=== PATIENT | female | born 1945 | race Caucasian/White ===

== ENCOUNTER → 2016-07-11 | Outpatient (CLI) | payer MEDICARE ==
[~2016-07-11] MED LIST: ACIDOPHILUS1 CAP PO; ALBUTEROL-200 PUFFS/ IH; ALBUTEROL2.5 MG/NEB IN; ALPRAZOLAM0.25 MG PO; ARAVA20 MG PO; ATORVASTATIN CA40 MG PO; BACLOFEN 10MG T10 MG PO; BENICAR HCT 12.1 TA1 PO; BENICAR HCT 12.1 TAB PO; BENICAR40 MG PO; BISOPROLOL 5MG T5 MG PO; BISOPROLOL FUMA10 MG PO; BISOPROLOL5 MG PO; CAPSAICIN; CARDIZEM GENERI30 MG PO; CELLCEPT500 M1 IV; CIPRO 500MG TA500 MG PO; COUMADIN 2.5MG2.5 MG PO; CYCLOBENZ5 MG PO; CYCLOBENZAPRINE10 MG PO; DIOVAN HCT 25 M1 TA1 PO; DIPHENHYDRAMINE25 M1 PO; DIPHENHYDRAMINE25 M3 PO; DOCUSATE SODIU100 MG PO; EXFORGE 5 MG-161 TAB PO; FENTANYL 225 MCG/EAC TD; FISH OIL1000 MG PO; FLOVENT 11110 MCG/PU IH; FOLIC ACID 1MG T1 MG PO; FOLIC ACID1 MG PO; GLIMEPIRIDE 2MG2 MG PO; HUMALOG100 U/ML SC; HYDROCHLOROTHIA1 TA2 PO; HYDROCODONE 7.51 TAB PO; HYDROCODONE BIT1 T39 PO; IBUPROFEN400 MG PO; JANUVIA50 MG PO; K-DUR 20MEQ TA20 MEQ PO; KEFLEX 500MG.500 MG PO; LEFLUNOMIDE20 MG PO; LEVAQUIN500 MG PO; LIPITOR40 MG PO; LYRICA 100 MG100 MG PO; MACROBID 100MG100 MG PO; METFORMIN500 MG PO; METHOTREXATE 22.5 MG PO; MIRALAX17 GM/PACK PO; MULTAQ400 M1 PO; MULTAQ400 MG PO; NEURONTIN 100100 MG PO; NEURONTIN800 MG PO; NITRO BID PO; NITROFURANTOIN100 M4 PO; NOVOLIN 70/30 710 ML SC; NOVOLOG100 U/ML SC; NYSTATIN 1100000 UNI PO; NYSTATIN TO30 GM/BOT TP; Novolog100 U/ML SC; ONDANSETRON HYDR4 MG PO; PANTOPRAZOLE SO40 M1 PO; PERCOCET 10 MG1 EACH PO; PHENERGAN 25MG.25 M1 PO; PLAQUENIL200 MG PO; POTASSIUM CHLO20 ME2 PO; PRAVACHOL40 MG PO; PRAVASTATIN 40M40 MG PO; PREDNISONE 20MG20 MG PO; PROMETHAZINE HC25 M1 PO; PROVENTIL0.09 MG/A1 IH; PROVENTIL0.09 MG/Ac IH; RANEXA500 M1 PO; ROXICODONE5 MG PO; SOMA 350MG TAB350 MG PO; SYMBICORT1 AE1 IH; TREXALL10 MG PO; TRIBENZOR 10 MG1 TAB; TRIBENZOR1 TA1 PO; VICODIN 5/500 T1 TAB PO; WARFARIN 3MG TAB3 MG PO; WARFARIN SOD5 M1 PO; WARFARIN SODIU2.5 MG PO; WARFARIN SODIUM1 MG PO; ZOLPIDEM 10MG T10 MG PO
== END ==
LOC: LAB 10:34
DX: I48.0 Paroxysmal atrial fibrillation (principal); Z79.01 Long term (current) use of anticoagulants

== ENCOUNTER 2016-10-29 14:15 | Emergency (ER) | payer MEDICARE ==
[~2016-10-29] VITALS: Ht 165.1 cm; Wt 73.0 kg
[~2016-10-29 14:15] MED LIST changes: +OMNICEF250 MG/5 M GT
--- OUTSIDE RECORDS SUMMARY | 2016-10-29 14:26 | External Medical Summary Rpt ---
Author Author [facility] Organization [facility] Address Unknown Phone Unavailable Care Team Providers Care Transformer Maker Name Role Phone DEANDRA, (REF) PCP [phone] Encounter [facility] [id number] Date(s): 10/21/16 - 10/25/16 [facility] [address] [place] [id number]- Discharge Diagnosis: Ileus Discharge Disposition: IP Self Care / Home Attending Physician: CHRISTIAN ELENA MD-INT Admitting Physician: CHRISTIAN ELENA MD-INT Referring Physician: CHRISTIAN ELENA MD-INT Reason for Visit UNSPECIFIED INTESTINAL OBSTRUCTION Vital Signs Most recent 1 2 3 to oldest [Reference Range]: Temperature Oral Oral Oral Source (10/25/16 3:10 PM) (10/25/16 10:57 AM) (10/25/16 6:35 AM) Temperature Fahrenheit Fahrenheit Fahrenheit Mode (10/25/16 3:10 PM) (10/25/16 10:57 AM) (10/25/16 6:35 AM) Temperature, 99 Deg F 98.2 Deg F 98.7 Deg F Fahrenheit (10/25/16 3:10 PM) (10/25/16 10:57 AM) (10/25/16 6:35 AM) [96.8-99.7 Deg F] Clinical 37.2 Deg C 36.8 Deg C 37.1 Deg C Temperature, (10/25/16 3:10 PM) (10/25/16 10:57 AM) (10/25/16 6:35 AM) C Heart Rate, 75 bpm Apical (10/21/16 5:18 PM) [60-100 bpm] Heart Rate 75 bpm 75 bpm 75 bpm Monitored (10/25/16 3:10 PM) (10/25/16 10:57 AM) (10/25/16 6:35 AM) [60-100 bpm] Respiratory 14 Breaths/Min 14 Breaths/Min 18 Breaths/Min Rate [14-20 (10/25/16 6:35 AM) (10/25/16 3:00 AM) (10/24/16 11:00 PM) Breaths/Min] Blood 124/73 mmHg 119/69 mmHg 116/70 mmHg Pressure (10/25/16 3:10 PM) (10/25/16 10:57 AM) (10/25/16 6:35 AM) [90-140/60-9 0 mmHg] Mean 86 89 95 Arterial (10/25/16 3:10 PM) (10/25/16 10:57 AM) (10/25/16 3:00 AM) Pressure (MAP)-BMDI Blood 145/72 mmHg Pressure *HI* Invasive (10/21/16 5:18 PM) [90-140/60-9 0 mmHg] Mean 100 mmHg Arterial (10/21/16 5:18 PM) Pressure, Line 1 Oxygen 96 % 98 % 96 % Saturation (10/23/16 9:00 AM) (10/22/16 8:57 PM) (10/22/16 8:00 AM) [94-100 %] Oxygen Room air Room air Room air Therapy Mode (10/25/16 8:00 AM) (10/25/16 6:35 AM) (10/24/16 6:08 PM) FiO2 Nursing 96 % 97 % 96 % (10/25/16 8:00 AM) (10/25/16 6:35 AM) (10/24/16 6:08 PM) Height Entry [place] Format (10/24/16 5:29 AM) (10/23/16 5:15 AM) (10/22/16 5:56 AM) Height/Lengt 5 ft 5 ft 5 ft h, ETHIOPIAN (10/24/16 5:29 AM) (10/23/16 5:15 AM) (10/22/16 5:56 AM) (ft) Height/Lengt 0.05 Inch 0.05 Inch 0.05 Inch h ETHIOPIAN (10/24/16 5:29 AM) (10/23/16 5:15 AM) (10/22/16 5:56 AM) CLINICALHEIG 152.53 cm 152.53 cm 152.53 cm HT (10/24/16 5:29 AM) (10/23/16 5:15 AM) (10/22/16 5:56 AM) Weight Bed scale Source (10/21/16 4:39 PM) Weight Entry [place] Format (10/21/16 4:39 PM) Weight 162 lb Citizen Of [place] lb (10/21/16 4:39 PM) CLINICALWEIG 73.64 kg HT (10/21/16 4:39 PM) Body Surface 1.71 m2 Area (BSA) (10/21/16 4:39 PM) Body Mass 31.7 kg/m2 Index *HI* [19.0-24.0 (10/21/16 4:39 PM) kg/m2] Routine Bed scale Bed scale Bed scale Weight (10/25/16 5:47 AM) (10/24/16 5:29 AM) (10/23/16 5:15 AM) Source Routine [place] Weight Entry (10/25/16 5:47 AM) (10/24/16 5:29 AM) (10/23/16 5:15 AM) Format Routine 158 lb 162 lb 170 lb Weight, (10/25/16 5:47 AM) (10/24/16 5:29 AM) (10/23/16 5:15 AM) Pounds Routine 6 oz Weight, (10/25/16 5:47 AM) Ounces Routine 73.64 kg 77.27 kg 80.45 kg Weight (10/24/16 5:29 AM) (10/23/16 5:15 AM) (10/22/16 5:56 AM) Calculation Body Surface 1.71 m2 1.74 m2 1.77 m2 Area (BSA), (10/24/16 5:29 AM) (10/23/16 5:15 AM) (10/22/16 5:56 AM) Routine [place] Body 45 kg Weight (10/21/16 4:39 PM) Problem List Condition Effective Status Health Informant Dates Status Anxiety(Conf Active irmed) Asthma(Confi Active rmed) Atrial Active fibrillation (Confirmed) Back Active pain(Confirm ed) 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), right sided weakness(Con firmed) Diabetes(Con Active firmed) Dizziness(Co Active patient nfirmed) Fatigue(Conf Active patient irmed) GERD Active (gastroesoph ageal reflux disease)(Con firmed) Status post 07/20/16 Active patient insertion of percutaneous endoscopic gastrostomy (PEG) tube(Confirm ed) Migraine-clu Active patient ster headache syndrome(Con firmed) HTN Active (hypertensio n)(Confirmed ) hx Active MRSA(Confirm ed) hx Active PPM(Confirme d) Hyperlipidem Active ia(Confirmed ) Hyperlipidem Active patient ia(Confirmed ) Hypertension Active patient (Confirmed) Ileus(Confir Active med) Migraines(Co Active nfirmed) Migraines(Co Active patient nfirmed) Osteoarthrit Active is(Confirmed ) Palpitations Active patient (Confirmed) Paroxysmal Active a-fib(Confir med) PUD (peptic Active ulcer disease)(Con firmed) CARSON (renal Resolved artery stenosis)(Co nfirmed) SSS (sick Active sinus syndrome)(Co nfirmed) Syncope(Conf Active irmed) Allergies, Adverse Reactions, Alerts Substance Reaction Severity Status amitriptyline Active aspirin Active beta blockers Active Cafergot Active caffeine Active chlorproMAZINE Active dichloralphenazo Active ne DULoxetine Active ergotamine Active Flexeril Active iodinated Active radiocontrast dyes isometheptene Active mucate Lyrica Active prochlorperazine Active sulfa drugs Active Tape Active trimethoprim Active Medications acetaminophen (Tylenol 325 mg oral tablet)2 Tab, Oral, Every 4 Hours, As Needed, as needed for fever, Refills: 0 ALPRAZolam0.5 mg, Oral, Four Times A Day, As Needed, as needed for anxiety, Refills: 0 apixaban (Eliquis 5 mg oral tablet) 1 Tab, Oral, Two Times A Day, Refills: 0 atorvastatin 80 mg, Oral, At Bedtime, Refills: 0 bisoprolol (bisoprolol 10 mg oral tablet) 1 Tab, Oral, Every Day, Refills: 0 fentaNYL (fentaNYL 50 mcg/hr transdermal film, extended release)1 Patch, TransDermal , Interval Every 72 Hours, Refills: 0 gabapentin (Neurontin) 800 mg, Oral, Four Times A Day, Refills: 0 insulin aspart (NovoLOG) , See Instructions, Before Meals, Sliding Scale SubCutaneous, Refills: 0 lisinopril (lisinopril 10 mg oral tablet) 1 Tab, Oral, Every Day, Refills: 0 melatonin (Melatonin 3 mg oral tablet) 2 Tab, Oral, At Bedtime, Refills: 0 miconazole topical (miconazole 2% topical powder)1 Application, Topical, Two Times A Day, As Needed, Rash, Refills: 0 nystatin Topical, Every Day, Under breasts, As Needed, Rash, Refills: 0 oxyCODONE (oxyCODONE 10 mg oral tablet)1 Tab, Oral, Every 4 Hours, As Needed, as needed for pain, Refills: 0 pantoprazole (Protonix 40 mg oral delayed release tablet)1 Tab, Oral, Every Day, Refills: 0Ordering provider: SILAS DOMINGUEZ polyethylene glycol 3350 (MiraLax) 17 Gram, Oral, Every Day, Refills: 0 rbuvzscvnqpc03 mg, Oral, Four Times A Day, As Needed, as needed for nausea/vomiting, Refills: 0 scopolamine (scopolamine 1.5 mg transdermal film, extended release)1 Patch, TransDermal , Every 3 Days, 10 Day(s), Refills: 0Ordering provider: SILAS DOMINGUEZ Results GENERAL CHEMISTRY Most recent 1 2 3 to oldest [Reference Range]: Sodium Level 145 mmol/L 144 mmol/L 149 mmol/L [136-146 (10/25/16 5:10 AM) (10/24/16 6:00 AM) *HI* mmol/L] (10/23/16 3:52 AM) Potassium 3.3 mmol/L 3.2 mmol/L 3.5 mmol/L Level *LOW* *LOW* (10/23/16 3:52 AM) [3.5-5.1 (10/25/16 5:10 AM) (10/24/16 6:00 AM) mmol/L] Chloride 110 mmol/L 110 mmol/L 112 mmol/L Level (10/25/16 5:10 AM) (10/24/16 6:00 AM) (10/23/16 3:52 AM) [102-112 mmol/L] Carbon 22 mmol/L 25 mmol/L 23 mmol/L Dioxide (10/25/16 5:10 AM) (10/24/16 6:00 AM) (10/23/16 3:52 AM) Level [21-32 mmol/L] Anion Gap 16 12 18 [9-20] (10/25/16 5:10 AM) (10/24/16 6:00 AM) (10/23/16 3:52 AM) Glucose 146 mg/dL 109 mg/dL 104 mg/dL Level *HI* *HI* (10/23/16 3:52 AM) [74-106 (10/25/16 5:10 AM) (10/24/16 6:00 AM) mg/dL] Blood Urea 18 mg/dL 20 mg/dL 23 mg/dL Nitrogen (10/25/16 5:10 AM) (10/24/16 6:00 AM) *HI* [7-22 mg/dL] (10/23/16 3:52 AM) Creatinine 1.00 mg/dL 0.80 mg/dL 0.80 mg/dL Level (10/25/16 5:10 AM) (10/24/16 6:00 AM) (10/23/16 3:52 AM) [0.55-1.02 mg/dL] eGFR 66 mL/min/1.73m2 86 mL/min/1.73m2 86 mL/min/1.73m2 [>=60 (10/25/16 5:10 AM) (10/24/16 6:00 AM) (10/23/16 3:52 AM) mL/min/1.73m 2] eGFR 55 mL/min/1.73m2 71 mL/min/1.73m2 71 mL/min/1.73m2 NonAfrican *LOW* (10/24/16 6:00 AM) (10/23/16 3:52 AM) [>=60 (10/25/16 5:10 AM) mL/min/1.73m 2] Bun/Creatini 18.0 25.0 28.8 ne (10/25/16 5:10 AM) *HI* *HI* [8.0-20.0] (10/24/16 6:00 AM) (10/23/16 3:52 AM) Calcium 8.6 mg/dL 8.8 mg/dL 8.7 mg/dL Level (10/25/16 5:10 AM) (10/24/16 6:00 AM) (10/23/16 3:52 AM) [8.5-10.1 mg/dL] Protein 6.4 Gram/dL 6.4 Gram/dL Total (10/22/16 6:34 AM) (10/21/16 5:37 PM) [6.4-8.2 Gram/dL] Albumin 3.1 Gram/dL 3.5 Gram/dL Level *LOW* (10/21/16 5:37 PM) [3.4-5.0 (10/22/16 6:34 AM) Gram/dL] Globulin 3.3 Gram/dL 2.9 Gram/dL [1.5-4.5 (10/22/16 6:34 AM) (10/21/16 5:37 PM) Gram/dL] A/G Ratio 0.9 1.2 [1.1-2.5] *LOW* (10/21/16 5:37 PM) (10/22/16 6:34 AM) Bilirubin 0.8 mg/dL 0.5 mg/dL Total (10/22/16 6:34 AM) (10/21/16 5:37 PM) [0.2-1.3 mg/dL] Alk Phos 124 Units/Liter 118 Units/Liter [27-136 (10/22/16 6:34 AM) (10/21/16 5:37 PM) Units/Liter] AST [5-37 14 Units/Liter 23 Units/Liter Units/Liter] (10/22/16 6:34 AM) (10/21/16 5:37 PM) ALT [12-78 18 Units/Liter 30 Units/Liter Units/Liter] (10/22/16 6:34 AM) (10/21/16 5:37 PM) Magnesium 1.9 mg/dL 2.4 mg/dL 2.4 mg/dL Level (10/25/16 5:10 AM) (10/22/16 6:34 AM) (10/21/16 5:36 PM) [1.5-2.4 mg/dL] Phosphorus 3.8 mg/dL [2.3-4.9 (10/22/16 6:34 AM) mg/dL] Device Notified Nurse Notified Nurse No action Require Comment 1 RBV *NA*(10/25/16 RBV *NA*(10/24/16 *NA*(10/24/16 5:51 AM) 9:34 PM) 5:49 PM) Device Notified MD RBV Comment 2 *NA* (10/22/16 4:00 PM) Glucose POC2 175 mg/dL 151 mg/dL 135 mg/dL [70-110 *HI* *HI*(10/25/16 10:48 *HI* mg/dL] (10/25/16 3:47 PM) AM) (10/25/16 5:51 AM) Hgb A1C 6.60 % [4.20-6.30 *HI* %] (10/22/16 6:34 AM) Lactate 239 Units/Liter 274 Units/Liter Dehydrogenas (10/22/16 6:34 AM) *HI* e [84-246 (10/21/16 5:37 PM) Units/Liter] eAVG Glucose 143 mg/dL *NA* (10/22/16 6:34 AM) CARDIAC SPECIFIC MARKERS Most recent 1 2 3 to oldest [Reference Range]: ProBNP 2094 pg/mL [0-125 *HI* pg/mL] (10/23/16 3:52 AM) HEMATOLOGY Most recent 1 2 3 to oldest [Reference Range]: WBC 9.3 K/uL 7.3 K/uL 8.6 K/uL [4.0-10.0 (10/23/16 3:52 AM) (10/22/16 6:34 AM) (10/21/16 5:37 PM) K/uL] RBC 3.23 Million/uL 3.26 Million/uL 3.57 Million/uL [3.93-5.22 *LOW* *LOW* *LOW* Million/uL] (10/23/16 3:52 AM) (10/22/16 6:34 AM) (10/21/16 5:37 PM) Hgb 10.5 g/dL 10.5 g/dL 11.8 g/dL [11.2-15.7 *LOW* *LOW* (10/21/16 5:37 PM) g/dL] (10/23/16 3:52 AM) (10/22/16 6:34 AM) Hct 32.3 % 31.9 % 35.7 % [34.1-44.9 *LOW* *LOW* (10/21/16 5:37 PM) %] (10/23/16 3:52 AM) (10/22/16 6:34 AM) MCV 100.0 fL 97.9 fL 100.0 fL [79.0-94.8 *HI* *HI* *HI* fL] (10/23/16 3:52 AM) (10/22/16 6:34 AM) (10/21/16 5:37 PM) MCH 32.5 pg 32.2 pg 33.1 pg [25.6-32.2 *HI* (10/22/16 6:34 AM) *HI* pg] (10/23/16 3:52 AM) (10/21/16 5:37 PM) MCHC 32.5 Gram/dL 32.9 Gram/dL 33.1 Gram/dL [32.2-36.5 (10/23/16 3:52 AM) (10/22/16 6:34 AM) (10/21/16 5:37 PM) Gram/dL] Platelet 168 K/uL 144 K/uL 196 K/uL Count (10/23/16 3:52 AM) *LOW* (10/21/16 5:37 PM) [163-369 (10/22/16 6:34 AM) K/uL] MPV 11.2 fL 11.6 fL 12.3 fL [9.4-12.4 (10/23/16 3:52 AM) (10/22/16 6:34 AM) (10/21/16 5:37 PM) fL] RDW 13.8 % 13.5 % 13.8 % [11.6-14.4 (10/23/16 3:52 AM) (10/22/16 6:34 AM) (10/21/16 5:37 PM) %] Neut % 68.4 % 65.6 % 61.8 % [34.0-71.0 (10/23/16 3:52 AM) (10/22/16 6:34 AM) (10/21/16 5:37 PM) %] Neut # 6.35 K/uL 4.80 K/uL 5.29 K/uL [1.56-6.13 *HI* (10/22/16 6:34 AM) (10/21/16 5:37 PM) K/uL] (10/23/16 3:52 AM) Lymph % 23.3 % 26.4 % 29.8 % [19.3-53.1 (10/23/16 3:52 AM) (10/22/16 6:34 AM) (10/21/16 5:37 PM) %] Lymph # 2.17 x10(3)/uL 1.93 x10(3)/uL 2.56 x10(3)/uL [1.00-3.90 (10/23/16 3:52 AM) (10/22/16 6:34 AM) (10/21/16 5:37 PM) x10(3)/uL] [place] % 7.7 % 6.4 % 5.7 % [3.0-9.0 %] (10/23/16 3:52 AM) (10/22/16 6:34 AM) (10/21/16 5:37 PM) [place] # 0.72 K/uL 0.47 K/uL 0.49 K/uL [0.16-1.00 (10/23/16 3:52 AM) (10/22/16 6:34 AM) (10/21/16 5:37 PM) K/uL] Eos % 0.1 % 1.0 % 2.3 % [0.0-7.0 %] (10/23/16 3:52 AM) (10/22/16 6:34 AM) (10/21/16 5:37 PM) Eos # 0.01 x10(3)/uL 0.07 x10(3)/uL 0.20 x10(3)/uL [0.00-0.80 (10/23/16 3:52 AM) (10/22/16 6:34 AM) (10/21/16 5:37 PM) x10(3)/uL] Baso % 0.2 % 0.3 % 0.2 % [0.0-1.5 %] (10/23/16 3:52 AM) (10/22/16 6:34 AM) (10/21/16 5:37 PM) Baso # 0.02 x10(3)/uL 0.02 x10(3)/uL 0.02 x10(3)/uL [0.00-0.20 (10/23/16 3:52 AM) (10/22/16 6:34 AM) (10/21/16 5:37 PM) x10(3)/uL] Slide Review No No No (10/23/16 3:52 AM) (10/22/16 6:34 AM) (10/21/16 5:37 PM) IG# 0.03 x10(3)/uL 0.02 x10(3)/uL 0.02 x10(3)/uL [0.00-0.05 (10/23/16 3:52 AM) (10/22/16 6:34 AM) (10/21/16 5:37 PM) x10(3)/uL] IG% 0.30 % 0.30 % 0.20 % [0.00-0.60 (10/23/16 3:52 AM) (10/22/16 6:34 AM) (10/21/16 5:37 PM) %] COAGULATION Most recent 1 2 3 to oldest [Reference Range]: PT [9.5-11.3 11.4 Second(s) Second(s)] *HI* (10/22/16 6:34 AM) INR 1.1 [0.0-1.1] (10/22/16 6:34 AM) ENDOCRINOLOGY Most recent 1 2 3 to oldest [Reference Range]: TSH 1.950 mcInt [0.358-3.740 Units/mL (10/21/16 mcInt 5:36 PM) Units/mL] Immunizations No data available for this section Procedures Procedure Date Related Body Site Diagnosis colon resection peg tube insertion Social History Social History Response Type Smoking Status Never smoker Assessment and Plan Extracted from: Title: SOAP Note Author: SILAS DOMINGUEZ Date: 10/24/16 Subjective Nauseated again Abdominal pain no passage of gas or stool active bowel sounds Review of Systems Constitutional: No fever, No chills. Eye: Negative. Ear/Nose/Mouth/Throat: Negative. Respiratory: Negative. Cardiovascular: No chest pain. Gastrointestinal: No nausea, No vomiting, No diarrhea. Genitourinary: No dysuria. Hematology/Lymphatics: Negative. Endocrine: Negative. Immunologic: No recurrent fevers. Musculoskeletal: No back pain. Integumentary: No rash. Neurologic: Negative. Psychiatric: Negative. Health StatusAllergies:Allergic Reactions (Selected)Severity Not DocumentedAmitriptyline- No reactions were documented.Aspirin- No reactions were documented.Beta blockers- No reactions were documented.ChlorproMAZINE- No reactions were documented.DULoxetine- No reactions were documented.Ergotamine- No reactions were documented.Prochlorperazine- No reactions were documented.Sulfa drugs- No reactions were documented.Trimethoprim- No reactions were documented.Nonallergic Reactions (Selected)Severity Not DocumentedIodinated radiocontrast dyes- No reactions were documented.,Allergies (1) ActiveReactioniodinated radiocontrast dyesNone DocumentedCurrent medications: (Selected)Inpatient MedicationsOrderedAtivan: 0.5 mg, Oral, Q4H, PRN: AnxietyDuoNeb 0.5 mg-2.5 mg/3 mL inhalation solution: 3 mL, Nebulized Inhalation, Q6H, PRN: Shortness of BreathDuragesic-50: 1 Patch, TransDermal, [id number]: 5 mg, Oral, BIDMelatonin: 3 mg, Oral, At Bedtime, PRN: SleepNeurontin: 800 mg, Oral, QID, PRN: PainPhenergan: 12.5 mg, IV Push, Q6H, PRN: Nausea/VomitingPhenergan: 12.5 mg, Oral, Q6H, PRN: NauseaProtonix: 40 mg, Oral, DailyTylenol: 650 mg, Oral, Q4H, PRN: Pain (Mild 1-3)Zofran: 4 mg, IV Push, Q4H, PRN: Nauseabaclofen: 10 mg, Oral, TID, PRN: Spasmsbisoprolol: 10 mg, Oral, Dailycalcium gluconate: 1 Gram, 10 mL, 60 mL/Hr, IV Piggyback, Daily, PRN: Other (See Comment)calcium gluconate: 2 Gram, 20 mL, 120 mL/Hr, IV Piggyback, Daily, PRN: Other (See Comment)calcium gluconate: 2 Gram, 20 mL, 120 mL/Hr, IV Piggyback, Q12H, PRN: Other (See Comment)hydrALAZINE: 10 mg, IV Push, Q6H, PRN: Hypertensioninsulin regular sliding scale: Scale B, SubCutaneous, G4Xxmbquteyxb: 10 mg, Oral, Dailymagnesium sulfate: 2 Gram, 50 mL, 25 mL/Hr, IV Piggyback, Daily, PRN: Other (See Comment)magnesium sulfate: 2 Gram, 50 mL, 25 mL/Hr, IV Piggyback, Q2H, PRN: Other (See Comment)morphine: 2 mg, IV Push, Q4H, PRN: Pain (Severe 7-10)oxyCODONE: 5 mg, Oral, Q4H, PRN: Pain (Moderate 4-6)potassium chloride 10 mEq/50 mL intravenous solution: 10 mEq, 50 mL, 50 mL/Hr, IV Piggyback, Q1H, PRN: Other (See Comment)potassium chloride 20 mEq oral tablet, extended release: 20 mEq, 1 Tab, Oral, Q2H, PRN: Other (See Comment)potassium chloride 20 mEq oral tablet, extended release: 60 mEq, 3 Tab, Oral, Q2H, PRN: Other (See Comment)scopolamine 1.5 mg transdermal film, extended release: 1 Patch, TransDermal, W2Bmdfccasgm phosphate: 15 mMole, 5 mL, 50 mL/Hr, IV Piggyback, Daily, PRN: Other (See Comment)sodium phosphate: 15 mMole, 5 mL, 50 mL/Hr, IV Piggyback, Q6H, PRN: Other (See Comment)Documented MedicationsDocumentedALPRAZolam: 0.5 mg, Oral, QID, PRN: as needed for anxiety, 0 Refill(s)Eliquis 5 mg oral tablet: 1 Tab, Oral, BID, 60 Tab, 0 Refill(s)Melatonin 3 mg oral tablet: Tab, Oral, At Bedtime, 0 Refill(s)MiraLax: Gram, Oral, Daily, 0 Refill(s)Neurontin: 800 mg, Oral, QID, 0 Refill(s)NovoLO Units, SubCutaneous, TIDAC, 0 Refill(s)Tylenol 325 mg oral tablet: 2 Tab, Oral, Q4H, PRN: as needed for fever, 0 Refill(s)atorvastatin: 80 mg, Oral, At Bedtime, 0 Refill(s)baclofen 10 mg oral tablet: 1 Tab, Oral, TID, 270 Tab, 0 Refill(s)bisoprolol 10 mg oral tablet: Tab, Oral, Daily, 0 Refill(s)docusate-senna 50 mg-8.6 mg oral tablet: 2 Tab, Oral, Once a day (at bedtime), 30 Tab, 0 Refill(s)famotidine 20 mg oral tablet: 1 Tab, Oral, BID, 180 Tab, 0 Refill(s)fentaNYL 50 mcg/hr transdermal film, extended release: 1 Patch, TransDermal, U66LJqv, 0 Refill(s)folic acid: 1 mg, Oral, Daily, 0 Refill(s)hydrOXYzine hydrochloride 10 mg oral tablet: Tab, Oral, QID, PRN: as needed for anxiety, 0 Refill(s)hydroxychloroquine 200 mg oral tablet: Tab, Oral, BID, 0 Refill(s)lisinopril 10 mg oral tablet: Tab, Oral, Daily, 0 Refill(s)oxyCODONE 5 mg oral tablet: Tab, Oral, Q4H, PRN: Pain (Severe 7-10), 0 Refill(s)promethazine: 25 mg, Oral, QID, PRN: as needed for nausea/vomiting, 0 Refill(s),Medications (29) ActiveScheduled: (7)apixaban 5 mg tab 5 mg 1 Tab, Oral, BIDbisoprolol 5 mg tab 10 mg 2 Tab, Oral, DailyfentaNYL 50 mcg/hr 72 hr patch 1 Patch, TransDermal, W12RCwuhuevmkx regular 1 unit/0.01 mL inj 3mL Scale B, SubCutaneous, O2Omcpxmnldua 10 mg tab 10 mg 1 Tab, Oral, Dailypantoprazole EC 40 mg tab 40 mg 1 Tab, Oral, Dailyscopolamine 1.5 mg/72 hr patch 1 Patch, TransDermal, I6DwvvNppdkqapak: (0)PRN: (22)acetaminophen 325 mg tab 650 mg 2 Tab, Oral, S4Ceuyqmeymg-ywvqrktypbj inh 3 mL 3 mL, Nebulized Inhalation, A9Noscjgcsx 10 mg tab 10 mg 1 Tab, Oral, TIDcalcium gluconate 1 Gram 10 mL, IV Piggyback, Dailycalcium gluconate 2 Gram 20 mL, IV Piggyback, Dailycalcium gluconate 2 Gram 20 mL, IV Piggyback, J99Lycepalvruq 250 mg/5 mL liq 60 mL 800 mg 16 mL, Oral, QIDhydrALAZINE 20 mg/1 mL inj 10 mg 0.5 mL, IV Push, K7FUIVlktueq 0.5 mg tab 0.5 mg 1 Tab, Oral, J5Hfjnchenjh sulfate 2 Gram 50 mL, IV Piggyback, Dailymagnesium sulfate 2 Gram 50 mL, IV Piggyback, Z2Uxndalepqn 1 mg tab 3 mg 3 Tab, Oral, At Bedtimemorphine 2 mg/1 ml cpjt inj 2 mg 1 mL, IV Push, X5Adxtkhlmthuw 4 mg/2 mL inj 4 mg 2 mL, IV Push, I1LpxpHIQCZR 5 mg tab 5 mg 1 Tab, Oral, P9Zqgztlcvuq chloride 10 mEq 50 mL, IV Piggyback, P5Pxemeflexe chloride CR 20 mEq tab 20 mEq 1 Tab, Oral, Q2Gcdbehafsh chloride CR 20 mEq tab 60 mEq 3 Tab, Oral, O5Gfbjcrrmkiioo 25 mg tab 12.5 mg 0.5 Tab, Oral, F3Qiitlinwcjewq 25 mg/1 mL inj 12.5 mg 0.5 mL, IV Push, I1Anwxwjy phosphate 15 mMole 5 mL, IV Piggyback, Dailysodium phosphate 15 mMole 5 mL, IV Piggyback, V7GQtkooad list:MedicalAnxiety / SNOMED CT [id number] / ConfirmedAsthma / SNOMED CT [id number] / ConfirmedAtrial fibrillation / SNOMED CT [id number] / ConfirmedBack pain / SNOMED CT [id number] / ConfirmedDiabetes / SNOMED CT [id number] / ConfirmedGERD (gastroesophageal reflux disease) / SNOMED CT [id number] / ConfirmedHTN (hypertension) / SNOMED CT [id number] / Confirmedhx MRSA / Confirmedhx PPM / ConfirmedHyperlipidemia / SNOMED CT [id number] / ConfirmedMigraines / SNOMED CT [id number] / ConfirmedOsteoarthritis / SNOMED CT [id number] / ConfirmedParoxysmal a-fib / SNOMED CT [id number] / ConfirmedPUD (peptic ulcer disease) / SNOMED CT [id number] / ConfirmedSSS (sick sinus syndrome) / SNOMED CT [id number]-[id number] / ConfirmedSyncope / SNOMED CT [id number] / ConfirmedResolved: CARSON (renal artery stenosis) / SNOMED CT [id number],Active Problems (22)Anxiety Asthma Atrial fibrillation Back pain Diabetes Dizziness Fatigue GERD (gastroesophageal reflux disease) HTN (hypertension) hx MRSA hx PPM Hyperlipidemia Hyperlipidemia Hypertension Migraines Migraines Osteoarthritis Palpitations Paroxysmal a-fib PUD (peptic ulcer disease) SSS (sick sinus syndrome) Syncope Problem list: Medical Anxiety / SNOMED CT [id number] / Confirmed Asthma / SNOMED CT [id number]-[id number] / Confirmed Atrial fibrillation / SNOMED CT [id number] / Confirmed Back pain / SNOMED CT [id number] / Confirmed Diabetes / SNOMED CT [id number] / Confirmed GERD (gastroesophageal reflux disease) / SNOMED CT [id number]-AV5P- [id number] / Confirmed HTN (hypertension) / SNOMED CT [id number] / Confirmed hx MRSA / Confirmed hx PPM / Confirmed Hyperlipidemia / SNOMED CT [id number] / Confirmed Migraines / SNOMED CT [id number] / Confirmed Osteoarthritis / SNOMED CT [id number] / Confirmed Paroxysmal a-fib / SNOMED CT [id number] / Confirmed PUD (peptic ulcer disease) / SNOMED CT [id number] / Confirmed SSS (sick sinus syndrome) / SNOMED CT [id number]-[id number] / Confirmed Syncope / SNOMED CT [id number] / Confirmed Resolved: CARSON (renal artery stenosis) / SNOMED CT [id number]- [id number], Active Problems (22) Anxiety Asthma Atrial fibrillation Back pain Diabetes Dizziness Fatigue GERD (gastroesophageal reflux disease) HTN (hypertension) hx MRSA hx PPM Hyperlipidemia Hyperlipidemia Hypertension Migraines Migraines Osteoarthritis Palpitations Paroxysmal a-fib PUD (peptic ulcer disease) SSS (sick sinus syndrome) Syncope ObjectiveVS/MeasurementsVital Signs/Vital Measures10/24/2016 11:09 EDT Temperature Source Oral Temperature Mode Fahrenheit Temperature, Fahrenheit 98.7 Deg F Clinical Temperature, C 37.1 Deg C Heart Rate Monitored 75 bpm Systolic Blood Pressure 142 mmHg HI Diastolic Blood Pressure 72 mmHg Mean Arterial Pressure (MAP)-[facility] 9210/24/2016 6:30 EDT Temperature Source Oral Temperature Mode Fahrenheit Temperature, Fahrenheit 98.3 Deg F Clinical Temperature, C 36.8 Deg C Heart Rate Monitored 74 bpm Respiratory Rate 16 Breaths/Min Systolic Blood Pressure 137 mmHg Diastolic Blood Pressure 79 mmHg Oxygen Therapy Mode Room air10/24/2016 2:59 EDT Temperature Source Oral Temperature Mode Fahrenheit Temperature, Fahrenheit 98.1 Deg F Clinical Temperature, C 36.7 Deg C Heart Rate Monitored 74 bpm Respiratory Rate 18 Breaths/Min Systolic Blood Pressure 125 mmHg Diastolic Blood Pressure 68 mmHg Mean Arterial Pressure (MAP)-[facility] 8110/24/2016 0:12 EDT Temperature Source Oral Temperature Mode Fahrenheit Temperature, Fahrenheit 99.7 Deg F Clinical Temperature, C 37.6 Deg C Heart Rate Monitored 76 bpm Respiratory Rate 18 Breaths/Min Systolic Blood Pressure 146 mmHg HI Diastolic Blood Pressure 84 mmHg10/24/2016 0:00 EDT Oxygen Therapy Mode Room air10/23/2016 19:43 EDT Temperature Source Oral Temperature Mode Fahrenheit Temperature, Fahrenheit 97.9 Deg F Clinical Temperature, C 36.6 Deg C Heart Rate Monitored 75 bpm Respiratory Rate 16 Breaths/Min Systolic Blood Pressure 145 mmHg HI Diastolic Blood Pressure 87 mmHg Mean Arterial Pressure (MAP)-[facility] 115 Oxygen Therapy Mode Room air10/23/2016 16:03 EDT Temperature Source Oral Temperature Mode Fahrenheit Temperature, Fahrenheit 98.6 Deg F Clinical Temperature, C 37 Deg C Heart Rate Monitored 76 bpm Respiratory Rate 18 Breaths/Min Systolic Blood Pressure 158 mmHg HI Diastolic Blood Pressure 87 mmHg Mean Arterial Pressure (MAP)-[facility] 12110/23/2016 11:37 EDT Temperature Source Oral Temperature Mode Fahrenheit Temperature, Fahrenheit 99.1 Deg F Clinical Temperature, C 37.3 Deg C Heart Rate Monitored 75 bpm Respiratory Rate 18 Breaths/Min Systolic Blood Pressure 158 mmHg HI Diastolic Blood Pressure 81 mmHg Mean Arterial Pressure (MAP)-[facility] 13010/23/2016 11:20 EDT Oxygen Therapy Mode Room air10/23/2016 9:00 EDT Respiratory Rate 18 Breaths/Min Oxygen Saturation 96 % Oxygen Therapy Mode Room air10/23/2016 5:49 EDT Temperature, Fahrenheit 98.4 Deg F Heart Rate Monitored 76 bpm Respiratory Rate 20 Breaths/Min Systolic Blood Pressure 148 mmHg HI Diastolic Blood Pressure 77 mmHg10/23/2016 3:02 EDT Temperature Source Oral Temperature Mode Fahrenheit Temperature, Fahrenheit 98.8 Deg F Temperature, Fahrenheit 98.8 Deg F Clinical Temperature, C 37.1 Deg C Heart Rate Monitored 75 bpm Respiratory Rate 16 Breaths/Min Respiratory Rate 18 Breaths/Min Systolic Blood Pressure 146 mmHg HI Systolic Blood Pressure 146 mmHg HI Diastolic Blood Pressure 74 mmHg Diastolic Blood Pressure 74 mmHg,Vitals Signs (last 24 hrs) Last Charted Minimum MaximumTemp 98.7 (OCTOBER 24 11:09)97.9 (OCTOBER 23 19:43)99.7 (OCTOBER 24 00:12)Mon HR 75 (OCTOBER 24 11:09)74 (OCTOBER 24 02:59)76 (OCTOBER 23 16:03)Resp Rate 16 (OCTOBER 24 06:30)16 (OCTOBER 23 19:43)18 (OCTOBER 23 16:03)SBP H 142 (OCTOBER 24 11:09)125 (OCTOBER 24 02:59)H 158 (OCTOBER 23 16:03)DBP 72 (OCTOBER 24 11:09)68 (OCTOBER 24 02:59)87 (OCTOBER 23 16:03)MAP 92 (OCTOBER 24 11:09)81 (OCTOBER 24 02:59)121 (OCTOBER 23 16:03), Measurements from flowsheet : Measurements10/24/2016 5:29 EDT Height Entry Format [place] Height/Length, ETHIOPIAN (ft) 5 ft Height/Length ETHIOPIAN 0.05 Inch CLINICALHEIGHT 152.53 cm Routine Weight Source Bed scale Routine Weight Entry Format [place] Routine Weight, Pounds 162 lb Routine Weight Calculation 73.64 kg Body Mass Index (BMI), Routine 31.65 kg/m2 Body Surface Area (BSA), Routine 1.71 m210/23/2016 5:15 EDT Height Entry Format [place] Height/Length, ETHIOPIAN (ft) 5 ft Height/Length ETHIOPIAN 0.05 Inch CLINICALHEIGHT 152.53 cm Routine Weight Source Bed scale Routine Weight Entry Format [place] Routine Weight, Pounds 170 lb Routine Weight Calculation 77.27 kg Body Mass Index (BMI), Routine 33.21 kg/m2 Body Surface Area (BSA), Routine 1.74 s2Kllxahj: Alert and oriented, No acute distress.Eye: Pupils are equal, round and reactive to light, Extraocular movements are intact, Normal conjunctiva.HENT: Normocephalic, No pharyngeal erythema.Neck: Supple, Non-tender, No lymphadenopathy.Respiratory: Lungs are clear to auscultation, Breath sounds are equal, No chest wall tenderness.Cardiovascular: Normal rate, Regular rhythm, No murmur, Good pulses equal in all extremities.Gastrointestinal: Soft, Non-tender, Non-distended, Normal bowel sounds.Genitourinary: No costovertebral angle tenderness.Musculoskeletal: Normal range of motion, No tenderness.Integumentary: Warm, No rash.Neurologic: Alert, Oriented, No focal deficits.Psychiatric: Cooperative, Appropriate mood & affect. Body Surface Area (BSA), Routine 1.74 m2 General: Alert and oriented, No acute distress. Eye: Pupils are equal, round and reactive to light, Extraocular movements are intact, Normal conjunctiva. HENT: Normocephalic, No pharyngeal erythema. Neck: Supple, Non-tender, No lymphadenopathy. Respiratory: Lungs are clear to auscultation, Breath sounds are equal, No chest wall tenderness. Cardiovascular: Normal rate, Regular rhythm, No murmur, Good pulses equal in all extremities. Gastrointestinal: Soft, Non-tender, Non-distended, Normal bowel sounds. Genitourinary: No costovertebral angle tenderness. Musculoskeletal: Normal range of motion, No tenderness. Integumentary: Warm, No rash. Neurologic: Alert, Oriented, No focal deficits. Psychiatric: Cooperative, Appropriate mood & affect. Review / Management OCTOBER 24 06:00 144 | 110 | 20 / H 109 L 3.2 | 25 | 0.80 \\ No Radiology Results Found Results review: Labs (Last four charted values) WBC 9.3(OCTOBER 23)7.3(OCTOBER 22)8.6(OCTOBER 21) HB L 10.5(OCTOBER 23)L 10.5(OCTOBER 22)11.8(OCTOBER 21) HCT L 32.3(OCTOBER 23)L 31.9(OCTOBER 22)35.7(OCTOBER 21) Plt 168(OCTOBER 23)L 144(OCTOBER 22)196(OCTOBER 21) Na 144(OCTOBER 24)H 149(OCTOBER 23)146(OCTOBER 22)H 147(OCTOBER 21) K L 3.2(OCTOBER 24)3.5(OCTOBER 23)4.0(OCTOBER 22)4.3(OCTOBER 21) Cl 110(OCTOBER 24)112(OCTOBER 23)112(OCTOBER 22)107(OCTOBER 21) CO2 25(OCTOBER 24)23(OCTOBER 23)25(OCTOBER 22)26(OCTOBER 21) BUN 20(OCTOBER 24)H 23(OCTOBER 23)H 29(OCTOBER 22)H 36(OCTOBER 21) Cr 0.80(OCTOBER 24)0.80(OCTOBER 23)0.90(OCTOBER 22)H 1.20(OCTOBER 21) Glu R H 109(OCTOBER 24)104(OCTOBER 23)H 114(OCTOBER 22)103(OCTOBER 21) Ca 8.8(OCTOBER 24)8.7(OCTOBER 23)L 8.4(OCTOBER 22)8.8(OCTOBER 21) PT H 11.4(OCTOBER 22) INR 1.1(OCTOBER 22) AST 14(OCTOBER 22)23(OCTOBER 21) ALT 18(OCTOBER 22)30(OCTOBER 21) ALK P 124(OCTOBER 22)118(OCTOBER 21) T Bili 0.8(OCTOBER 22)0.5(OCTOBER 21) PTN 6.4(OCTOBER 22)6.4(OCTOBER 21) ALB L 3.1(OCTOBER 22)3.5(OCTOBER 21) . Impression: Normal sized left ventricle. Mild, concentric, left ventricular hypertrophy. Normal left ventricular systolic function with normal systolic strain pattern. Measured ejection fraction 54%. Abnormal diastolic function. No significant valvular heart disease. Impression and PlanSmall bowel obstructionHistory of CHurg Austyn with h/o Colon eqjtvtmsd-B-ojht, opiates, diabetes-General surgery Dr. Nolen following-clear liquid, G-tube to suction, IV fluidsmonitor electrolytesscopolamine patchenema until clear. will advance diet eventually and hoping to send herHypernatremiaDiscontinue d5 0.45 NS at 100 cc hrmonitorHypokalemiaReplacement protocolmonitorAtrial fibrillation-Continue eliquis- cardiology signed offEcho reviewed. 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 Fentanyl patch 50 g every 3 days-Diabetic neuropathy Neurontin 800 mg 4 times a day when necessary, baclofen 5 mg 3 times a day when necessaryBenign essential Hypertension. Hold lisinopril HCTZ olmesartan for small bowel obstruction. hydralazine prnChronic kidney disease diabetic nephropathyTIme spent30 min monitor Hypokalemia Replacement protocol monitor Atrial fibrillation -Continue eliquis - cardiology signed off Echo reviewed. 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 Fentanyl patch 50 g every 3 days -Diabetic neuropathy Neurontin 800 mg 4 times a day when necessary, baclofen 5 mg 3 times a day when necessary Benign essential Hypertension. Hold lisinopril HCTZ olmesartan for small bowel obstruction. hydralazine prn Chronic kidney disease diabetic nephropathy TIme spent30 min Extracted from: Title: SOAP Note Author: SILAS DOMINGUEZ Date: 10/23/16 Subjective nausea better refuses to have IV line Review of Systems Constitutional: No fever, No chills. Eye: Negative. Ear/Nose/Mouth/Throat: Negative. Respiratory: Negative. Cardiovascular: No chest pain. Gastrointestinal: No nausea, No vomiting, No diarrhea. Genitourinary: No dysuria. Hematology/Lymphatics: Negative. Endocrine: Negative. Immunologic: No recurrent fevers. Musculoskeletal: No back pain. Integumentary: No rash. Neurologic: Negative. Psychiatric: Negative. Health StatusAllergies:Allergic Reactions (Selected)Severity Not DocumentedAmitriptyline- No reactions were documented.Aspirin- No reactions were documented.Beta blockers- No reactions were documented.ChlorproMAZINE- No reactions were documented.DULoxetine- No reactions were documented.Ergotamine- No reactions were documented.Prochlorperazine- No reactions were documented.Sulfa drugs- No reactions were documented.Trimethoprim- No reactions were documented.Nonallergic Reactions (Selected)Severity Not DocumentedIodinated radiocontrast dyes- No reactions were documented.,Allergies (1) ActiveReactioniodinated radiocontrast dyesNone DocumentedCurrent medications: (Selected)Inpatient MedicationsOrderedAtivan: 0.5 mg, IV Push, Q4H, PRN: AgitationDuoNeb 0.5 mg-2.5 mg/3 mL inhalation solution: 3 mL, Nebulized Inhalation, Q6H, PRN: Shortness of BreathDuragesic-50: 1 Patch, TransDermal, P32PJjwTzpcsoa: 5 mg, Oral, BIDNeurontin: 800 mg, Oral, QID, PRN: PainPhenergan: 12.5 mg, IV Push, Q6H, PRN: Nausea/VomitingPhenergan: 12.5 mg, Oral, Q6H, PRN: NauseaProtonix: 40 mg, IV Push, DailySodium Chloride 0.9% 1,000 mL: 125 mL/Hr, IntraVENousTylenol: 650 mg, Oral, Q4H, PRN: Pain (Mild 1-3)Zofran: 4 mg, IV Push, Q4H, PRN: Nauseabaclofen: 10 mg, Oral, TID, PRN: Spasmsbisoprolol: 10 mg, Oral, Dailyinsulin regular sliding scale: Scale B, SubCutaneous, H5Ijkhzfbjyck: 10 mg, Oral, Dailymorphine: 2 mg, IV Push, Q4H, PRN: Pain (Severe 7-10)oxyCODONE: 5 mg, Oral, Q4H, PRN: Pain (Moderate 4-6)scopolamine 1.5 mg transdermal film, extended release: 1 Patch, TransDermal, P3ReruPfhkzydxyz MedicationsDocumentedALPRAZolam: 0.5 mg, Oral, QID, PRN: as needed for anxiety, 0 Refill(s)Eliquis 5 mg oral tablet: 1 Tab, Oral, BID, 60 Tab, 0 Refill(s)Melatonin 3 mg oral tablet: Tab, Oral, At Bedtime, 0 Refill(s)MiraLax: Gram, Oral, Daily, 0 Refill(s)Neurontin: 800 mg, Oral, QID, 0 Refill(s)NovoLO Units, SubCutaneous, TIDAC, 0 Refill(s)Tylenol 325 mg oral tablet: 2 Tab, Oral, Q4H, PRN: as needed for fever, 0 Refill(s)atorvastatin: 80 mg, Oral, At Bedtime, 0 Refill(s)baclofen 10 mg oral tablet: 1 Tab, Oral, TID, 270 Tab, 0 Refill(s)bisoprolol 10 mg oral tablet: Tab, Oral, Daily, 0 Refill(s)docusate-senna 50 mg-8.6 mg oral tablet: 2 Tab, Oral, Once a day (at bedtime), 30 Tab, 0 Refill(s)famotidine 20 mg oral tablet: 1 Tab, Oral, BID, 180 Tab, 0 Refill(s)fentaNYL 50 mcg/hr transdermal film, extended release: 1 Patch, TransDermal, Q86LBwe, 0 Refill(s)folic acid: 1 mg, Oral, Daily, 0 Refill(s)hydrOXYzine hydrochloride 10 mg oral tablet: Tab, Oral, QID, PRN: as needed for anxiety, 0 Refill(s)hydroxychloroquine 200 mg oral tablet: Tab, Oral, BID, 0 Refill(s)lisinopril 10 mg oral tablet: Tab, Oral, Daily, 0 Refill(s)oxyCODONE 5 mg oral tablet: Tab, Oral, Q4H, PRN: Pain (Severe 7-10), 0 Refill(s)promethazine: 25 mg, Oral, QID, PRN: as needed for nausea/vomiting, 0 Refill(s),Medications (18) ActiveScheduled: (7)apixaban 5 mg tab 5 mg 1 Tab, Oral, BIDbisoprolol 5 mg tab 10 mg 2 Tab, Oral, DailyfentaNYL 50 mcg/hr 72 hr patch 1 Patch, TransDermal, X48FVvxrszivhy regular 1 unit/0.01 mL inj 3mL Scale B, SubCutaneous, H7Phmfoaprxjf 10 mg tab 10 mg 1 Tab, Oral, Dailypantoprazole 40 mg inj 40 mg, IV Push, Dailyscopolamine 1.5 mg/72 hr patch 1 Patch, TransDermal, A7BxqsTwrnfxabhn: (1)NaCl 0.9% 1,000 mL 1,000 mL, IntraVENous, 125 mL/HrPRN: (10)acetaminophen 325 mg tab 650 mg 2 Tab, Oral, W8Adkxcmgnqv-lbapajewmov inh 3 mL 3 mL, Nebulized Inhalation, P0Girggnwve 10 mg tab 10 mg 1 Tab, Oral, TIDgabapentin 250 mg/5 mL liq 60 mL 800 mg 16 mL, Oral, QIDLORazepam 2 mg/mL inj 0.5 mg 0.25 mL, IV Push, R4Azphehwme 2 mg/1 ml cpjt inj 2 mg 1 mL, IV Push, A3Vfmtlynzgafx 4 mg/2 mL inj 4 mg 2 mL, IV Push, I5PlltBJQBDV 5 mg tab 5 mg 1 Tab, Oral, B1Zgkcvrmggveye 25 mg tab 12.5 mg 0.5 Tab, Oral, I7Jzqolewukzorx 25 mg/1 mL inj 12.5 mg 0.5 mL, IV Push, X1ZLtlogiv list:MedicalAnxiety / SNOMED CT [id number] / ConfirmedAsthma / SNOMED CT [id number] / ConfirmedAtrial fibrillation / SNOMED CT [id number] / ConfirmedBack pain / SNOMED CT [id number] / ConfirmedDiabetes / SNOMED CT [id number] / ConfirmedGERD (gastroesophageal reflux disease) / SNOMED CT [id number] / ConfirmedHTN (hypertension) / SNOMED CT [id number] / Confirmedhx MRSA / Confirmedhx PPM / ConfirmedHyperlipidemia / SNOMED CT [id number] / ConfirmedMigraines / SNOMED CT [id number] / ConfirmedOsteoarthritis / SNOMED CT [id number] / ConfirmedParoxysmal a-fib / SNOMED CT [id number] / ConfirmedPUD (peptic ulcer disease) / SNOMED CT [id number] / ConfirmedSSS (sick sinus syndrome) / SNOMED CT [id number] / ConfirmedSyncope / SNOMED CT [id number] / ConfirmedResolved: CARSON (renal artery stenosis) / SNOMED CT [id number],Active Problems (22)Anxiety Asthma Atrial fibrillation Back pain Diabetes Dizziness Fatigue GERD (gastroesophageal reflux disease) HTN (hypertension) hx MRSA hx PPM Hyperlipidemia Hyperlipidemia Hypertension Migraines Migraines Osteoarthritis Palpitations Paroxysmal a-fib PUD (peptic ulcer disease) SSS (sick sinus syndrome) Syncope Problem list: Medical Anxiety / SNOMED CT [id number] / Confirmed Asthma / SNOMED CT [id number] / Confirmed Atrial fibrillation / SNOMED CT [id number] / Confirmed Back pain / SNOMED CT [id number] / Confirmed Diabetes / SNOMED CT [id number] / Confirmed GERD (gastroesophageal reflux disease) / SNOMED CT [id number] / Confirmed HTN (hypertension) / SNOMED CT [id number] / Confirmed hx MRSA / Confirmed hx PPM / Confirmed Hyperlipidemia / SNOMED CT [id number] / Confirmed Migraines / SNOMED CT [id number] / Confirmed Osteoarthritis / SNOMED CT [id number] / Confirmed Paroxysmal a-fib / SNOMED CT [id number] / Confirmed PUD (peptic ulcer disease) / SNOMED CT [id number] / Confirmed SSS (sick sinus syndrome) / SNOMED CT [id number] / Confirmed Syncope / SNOMED CT [id number] / Confirmed Resolved: CARSON (renal artery stenosis) / SNOMED CT [id number], Active Problems (22) Anxiety Asthma Atrial fibrillation Back pain Diabetes Dizziness Fatigue GERD (gastroesophageal reflux disease) HTN (hypertension) hx MRSA hx PPM Hyperlipidemia Hyperlipidemia Hypertension Migraines Migraines Osteoarthritis Palpitations Paroxysmal a-fib PUD (peptic ulcer disease) SSS (sick sinus syndrome) Syncope ObjectiveVS/MeasurementsVital Signs/Vital Measures10/23/2016 11:37 EDT Temperature Source Oral Temperature Mode Fahrenheit Temperature, Fahrenheit 99.1 Deg F Clinical Temperature, C 37.3 Deg C Heart Rate Monitored 75 bpm Respiratory Rate 18 Breaths/Min Systolic Blood Pressure 158 mmHg HI Diastolic Blood Pressure 81 mmHg Mean Arterial Pressure (MAP)-[facility] 13010/23/2016 11:20 EDT Oxygen Therapy Mode Room air10/23/2016 9:00 EDT Respiratory Rate 18 Breaths/Min Oxygen Saturation 96 % Oxygen Therapy Mode Room air10/23/2016 5:49 EDT Temperature, Fahrenheit 98.4 Deg F Heart Rate Monitored 76 bpm Respiratory Rate 20 Breaths/Min Systolic Blood Pressure 148 mmHg HI Diastolic Blood Pressure 77 mmHg10/23/2016 3:02 EDT Temperature Source Oral Temperature Mode Fahrenheit Temperature, Fahrenheit 98.8 Deg F Temperature, Fahrenheit 98.8 Deg F Clinical Temperature, C 37.1 Deg C Heart Rate Monitored 75 bpm Respiratory Rate 16 Breaths/Min Respiratory Rate 18 Breaths/Min Systolic Blood Pressure 146 mmHg HI Systolic Blood Pressure 146 mmHg HI Diastolic Blood Pressure 74 mmHg Diastolic Blood Pressure 74 mmHg10/22/2016 22:48 EDT Temperature Source Oral Temperature Mode Fahrenheit Temperature, Fahrenheit 99.5 Deg F Clinical Temperature, C 37.5 Deg C Systolic Blood Pressure 147 mmHg HI Diastolic Blood Pressure 89 mmHg10/22/2016 22:00 EDT Heart Rate Monitored 75 bpm Respiratory Rate 18 Breaths/Min10/22/2016 21:32 EDT Oxygen Therapy Mode Room air10/22/2016 20:57 EDT Temperature, Fahrenheit 98.1 Deg F Heart Rate Monitored 74 bpm Respiratory Rate 20 Breaths/Min Systolic Blood Pressure 141 mmHg HI Diastolic Blood Pressure 69 mmHg Oxygen Saturation 98 % Oxygen Therapy Mode Room air10/22/2016 15:00 EDT Temperature Source Oral Temperature Mode Fahrenheit Temperature, Fahrenheit 99 Deg F Clinical Temperature, C 37.2 Deg C Heart Rate Monitored 75 bpm Respiratory Rate 22 Breaths/Min HI Systolic Blood Pressure 147 mmHg HI Diastolic Blood Pressure 80 mmHg Mean Arterial Pressure (MAP)-[facility] 9910/22/2016 8:54 EDT Oxygen Therapy Mode Room air10/22/2016 8:00 EDT Respiratory Rate 20 Breaths/Min Oxygen Saturation 96 %10/22/2016 4:14 EDT Temperature Source Oral Temperature Mode Fahrenheit Temperature, Fahrenheit 98.9 Deg F Clinical Temperature, C 37.2 Deg C Heart Rate Monitored 83 bpm Systolic Blood Pressure 147 mmHg HI Diastolic Blood Pressure 97 mmHg HI Mean Arterial Pressure (MAP)-[facility] 11210/22/2016 0:40 EDT Temperature Source Oral Temperature Mode Fahrenheit Temperature, Fahrenheit 99.1 Deg F Clinical Temperature, C 37.3 Deg C Heart Rate Monitored 73 bpm Systolic Blood Pressure 139 mmHg Diastolic Blood Pressure 51 mmHg LOW [facility],Vitals Signs (last 24 hrs) Last Charted Minimum MaximumTemp 99.1 (OCTOBER 23 11:37)98.4 (OCTOBER 23 05:49)99 (OCTOBER 22 15:00)Mon HR 75 (OCTOBER 23 11:37)74 (OCTOBER 22 20:57)76 (OCTOBER 23 05:49)Resp Rate 18 (OCTOBER 23 11:37)16 (OCTOBER 23 03:02)H 22 (OCTOBER 22 15:00)SBP H 158 (OCTOBER 23 11:37)H 141 (OCTOBER 22 20:57)H 158 (OCTOBER 23 11:37)DBP 81 (OCTOBER 23 11:37)69 (OCTOBER 22 20:57)89 (OCTOBER 22 22:48)MAP 130 (OCTOBER 23 11:37)99 (OCTOBER 22 15:00)130 (OCTOBER 23 11:37)SpO2 96 (OCTOBER 23 09:00)96 (OCTOBER 23 09:00)98 (OCTOBER 22 20:57), Measurements from flowsheet : Measurements10/23/2016 5:15 EDT Height Entry Format [place] Height/Length, ETHIOPIAN (ft) 5 ft Height/Length ETHIOPIAN 0.05 Inch CLINICALHEIGHT 152.53 cm Routine Weight Source Bed scale Routine Weight Entry Format [place] Routine Weight, Pounds 170 lb Routine Weight Calculation 77.27 kg Body Mass Index (BMI), Routine 33.21 kg/m2 Body Surface Area (BSA), Routine 1.74 m210/22/2016 5:56 EDT Height Entry Format [place] Height/Length, ETHIOPIAN (ft) 5 ft Height/Length ETHIOPIAN 0.05 Inch CLINICALHEIGHT 152.53 cm Routine Weight Source Bed scale Routine Weight Entry Format [place] Routine Weight, Pounds 177 lb Routine Weight Calculation 80.45 kg Body Mass Index (BMI), Routine 34.58 kg/m2 Body Surface Area (BSA), Routine 1.77 q0Qbjpfqs: Alert and oriented, No acute distress.Eye: Pupils are equal, round and reactive to light, Extraocular movements are intact, Normal conjunctiva.HENT: Normocephalic, No pharyngeal erythema.Neck: Supple, Non-tender, No lymphadenopathy.Respiratory: Lungs are clear to auscultation, Breath sounds are equal, No chest wall tenderness.Cardiovascular: Normal rate, Regular rhythm, No murmur, Good pulses equal in all extremities.Gastrointestinal: Soft, Non-tender, Non-distended, Normal bowel sounds.Genitourinary: No costovertebral angle tenderness.Musculoskeletal: Normal range of motion, No tenderness.Integumentary: Warm, No rash.Neurologic: Alert, Oriented, No focal deficits.Psychiatric: Cooperative, Appropriate mood & affect. General: Alert and oriented, No acute distress. Eye: Pupils are equal, round and reactive to light, Extraocular movements are intact, Normal conjunctiva. HENT: Normocephalic, No pharyngeal erythema. Neck: Supple, Non-tender, No lymphadenopathy. Respiratory: Lungs are clear to auscultation, Breath sounds are equal, No chest wall tenderness. Cardiovascular: Normal rate, Regular rhythm, No murmur, Good pulses equal in all extremities. Gastrointestinal: Soft, Non-tender, Non-distended, Normal bowel sounds. Genitourinary: No costovertebral angle tenderness. Musculoskeletal: Normal range of motion, No tenderness. Integumentary: Warm, No rash. Neurologic: Alert, Oriented, No focal deficits. Psychiatric: Cooperative, Appropriate mood & affect. Review / Management OCTOBER 23 03:52 H 149 | 112 | H 23 / 104 3.5 | 23 | 0.80 \\ OCTOBER 23 03:52 \\ L 10.5 / 9.3 168 / L 32.3 \\ Radiology Results (Last 48 hours)[id number] -- 10/21/2016 16:44CR Small Bowel Series (10/22/2016 13:10) Result: SMALL BOWEL FOLLOW-THROUGHHISTORY: Obstruction.PROCEDURE: The patient ingested Gastrografin. Spot and overhead filmswere obtained.FINDINGS: The personal lines insurance advisor film shows borderline dilated loops of bowel. Thetransit time to the colon is normal. There is no mechanical obstruction.Contrast is diluted in the distal small bowel limiting assessment offold pattern.Fluoroscopy exposure time: 1.2 minutes.IMPRESSION: Borderline dilated loops of small bowel without completeobstruction.Images reviewed, interpreted, and dictated by Dr. Denise Wu MD.Transcribed by Dionne Potts PA-C.I have personally viewed, interpreted and dictated the examination. Ihave read and agree with the above final transcribed report.Results review:Labs (Last four charted values)WBC 9.3(OCTOBER 23)7.3(OCTOBER 22)8.6(OCTOBER 21)HB L 10.5(OCTOBER 23)L 10.5(OCTOBER 22)11.8(OCTOBER 21)HCT L 32.3(OCTOBER 23)L 31.9(OCTOBER 22)35.7(OCTOBER 21)Plt 168(OCTOBER 23)L 144(OCTOBER 22)196(OCTOBER 21)Na H 149(OCTOBER 23)146(OCTOBER 22)H 147(OCTOBER 21)K 3.5(OCTOBER 23)4.0(OCTOBER 22)4.3(OCTOBER 21)Cl 112(OCTOBER 23)112(OCTOBER 22)107(OCTOBER 21)CO2 23(OCTOBER 23)25(OCTOBER 22)26(OCTOBER 21)BUN H 23(OCTOBER 23)H 29(OCTOBER 22)H 36(OCTOBER 21)Cr 0.80(OCTOBER 23)0.90(OCTOBER 22)H 1.20(OCTOBER 21)Glu R 104(OCTOBER 23)H 114(OCTOBER 22)103(OCTOBER 21)Ca 8.7(OCTOBER 23)L 8.4(OCTOBER 22)8.8(OCTOBER 21)PT H 11.4(OCTOBER 22)INR 1.1(OCTOBER 22)AST 14(OCTOBER 22)23(OCTOBER 21)ALT 18(OCTOBER 22)30(OCTOBER 21)ALK P 124(OCTOBER 22)118(OCTOBER 21)T Bili 0.8(OCTOBER 22)0.5(OCTOBER 21)PTN 6.4(OCTOBER 22)6.4(OCTOBER 21)ALB L 3.1(OCTOBER 22)3.5(OCTOBER 21). HB L 10.5(OCTOBER 23)L 10.5(OCTOBER 22)11.8(OCTOBER 21) HCT L 32.3(OCTOBER 23)L 31.9(OCTOBER 22)35.7(OCTOBER 21) Plt 168(OCTOBER 23)L 144(OCTOBER 22)196(OCTOBER 21) Na H 149(OCTOBER 23)146(OCTOBER 22)H 147(OCTOBER 21) K 3.5(OCTOBER 23)4.0(OCTOBER 22)4.3(OCTOBER 21) Cl 112(OCTOBER 23)112(OCTOBER 22)107(OCTOBER 21) CO2 23(OCTOBER 23)25(OCTOBER 22)26(OCTOBER 21) BUN H 23(OCTOBER 23)H 29(OCTOBER 22)H 36(OCTOBER 21) Cr 0.80(OCTOBER 23)0.90(OCTOBER 22)H 1.20(OCTOBER 21) Glu R 104(OCTOBER 23)H 114(OCTOBER 22)103(OCTOBER 21) Ca 8.7(OCTOBER 23)L 8.4(OCTOBER 22)8.8(OCTOBER 21) PT H 11.4(OCTOBER 22) INR 1.1(OCTOBER 22) AST 14(OCTOBER 22)23(OCTOBER 21) ALT 18(OCTOBER 22)30(OCTOBER 21) ALK P 124(OCTOBER 22)118(OCTOBER 21) T Bili 0.8(OCTOBER 22)0.5(OCTOBER 21) PTN 6.4(OCTOBER 22)6.4(OCTOBER 21) ALB L 3.1(OCTOBER 22)3.5(OCTOBER 21) . Impression and PlanSmall bowel obstructionHistory of CHurg Austyn with h/o Colon dfxedtbad-R-hsap, opiates, diabetes-General surgery Dr. Nolen following-clear liquid, G-tube to suction, IV fluidsmonitor electrolytesscopolamine patchHypernatremiadiscontinue 0.9 normal salineStart on d5 0.45 NS at 100 cc hr and adjust rate as diet is toleratedmonitorAtrial fibrillation-resumed eliquis- cardiology followingEcho to assess cardiac status pendingDiabetes mellitus type 2 with neuropathy on long-term insulin 6.6 o9o-Nlkdk scale insulin every 6 hours-monitor as e keep her on R6Ipsemu dependency. Fentanyl patch 50 g every 3 days-Diabetic neuropathy Neurontin 800 mg 4 times a day when necessary, baclofen 5 mg 3 times a day when necessaryBenign essential Hypertension. Hold lisinopril HCTZ olmesartan for small bowel obstruction. 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 Fentanyl patch 50 g every 3 days -Diabetic neuropathy Neurontin 800 mg 4 times a day when necessary, baclofen 5 mg 3 times a day when necessary Benign essential Hypertension. Hold lisinopril HCTZ olmesartan for small bowel obstruction. hydralazine prn Chronic kidney disease diabetic nephropathy TIme spent31 min Extracted from: Title: [place] Author: BLANKA, Date: 10/23/16 [facility] APRN daily progress note Subjective NAD Health Status Problem list: Active Problems (22) Anxiety Asthma Atrial fibrillation Back pain Diabetes Dizziness Fatigue GERD (gastroesophageal reflux disease) HTN (hypertension) hx MRSA hx PPM Hyperlipidemia Hyperlipidemia Hypertension Migraines Migraines Osteoarthritis Palpitations Paroxysmal a-fib PUD (peptic ulcer disease) SSS (sick sinus syndrome) Syncope ObjectiveIntake and Output 24 hour intake: Total 100 ml 24 hour output: Total 250 mlVS/MeasurementsVitals Signs (last 24 hrs) Last Charted Minimum MaximumTemp 98.4 (OCTOBER 23 05:49)98.4 (OCTOBER 23 05:49)99 (OCTOBER 22 15:00)Mon HR 76 (OCTOBER 23 05:49)74 (OCTOBER 22 20:57)76 (OCTOBER 23 05:49)Resp Rate 20 (OCTOBER 23 05:49)16 (OCTOBER 23 03:02)H 22 (OCTOBER 22 15:00)SBP H 148 (OCTOBER 23 05:49)H 141 (OCTOBER 22 20:57)H 148 (OCTOBER 23:49)DBP 77 (OCTOBER 23 05:49)69 (OCTOBER 22 20:57)89 (OCTOBER 22 22:48)MAP 99 (OCTOBER 22 15:00)99 (OCTOBER 22 15:00)99 (OCTOBER 22 15:00)SpO2 98 (OCTOBER 22 20:57)98 (OCTOBER 22 20:57)98 (OCTOBER 22 20:57)General: Alert and oriented, No acute distress.Eye: Pupils are equal, round and reactive to light.HENT: Normocephalic.Neck: Supple, Non-tender.Respiratory: Respirations are non-labored, Breath sounds are equal, Symmetrical chest wall expansion.Cardiovascular: Normal rate, Regular rhythm, No edema.Gastrointestinal: Soft.Genitourinary: No costovertebral angle tenderness.Musculoskeletal: Normal range of motion.Integumentary: Warm, Dry, Intact.Neurologic: Alert, Oriented, No focal deficits.Psychiatric: Cooperative, Appropriate mood & affect. Cardiovascular: Normal rate, Regular rhythm, No edema. Gastrointestinal: Soft. Genitourinary: No costovertebral angle tenderness. Musculoskeletal: Normal range of motion. Integumentary: Warm, Dry, Intact. Neurologic: Alert, Oriented, No focal deficits. Psychiatric: Cooperative, Appropriate mood & affect. Results ReviewTelemetryAfib OCTOBER 23 03:52 H 149 | 112 | H 23 / 104 3.5 | 23 | 0.80 \\ OCTOBER 23 03:52 \\ L 10.5 / 9.3 168 / L 32.3 \\Cardiac Markers (Current Encounter/Past 24 Hours)ProBNP 2094 pg/mL IN 10/23/2016 06:30 Radiology Results (Last 48 hours)[id number] -- 10/21/2016 16:44CR Small Bowel Series (10/22/2016 13:10) Result: SMALL BOWEL FOLLOW-THROUGHHISTORY: Obstruction.PROCEDURE: The patient ingested Gastrografin. Spot and overhead filmswere obtained.FINDINGS: The personal lines insurance advisor film shows borderline dilated loops of bowel. Thetransit time to the colon is normal. There is no mechanical obstruction.Contrast is diluted in the distal small bowel limiting assessment offold pattern.Fluoroscopy exposure time: 1.2 minutes.IMPRESSION: Borderline dilated loops of small bowel without completeobstruction.Images reviewed, interpreted, and dictated by Dr. Denise Wu MD.Transcribed by Dionne Potts PA-C.Tripp have personally viewed, interpreted and dictated the examination. Ihave read and agree with the above final transcribed report. Impression: Normal sized left ventricle. Mild, concentric, left ventricular hypertrophy. Normal left ventricular systolic function with normal systolic strain pattern. Measured ejection fraction 54%. Abnormal diastolic function. No significant valvular heart disease.Measurements Summary: LVEDd: 5.19 cm LVESd: 3.72 cm IVSEd: 1.19 cm AO Root:3.49 cm LVPWd: 1.21 cm [id number] -- 10/21/2016 16:44 CR Small Bowel Series (10/22/2016 13:10) Result: SMALL BOWEL FOLLOW-THROUGHHISTORY: Obstruction.PROCEDURE: The patient ingested Gastrografin. Spot and overhead filmswere obtained.FINDINGS: The personal lines insurance advisor film shows borderline dilated loops of bowel. Thetransit time to the colon is normal. There is no mechanical obstruction.Contrast is diluted in the distal small bowel limiting assessment offold pattern.Fluoroscopy exposure time: 1.2 mi nutes.IMPRESSION: Borderline dilated loops of small bowel without completeobstruction.Images reviewed, interpreted, and dictated by Dr. Denise Wu MD.Transcribed by Dionne Potts PA-C.I have p ersonally viewed, interpreted and dictated the examination. Ihave read and agree with the above final transcribed report. Impression: Normal sized left ventricle. Mild, concentric, left ventricular hypertrophy. Normal left ventricular systolic function with normal systolic strain pattern. Measured ejection fraction 54%. Abnormal diastolic function. No significant valvular heart disease. Measurements Summary: LVEDd: 5.19 cm LVESd: 3.72 cm IVSEd: 1.19 cm AO Root:3.49 cm LVPWd: 1.21 cm Impression and PlanIMPRESSION:Paroxysmal AFib w/ hx of AV node ablation - now PPM dependent. On EliquisSmall bowel obstruction; surgical intervention pendingChurg-Noemi Syndrome w/ hx of colon resectionProbable Colleen Gehrig's DiseaseHx of cerebral aneurysm; location unknown. Followed by NeurologyPLAN:10/23/16Continue CV POC as currently formulatedRestart eliquis when ok with surgeryNo indication for further cardiac workup at this time.Follow up with primary public speaking instructor in 4 weeksWill sign off10/22/16Moderate cardiac risk for bowel surgery. ECHO ordered to assess EF as pre-op evaluation. Plan to restart Eliquis once cleared by GI/surgery.10/21/16OK to hold Eliquis due to possible laparotomy. Resume when appropriate and cleared by GI/surgery. 10/23/16 Continue CV POC as currently formulated Restart eliquis when ok with surgery No indication for further cardiac workup at this time. Follow up with primary public speaking instructor in 4 weeks Will sign off 10/22/16 Moderate cardiac risk for bowel surgery. ECHO ordered to assess EF as pre-op evaluation. Plan to restart Eliquis once cleared by GI/surgery. 10/21/16 OK to hold Eliquis due to possible laparotomy. Resume when appropriate and cleared by GI/surgery. Extracted from: Title: SOAP Note Author: SILAS DOMINGUEZ Date: 10/22/16 Subjective nauseated abd pain no passage of gas Review of Systems Constitutional: No fever, No chills. Eye: Negative. Ear/Nose/Mouth/Throat: Negative. Respiratory: Negative. Cardiovascular: No chest pain. Gastrointestinal: No nausea, No vomiting, No diarrhea. Genitourinary: No dysuria. Hematology/Lymphatics: Negative. Endocrine: Negative. Immunologic: No recurrent fevers. Musculoskeletal: No back pain. Integumentary: No rash. Neurologic: Negative. Psychiatric: Negative. Health StatusAllergies:Allergic Reactions (Selected)Severity Not DocumentedAmitriptyline- No reactions were documented.Aspirin- No reactions were documented.Beta blockers- No reactions were documented.ChlorproMAZINE- No reactions were documented.DULoxetine- No reactions were documented.Ergotamine- No reactions were documented.Prochlorperazine- No reactions were documented.Sulfa drugs- No reactions were documented.Trimethoprim- No reactions were documented.Nonallergic Reactions (Selected)Severity Not DocumentedIodinated radiocontrast dyes- No reactions were documented.,Allergies (1) ActiveReactioniodinated radiocontrast dyesNone DocumentedCurrent medications: (Selected)Inpatient MedicationsOrderedAtivan: 0.5 mg, IV Push, Q4H, PRN: AgitationDuoNeb 0.5 mg-2.5 mg/3 mL inhalation solution: 3 mL, Nebulized Inhalation, Q6H, PRN: Shortness of BreathDuragesic-50: 1 Patch, TransDermal, [id number]: 800 mg, Oral, QID, PRN: PainPhenergan: 12.5 mg, IV Push, Q6H, PRN: Nausea/VomitingProtonix: 40 mg, IV Push, DailySodium Chloride 0.9% 1,000 mL: 125 mL/Hr, IntraVENousTylenol: 650 mg, Oral, Q4H, PRN: Pain (Mild 1-3)Zofran: 4 mg, IV Push, Q4H, PRN: Nauseabaclofen: 10 mg, Oral, TID, PRN: Spasmsbisoprolol: 10 mg, Oral, Dailyinsulin regular sliding scale: Scale B, SubCutaneous, M6Nruabzjchgt: 10 mg, Oral, Dailymorphine: 2 mg, IV Push, Q4H, PRN: Pain (Severe 7-10)scopolamine 1.5 mg transdermal film, extended release: 1 Patch, TransDermal, V7OgoqPhprhqkfcz MedicationsDocumentedALPRAZolam: 0.5 mg, Oral, QID, PRN: as needed for anxiety, 0 Refill(s)Eliquis 5 mg oral tablet: 1 Tab, Oral, BID, 60 Tab, 0 Refill(s)Melatonin 3 mg oral tablet: Tab, Oral, At Bedtime, 0 Refill(s)MiraLax: Gram, Oral, Daily, 0 Refill(s)Neurontin: 800 mg, Oral, QID, 0 Refill(s)NovoLO Units, SubCutaneous, TIDAC, 0 Refill(s)Tylenol 325 mg oral tablet: 2 Tab, Oral, Q4H, PRN: as needed for fever, 0 Refill(s)atorvastatin: 80 mg, Oral, At Bedtime, 0 Refill(s)baclofen 10 mg oral tablet: 1 Tab, Oral, TID, 270 Tab, 0 Refill(s)bisoprolol 10 mg oral tablet: Tab, Oral, Daily, 0 Refill(s)docusate-senna 50 mg-8.6 mg oral tablet: 2 Tab, Oral, Once a day (at bedtime), 30 Tab, 0 Refill(s)famotidine 20 mg oral tablet: 1 Tab, Oral, BID, 180 Tab, 0 Refill(s)fentaNYL 50 mcg/hr transdermal film, extended release: 1 Patch, TransDermal, W61SAca, 0 Refill(s)folic acid: 1 mg, Oral, Daily, 0 Refill(s)hydrOXYzine hydrochloride 10 mg oral tablet: Tab, Oral, QID, PRN: as needed for anxiety, 0 Refill(s)hydroxychloroquine 200 mg oral tablet: Tab, Oral, BID, 0 Refill(s)lisinopril 10 mg oral tablet: Tab, Oral, Daily, 0 Refill(s)oxyCODONE 5 mg oral tablet: Tab, Oral, Q4H, PRN: Pain (Severe 7-10), 0 Refill(s)promethazine: 25 mg, Oral, QID, PRN: as needed for nausea/vomiting, 0 Refill(s),Medications (15) ActiveScheduled: (6)bisoprolol 5 mg tab 10 mg 2 Tab, Oral, DailyfentaNYL 50 mcg/hr 72 hr patch 1 Patch, TransDermal, X71DJijhcufsnw regular 1 unit/0.01 mL inj 3mL Scale B, SubCutaneous, O1Lnrcbomtemz 10 mg tab 10 mg 1 Tab, Oral, Dailypantoprazole 40 mg inj 40 mg, IV Push, Dailyscopolamine 1.5 mg/72 hr patch 1 Patch, TransDermal, P8BbhgJwoslnzypz: (1)NaCl 0.9% 1,000 mL 1,000 mL, IntraVENous, 125 mL/HrPRN: (8)acetaminophen 325 mg tab 650 mg 2 Tab, Oral, J0Gykzrnccfk-eflbrwjacyi inh 3 mL 3 mL, Nebulized Inhalation, M0Luolzdgzy 10 mg tab 10 mg 1 Tab, Oral, TIDgabapentin 400 mg cap 800 mg 2 Cap, Oral, QIDLORazepam 2 mg/mL inj 0.5 mg 0.25 mL, IV Push, G6Vwuexirqn 2 mg/1 ml cpjt inj 2 mg 1 mL, IV Push, W8Pebhdhkkhqxg 4 mg/2 mL inj 4 mg 2 mL, IV Push, J1Cukwnnkqruhji 25 mg/1 mL inj 12.5 mg 0.5 mL, IV Push, U0XPoyugne list:MedicalAnxiety / SNOMED CT [id number] / ConfirmedAsthma / SNOMED CT [id number] / ConfirmedAtrial fibrillation / SNOMED CT [id number] / ConfirmedBack pain / SNOMED CT [id number] / ConfirmedDiabetes / SNOMED CT [id number] / ConfirmedGERD (gastroesophageal reflux disease) / SNOMED CT [id number] / ConfirmedHTN (hypertension) / SNOMED CT [id number] / Confirmedhx MRSA / Confirmedhx PPM / ConfirmedHyperlipidemia / SNOMED CT [id number] / ConfirmedMigraines / SNOMED CT [id number] / ConfirmedOsteoarthritis / SNOMED CT [id number] / ConfirmedParoxysmal a-fib / SNOMED CT [id number] / ConfirmedPUD (peptic ulcer disease) / SNOMED CT [id number] / ConfirmedSSS (sick sinus syndrome) / SNOMED CT [id number] / ConfirmedSyncope / SNOMED CT [id number] / ConfirmedResolved: CARSON (renal artery stenosis) / SNOMED CT [id number],Active Problems (22)Anxiety Asthma Atrial fibrillation Back pain Diabetes Dizziness Fatigue GERD (gastroesophageal reflux disease) HTN (hypertension) hx MRSA hx PPM Hyperlipidemia Hyperlipidemia Hypertension Migraines Migraines Osteoarthritis Palpitations Paroxysmal a-fib PUD (peptic ulcer disease) SSS (sick sinus syndrome) Syncope Anxiety / SNOMED CT [id number] / Confirmed Asthma / SNOMED CT [id number] / Confirmed Atrial fibrillation / SNOMED CT [id number] / Confirmed Back pain / SNOMED CT [id number] / Confirmed Diabetes / SNOMED CT [id number] / Confirmed GERD (gastroesophageal reflux disease) / SNOMED CT [id number] / Confirmed HTN (hypertension) / SNOMED CT [id number] / Confirmed hx MRSA / Confirmed hx PPM / Confirmed Hyperlipidemia / SNOMED CT [id number] / Confirmed Migraines / SNOMED CT [id number] / Confirmed Osteoarthritis / SNOMED CT [id number] / Confirmed Paroxysmal a-fib / SNOMED CT [id number] / Confirmed PUD (peptic ulcer disease) / SNOMED CT [id number] / Confirmed SSS (sick sinus syndrome) / SNOMED CT [id number] / Confirmed Syncope / SNOMED CT [id number] / Confirmed Resolved: CARSON (renal artery stenosis) / SNOMED CT [id number], Active Problems (22) Anxiety Asthma Atrial fibrillation Back pain Diabetes Dizziness Fatigue GERD (gastroesophageal reflux disease) HTN (hypertension) hx MRSA hx PPM Hyperlipidemia Hyperlipidemia Hypertension Migraines Migraines Osteoarthritis Palpitations Paroxysmal a-fib PUD (peptic ulcer disease) SSS (sick sinus syndrome) Syncope ObjectiveVS/MeasurementsVital Signs/Vital Measures10/22/2016 20:57 EDT Temperature, Fahrenheit 98.1 Deg F Heart Rate Monitored 74 bpm Respiratory Rate 20 Breaths/Min Systolic Blood Pressure 141 mmHg HI Diastolic Blood Pressure 69 mmHg Oxygen Saturation 98 % Oxygen Therapy Mode Room air10/22/2016 15:00 EDT Temperature Source Oral Temperature Mode Fahrenheit Temperature, Fahrenheit 99 Deg F Clinical Temperature, C 37.2 Deg C Heart Rate Monitored 75 bpm Respiratory Rate 22 Breaths/Min HI Systolic Blood Pressure 147 mmHg HI Diastolic Blood Pressure 80 mmHg Mean Arterial Pressure (MAP)-[facility] 9910/22/2016 8:54 EDT Oxygen Therapy Mode Room air10/22/2016 8:00 EDT Respiratory Rate 20 Breaths/Min Oxygen Saturation 96 %10/22/2016 4:14 EDT Temperature Source Oral Temperature Mode Fahrenheit Temperature, Fahrenheit 98.9 Deg F Clinical Temperature, C 37.2 Deg C Heart Rate Monitored 83 bpm Systolic Blood Pressure 147 mmHg HI Diastolic Blood Pressure 97 mmHg HI Mean Arterial Pressure (MAP)-[facility] 0:40 EDT Temperature Source Oral Temperature Mode Fahrenheit Temperature, Fahrenheit 99.1 Deg F Clinical Temperature, C 37.3 Deg C Heart Rate Monitored 73 bpm Systolic Blood Pressure 139 mmHg Diastolic Blood Pressure 51 mmHg LOW Mean Arterial Pressure (MAP)-[facility] 22:00 EDT Oxygen Saturation 97 % Oxygen Therapy Mode Room air10/21/2016 21:48 EDT Oxygen Therapy Mode Room air10/21/2016 17:18 EDT Temperature Source Oral Temperature Mode Fahrenheit Temperature, Fahrenheit 99.0 Deg F Clinical Temperature, C 37.2 Deg C Heart Rate, Apical 75 bpm Respiratory Rate 20 Breaths/Min Systolic BP, Arterial Line 1 145 mmHg HI Diastolic BP, Arterial Line 1 72 mmHg Mean Arterial Pressure, Line 1 100 mmHg Oxygen Saturation 95 % Oxygen Therapy Mode Room air10/21/2016 17:00 EDT Systolic Blood Pressure 145 mmHg HI Diastolic Blood Pressure 72 mmHg,Vitals Signs (last 24 hrs) Last Charted Minimum MaximumTemp 98.1 (OCTOBER 22 20:57)98.1 (OCTOBER 22 20:57)99.1 (OCTOBER 22 00:40)Mon HR 74 (OCTOBER 22 20:57)73 (OCTOBER 22 00:40)83 (OCTOBER 22 04:14)Resp Rate 20 (OCTOBER 22 20:57)20 (OCTOBER 22 08:00)H 22 (OCTOBER 22 15:00)SBP H 141 (OCTOBER 22 20:57)139 (OCTOBER 22 00:40)H 147 (OCTOBER 22 04:14)DBP 69 (OCTOBER 22 20:57)L 51 (OCTOBER 22 00:40)H 97 (OCTOBER 22 04:14)MAP 99 (OCTOBER 22 15:00)99 (OCTOBER 22 15:00)112 (OCTOBER 22 04:14)SpO2 98 (OCTOBER 22 20:57)96 (OCTOBER 22 08:00)98 (OCTOBER 22 20:57), Measurements from flowsheet : Measurements10/22/2016 5:56 EDT Height Entry Format [place] Height/Length, ETHIOPIAN (ft) 5 ft Height/Length ETHIOPIAN 0.05 Inch CLINICALHEIGHT 152.53 cm Routine Weight Source Bed scale Routine Weight Entry Format Miguel A Routine Weight, Pounds 177 lb Routine Weight Calculation 80.45 kg Body Mass Index (BMI), Routine 34.58 kg/m2 Body Surface Area (BSA), Routine 1.77 m210/21/2016 16:39 EDT Height Entry Format Miguel A Height/Length, ETHIOPIAN (ft) 5 ft Height/Length ETHIOPIAN 0.05 Inch CLINICALHEIGHT 152.53 cm Type of Weight Measurement. [place] Weight, est lb 161 lb Estimated Clinical Dosing Weight 73.18 kg [place] Body Weight 45 kg Weight Source StatedGeneral: Alert and oriented, No acute distress.Eye: Pupils are equal, round and reactive to light, Extraocular movements are intact, Normal conjunctiva.HENT: Normocephalic, No pharyngeal erythema.Neck: Supple, Non-tender, No lymphadenopathy.Respiratory: Lungs are clear to auscultation, Breath sounds are equal, No chest wall tenderness.Cardiovascular: Normal rate, Regular rhythm, No murmur, Good pulses equal in all extremities.Gastrointestinal: Soft, Non-tender, Non-distended, Normal bowel sounds.Genitourinary: No costovertebral angle tenderness.Musculoskeletal: Normal range of motion, No tenderness.Integumentary: Warm, No rash.Neurologic: Alert, Oriented, No focal deficits.Psychiatric: Cooperative, Appropriate mood & affect. Neck: Supple, Non-tender, No lymphadenopathy. Respiratory: Lungs are clear to auscultation, Breath sounds are equal, No chest wall tenderness. Cardiovascular: Normal rate, Regular rhythm, No murmur, Good pulses equal in all extremities. Gastrointestinal: Soft, Non-tender, Non-distended, Normal bowel sounds. Genitourinary: No costovertebral angle tenderness. Musculoskeletal: Normal range of motion, No tenderness. Integumentary: Warm, No rash. Neurologic: Alert, Oriented, No focal deficits. Psychiatric: Cooperative, Appropriate mood & affect. Review / Management OCTOBER 22 06:34 146 | 112 | H 29 / H 114 4.0 | 25 | 0.90 \\ OCTOBER 22 06:34 \\ L 10.5 / 7.3 L 144 / L 31.9 \\ Radiology Results (Last 48 hours)[id number] -- 10/21/2016 16:44CR Small Bowel Series (10/22/2016 13:10) Result: SMALL BOWEL FOLLOW-THROUGHHISTORY: Obstruction.PROCEDURE: The patient ingested Gastrografin. Spot and overhead filmswere obtained.FINDINGS: The personal lines insurance advisor film shows borderline dilated loops of bowel. Thetransit time to the colon is normal. There is no mechanical obstruction.Contrast is diluted in the distal small bowel limiting assessment offold pattern.Fluoroscopy exposure time: 1.2 minutes.IMPRESSION: Borderline dilated loops of small bowel without completeobstruction.Images reviewed, interpreted, and dictated by Dr. Denise Wu MD.Transcribed by Dionne Potts PA-C.I have personally viewed, interpreted and dictated the examination. Ihave read and agree with the above final transcribed report.Results review:Labs (Last four charted values)WBC 7.3(OCTOBER 22)8.6(OCTOBER 21)HB L 10.5(OCTOBER 22)11.8(OCTOBER 21)HCT L 31.9(OCTOBER 22)35.7(OCTOBER 21)Plt L 144(OCTOBER 22)196(OCTOBER 21)Na 146(OCTOBER 22)H 147(OCTOBER 21)K 4.0(OCTOBER 22)4.3(OCTOBER 21)Cl 112(OCTOBER 22)107(OCTOBER 21)CO2 25(OCTOBER 22)26(OCTOBER 21)BUN H 29(OCTOBER 22)H 36(OCTOBER 21)Cr 0.90(OCTOBER 22)H 1.20(OCTOBER 21)Glu R H 114(OCTOBER 22)103(OCTOBER 21)Ca L 8.4(OCTOBER 22)8.8(OCTOBER 21)PT H 11.4(OCTOBER 22)INR 1.1(OCTOBER 22)AST 14(OCTOBER 22)23(OCTOBER 21)ALT 18(OCTOBER 22)30(OCTOBER 21)ALK P 124(OCTOBER 22)118(OCTOBER 21)T Bili 0.8(OCTOBER 22)0.5(OCTOBER 21)PTN 6.4(OCTOBER 22)6.4(OCTOBER 21)ALB L 3.1(OCTOBER 22)3.5(OCTOBER 21). Labs (Last four charted values) WBC 7.3(OCTOBER 22)8.6(OCTOBER 21) HB L 10.5(OCTOBER 22)11.8(OCTOBER 21) HCT L 31.9(OCTOBER 22)35.7(OCTOBER 21) Plt L 144(OCTOBER 22)196(OCTOBER 21) Na 146(OCTOBER 22)H 147(OCTOBER 21) K 4.0(OCTOBER 22)4.3(OCTOBER 21) Cl 112(OCTOBER 22)107(OCTOBER 21) CO2 25(OCTOBER 22)26(OCTOBER 21) BUN H 29(OCTOBER 22)H 36(OCTOBER 21) Cr 0.90(OCTOBER 22)H 1.20(OCTOBER 21) Glu R H 114(OCTOBER 22)103(OCTOBER 21) Ca L 8.4(OCTOBER 22)8.8(OCTOBER 21) PT H 11.4(OCTOBER 22) INR 1.1(OCTOBER 22) AST 14(OCTOBER 22)23(OCTOBER 21) ALT 18(OCTOBER 22)30(OCTOBER 21) ALK P 124(OCTOBER 22)118(OCTOBER 21) T Bili 0.8(OCTOBER 22)0.5(OCTOBER 21) PTN 6.4(OCTOBER 22)6.4(OCTOBER 21) ALB L 3.1(OCTOBER 22)3.5(OCTOBER 21) . Impression and PlanSmall bowel ceyjeaazyvq-G-nvoi, opiates, diabetes-General surgery Dr. Nolen consult-Nothing by mouth, G-tube to suction, IV fluidsmonitor electrolytesscopolamine patch appliedAtrial fibrillation-Hold Eliquis for possible surgery- cardiology-OK to hold Eliquis due to possible laparotomy. 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 Fentanyl patch 50 g every 3 days-Diabetic neuropathy Neurontin 800 mg 4 times a day when necessary, baclofen 5 mg 3 times a day when necessaryHypertension. Hold lisinopril HCTZ olmesartan for small bowel obstructionChronic kidney disease diabetic nephropathyTIme spent35 min Echo to assess cardiac status. 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 Fentanyl patch 50 g every 3 days -Diabetic neuropathy Neurontin 800 mg 4 times a day when necessary, baclofen 5 mg 3 times a day when necessary Hypertension. Hold lisinopril HCTZ olmesartan for small bowel obstruction Chronic kidney disease diabetic nephropathy TIme spent35 min Extracted from: Title: [place] [facility] Author: KLAUDIA MURRY, Date: 10/22/16 [facility] daily progress note Subjective NAD Continues to have abd pain. Denies shortness of breath or chest pain Health StatusCurrent medications: (Selected)Inpatient MedicationsOrderedAtivan: 0.5 mg, IV Push, Q4H, PRN: AgitationDuoNeb 0.5 mg-2.5 mg/3 mL inhalation solution: 3 mL, Nebulized Inhalation, Q6H, PRN: Shortness of BreathNeurontin: 800 mg, Oral, QID, PRN: PainPhenergan: 12.5 mg, IV Push, Q6H, PRN: Nausea/VomitingProtonix: 40 mg, IV Push, DailySodium Chloride 0.9% 1,000 mL: 125 mL/Hr, IntraVENousTylenol: 650 mg, Oral, Q4H, PRN: Pain (Mild 1-3)Zofran: 4 mg, IV Push, Q4H, PRN: Nauseabaclofen: 10 mg, Oral, TID, PRN: Spasmsbisoprolol: 10 mg, Oral, DailyfentaNYL 50 mcg/hr transdermal film, extended release: 1 Patch, TransDermal, D33KXafleijtoq regular sliding scale: Scale B, SubCutaneous, G1Mgydexcumcp: 10 mg, Oral, Dailymorphine: 2 mg, IV Push, Q4H, PRN: Pain (Severe 7-10)Problem list:Active Problems (22)Anxiety Asthma Atrial fibrillation Back pain Diabetes Dizziness Fatigue GERD (gastroesophageal reflux disease) HTN (hypertension) hx MRSA hx PPM Hyperlipidemia Hyperlipidemia Hypertension Migraines Migraines Osteoarthritis Palpitations Paroxysmal a-fib PUD (peptic ulcer disease) SSS (sick sinus syndrome) Syncope morphine: 2 mg, IV Push, Q4H, PRN: Pain (Severe 7-10) Problem list: Active Problems (22) Anxiety Asthma Atrial fibrillation Back pain Diabetes Dizziness Fatigue GERD (gastroesophageal reflux disease) HTN (hypertension) hx MRSA hx PPM Hyperlipidemia Hyperlipidemia Hypertension Migraines Migraines Osteoarthritis Palpitations Paroxysmal a-fib PUD (peptic ulcer disease) SSS (sick sinus syndrome) Syncope ObjectiveIntake and Nmhlvr31 hour intake, 24 hour outputVS/MeasurementsVital Signs/Vital Measures10/22/2016 4:14 EDT Temperature, Fahrenheit 98.9 Deg F Heart Rate Monitored 83 bpm Systolic Blood Pressure 147 mmHg HI Diastolic Blood Pressure 97 mmHg HI Mean Arterial Pressure (MAP)-[facility] 11210/22/2016 0:40 EDT Temperature, Fahrenheit 99.1 Deg F,Vitals Signs (last 24 hrs) Last Charted Minimum MaximumTemp 98.9 (OCTOBER 22 04:14)98.9 (OCTOBER 22 04:14)99.0 (OCTOBER 21 17:18)Apical HR 75 (OCTOBER 21 17:18)75 (OCTOBER 21 17:18)75 (OCTOBER 21:18)Mon HR 83 (OCTOBER 22:14)73 (OCTOBER 22 00:40)83 (OCTOBER 22 04:14)Resp Rate 20 (OCTOBER 21 17:18)20 (OCTOBER 21 17:18)20 (OCTOBER 21 17:18)SBP H 147 (OCTOBER 22 04:14)139 (OCTOBER 22 00:40)H 147 (OCTOBER 22 04:14)DBP H 97 (OCTOBER 22 04:14)L 51 (OCTOBER 22 00:40)H 97 (OCTOBER 22 04:14)MAP 112 (OCTOBER 22:14)100 (OCTOBER 21 17:18)112 (OCTOBER 22:14)SpO2 97 (OCTOBER 21 22:00)95 (OCTOBER 21 17:18)97 (OCTOBER 21 22:00)General: Alert and oriented, No acute distress.Eye: Pupils are equal, round and reactive to light, Extraocular movements are intact.HENT: Normocephalic, Oral mucosa is moist.Neck: Supple, Non-tender, No carotid bruit.Respiratory: Respirations are non-labored, Breath sounds are equal, Symmetrical chest wall expansion.Cardiovascular: Normal rate, Regular rhythm, Good pulses equal in all extremities.Gastrointestinal: Soft, Non-tender, Non-distended, Normal bowel sounds.Musculoskeletal: Normal range of motion.Integumentary: Warm, Dry, Intact.Neurologic: Alert, Oriented, No focal deficits.Psychiatric: Cooperative, Appropriate mood & affect. Gastrointestinal: Soft, Non-tender, Non-distended, Normal bowel sounds. Musculoskeletal: Normal range of motion. Integumentary: Warm, Dry, Intact. Neurologic: Alert, Oriented, No focal deficits. Psychiatric: Cooperative, Appropriate mood & affect. Results Review Telemetry Admission Weight Todays Weight OCTOBER 22 06:34 146 | 112 | H 29 / H 114 4.0 | 25 | 0.90 \\ OCTOBER 22 06:34 \\ L 10.5 / 7.3 L 144 / L 31.9 \\ Cardiac Markers (Current Encounter/Past 24 Hours) No Cardiac Marker Results Found (Past 24 Hours) No Radiology Results Found Impression and PlanIMPRESSION:Paroxysmal AFib w/ hx of AV node ablation - now PPM dependent. On EliquisSmall bowel obstruction; surgical intervention pendingChurg-Noemi Syndrome w/ hx of colon resectionProbable Colleen Gehrig's DiseaseHx of cerebral aneurysm; location unknown. Followed by NeurologyPLAN:10/22/16Moderate cardiac risk for bowel surgery. ECHO ordered to assess EF as pre-op evaluation. Plan to restart Eliquis once cleared by GI/surgery.10/21/16OK to hold Eliquis due to possible laparotomy. Resume when appropriate and cleared by GI/surgery. PLAN: 10/22/16 Moderate cardiac risk for bowel surgery. ECHO ordered to assess EF as pre-op evaluation. Plan to restart Eliquis once cleared by GI/surgery. 10/21/16 OK to hold Eliquis due to possible laparotomy. Resume when appropriate and cleared by GI/surgery. Extracted from: Title: *Progress Note * Author: KASSY, Date: 10/21/16 CHRISTIAN Livingston MD-[facility] Small bowel ojlyaxhdgyj-J-ltqj, opiates, diabetes-General surgery Dr. Nolen consult-Nothing by mouth, G-tube to suction, IV fluidsAtrial fibrillation-Hold Eliquis for possible surgery-[facility] 2 with neuropathy on long-term insulin-Improved with change to tube feeds 22 hours a day-Sided scale insulin every 6 hoursOpiate dependency. Fentanyl patch 50 g every 3 days-Diabetic neuropathy Neurontin 800 mg 4 times a day when necessary, baclofen 5 mg 3 times a day when necessaryHypertension. Hold lisinopril HCTZ olmesartan for small bowel obstructionChronic kidney disease diabetic nephropathyDictation number [id number] qualifying data availableMedications (4) ActiveScheduled: (0)Continuous: (1)NaCl 0.9% 1,000 mL 1,000 mL, IntraVENous, 125 mL/HrPRN: (3)acetaminophen 325 mg tab 650 mg 2 Tab, Oral, [id number]-lbmmnydqmht inh 3 mL 3 mL, Nebulized Inhalation, G5Mvakxuimruam 4 mg/2 mL inj 4 mg 2 mL, IV Push, [id number] Signs (last 24 hrs) Last Charted Minimum MaximumTemp 99.0 (OCTOBER 21:18)99.0 (OCTOBER 21:)99.0 (OCTOBER 21:)Apical HR 75 (OCTOBER 21:)75 (OCTOBER 21:18)75 (OCTOBER 21:)Resp Rate 20 (OCTOBER 21:18)20 (OCTOBER 21:)20 (OCTOBER 21:)SBP H 145 (OCTOBER 21 17:00)H 145 (OCTOBER 21 17:00)H 145 (OCTOBER 21:00)DBP 72 (OCTOBER 21 17:00)72 (OCTOBER 21 17:00)72 (OCTOBER 21 17:00)MAP 100 (OCTOBER 21:18)100 (OCTOBER 21:18)100 (OCTOBER 21:18)SpO2 95 (OCTOBER 21:18)95 (OCTOBER 21:18)95 (OCTOBER 21:) No qualifying data available Medications (4) Active Scheduled: (0) Continuous: (1) NaCl 0.9% 1,000 mL 1,000 mL, IntraVENous, 125 mL/Hr PRN: (3) acetaminophen 325 mg tab 650 mg 2 Tab, Oral, Q4H albuterol-ipratropium inh 3 mL 3 mL, Nebulized Inhalation, Q6H ondansetron 4 mg/2 mL inj 4 mg 2 mL, IV Push, Q4H Vitals Signs (last 24 hrs) Last Charted Minimum Maximum Temp 99.0 (OCTOBER 21:18)99.0 (OCTOBER 21:18)99.0 (OCTOBER 21:18) Apical HR 75 (OCTOBER 21:18)75 (OCTOBER 21:18)75 (OCTOBER 21:18) Resp Rate 20 (OCTOBER 21:18)20 (OCTOBER 21:18)20 (OCTOBER 21:18 ) SBP H 145 (OCTOBER 21 17:00)H 145 (OCTOBER 21:00)H 145 ( OCTOBER 21:00) DBP 72 (OCTOBER 21:00)72 (OCTOBER 21:00)72 (OCTOBER 21: 00) MAP 100 (OCTOBER 21:18)100 (OCTOBER 21:18)100 (OCTOBER 21:18) SpO2 95 (OCTOBER 21:18)95 (OCTOBER 21:18)95 (OCTOBER 21: ) Hospital Discharge Instructions Patient EducationBasic Carbohydrate Counting for Diabetes Blood Glucose Monitoring, Adult Form - Blood Pressure Record Sheet How to Take Your Blood Pressure, Ursp-wj-Tfuo Ileus"
--- OUTSIDE RECORDS SUMMARY | 2016-10-29 14:26 | External Medical Summary Rpt ---
Author Author [facility] Organization [facility] Address Unknown Phone Unavailable Care Team Providers Care Esthetics Instructor Name Role Phone DEANDRA, (REF) PCP [phone] [facility] [id number] Date(s): 10/21/16 - 10/25/16 [facility] [address] [place] [id number]- [phone] Discharge Diagnosis: Ileus Discharge Disposition: IP Self [...] 6:35 AM) (10/24/16 6:08 PM) Height Entry Madison Madison Madison Format (10/24/16 5:29 AM) (10/23/16 5:15 AM) (10/22/16 5:56 AM) Height/Lengt 5 ft 5 ft 5 ft h, [place] (10/24/16 5:29 AM) (10/23/16 5:15 AM) (10/22/16 5:56 AM) (ft) Height/Lengt 0.05 Inch 0.05 Inch 0.05 Inch h [place] (10/24/16 5:29 AM) (10/23/16 5:15 AM) (10/22/16 5:56 AM) CLINICALHEIG 152.53 cm 152.53 cm 152.53 cm HT (10/24/16 5:29 AM) (10/23/16 5:15 AM) (10/22/16 5:56 AM) Weight Bed scale Source (10/21/16 4:39 PM) Weight Entry Madison Format (10/21/16 4:39 PM) Weight 162 lb Albanian lb (10/21/16 4:39 PM) CLINICALWEIG 73.64 kg HT (10/21/16 4:39 PM) Body Surface 1.71 m2 Area (BSA) (10/21/16 4:39 PM) Body Mass 31.7 kg/m2 Index *HI* [19.0-24.0 (10/21/16 4:39 PM) kg/m2] Routine Bed scale Bed scale Bed scale Weight (10/25/16 5:47 AM) (10/24/16 5:29 AM) (10/23/16 5:15 AM) Source Routine Madison Madison Madison Weight Entry (10/25/16 5:47 AM) (10/24/16 5:29 [...] (10/23/16 5:15 AM) (10/22/16 5:56 AM) Routine Randolph Body 45 kg Weight (10/21/16 4:39 PM) [...] 17 Gram, Oral, Every Day, Refills: 0 txdnhlsuscag34 mg, Oral, Four Times A Day, As [...] (10/22/16 6:34 AM) (10/21/16 5:37 PM) x10(3)/uL] Barron % 7.7 % 6.4 % 5.7 % [3.0-9.0 %] (10/23/16 3:52 AM) (10/22/16 6:34 AM) (10/21/16 5:37 PM) Barron # 0.72 K/uL 0.47 K/uL 0.49 K/uL [...] PRN: Shortness of BreathDuragesic-50: 1 Patch, TransDermal, E02GWbqOdwlpga: 5 mg, Oral, BIDMelatonin: 3 mg, Oral, [...] Hypertensioninsulin regular sliding scale: Scale B, SubCutaneous, C1Ljxjhmhbngy: 10 mg, Oral, Dailymagnesium sulfate: 2 Gram, [...] transdermal film, extended release: 1 Patch, TransDermal, R4Iuchncnged phosphate: 15 mMole, 5 mL, 50 mL/Hr, [...] transdermal film, extended release: 1 Patch, TransDermal, L35JLgr, 0 Refill(s)folic acid: 1 mg, Oral, Daily, [...] mcg/hr 72 hr patch 1 Patch, TransDermal, G98OWukneesejd regular 1 unit/0.01 mL inj 3mL Scale B, SubCutaneous, V9Cmaowyqskjo 10 mg tab 10 mg 1 Tab, Oral, Dailypantoprazole EC 40 mg tab 40 mg 1 Tab, Oral, Dailyscopolamine 1.5 mg/72 hr patch 1 Patch, TransDermal, X7EesjIzwollmvvj: (0)PRN: (22)acetaminophen 325 mg tab 650 mg 2 Tab, Oral, O9Tdsbehyxcj-mptrundgesk inh 3 mL 3 mL, Nebulized Inhalation, E2Gjwunylxi 10 mg tab 10 mg 1 Tab, Oral, TIDcalcium gluconate 1 Gram 10 mL, IV Piggyback, Dailycalcium gluconate 2 Gram 20 mL, IV Piggyback, Dailycalcium gluconate 2 Gram 20 mL, IV Piggyback, Z54Zmqyeiconkz 250 mg/5 mL liq 60 mL 800 mg 16 mL, Oral, QIDhydrALAZINE 20 mg/1 mL inj 10 mg 0.5 mL, IV Push, F5DHZFvkpwoc 0.5 mg tab 0.5 mg 1 Tab, Oral, R2Mkufsnovsy sulfate 2 Gram 50 mL, IV Piggyback, Dailymagnesium sulfate 2 Gram 50 mL, IV Piggyback, F0Biixmnzhzz 1 mg tab 3 mg 3 Tab, Oral, At Bedtimemorphine 2 mg/1 ml cpjt inj 2 mg 1 mL, IV Push, B1Qoqieptyijrs 4 mg/2 mL inj 4 mg 2 mL, IV Push, Y3JpqiPFCAYZ 5 mg tab 5 mg 1 Tab, Oral, G2Xdmwtwytcw chloride 10 mEq 50 mL, IV Piggyback, B6Zlqwnldlbj chloride CR 20 mEq tab 20 mEq 1 Tab, Oral, M2Dscmdqohfn chloride CR 20 mEq tab 60 mEq 3 Tab, Oral, F7Csndygqxtnodo 25 mg tab 12.5 mg 0.5 Tab, Oral, D0Iyvdravorpspz 25 mg/1 mL inj 12.5 mg 0.5 mL, IV Push, V8Lfrspkb phosphate 15 mMole 5 mL, IV Piggyback, Dailysodium phosphate 15 mMole 5 mL, IV Piggyback, L7CYwwljod list:MedicalAnxiety / SNOMED CT [id number] / ConfirmedAsthma / SNOMED CT [id number]-SK5C-C87CN958I9X3 / ConfirmedAtrial fibrillation / SNOMED CT [id number]-[id number] / ConfirmedBack pain / SNOMED CT [id number] / ConfirmedDiabetes / SNOMED CT [id number] / ConfirmedGERD (gastroesophageal reflux disease) / SNOMED CT [id number]-NC731DQ90EP0 / ConfirmedHTN (hypertension) / SNOMED CT [id number] / Confirmedhx MRSA / Confirmedhx PPM / ConfirmedHyperlipidemia / SNOMED CT [id number]-[id number] / ConfirmedMigraines / SNOMED CT N1B0K70R-[id number] / ConfirmedOsteoarthritis / SNOMED CT R0MAF7VK-018R-3596-Q8I7-7T5XY87P09O9 / ConfirmedParoxysmal a-fib / SNOMED CT [id number] / ConfirmedPUD (peptic ulcer disease) / SNOMED CT [id number] / ConfirmedSSS (sick sinus syndrome) / SNOMED CT [id number]-[id number]-RTL7-G7C6H45O16X1 / ConfirmedSyncope / SNOMED CT [id number] / ConfirmedResolved: CARSON (renal artery stenosis) / SNOMED CT [id number],Active Problems (22)Anxiety Asthma Atrial fibrillation Back pain Diabetes Dizziness Fatigue GERD (gastroesophageal reflux disease) HTN (hypertension) hx MRSA hx PPM Hyperlipidemia Hyperlipidemia Hypertension Migraines Migraines Osteoarthritis Palpitations Paroxysmal a-fib PUD (peptic ulcer disease) SSS (sick sinus syndrome) Syncope Problem list: Medical Anxiety / SNOMED CT [id number] / Confirmed Asthma / SNOMED CT [id number]-FN0W-Z48JK390X6E2 / Confirmed Atrial fibrillation / SNOMED CT O3A5P5YM-[id number]-[id number] / Confirmed Back pain / SNOMED CT [id number] / Confirmed Diabetes / SNOMED CT [id number] / Confirmed GERD (gastroesophageal reflux disease) / SNOMED CT 53DJY0G4-93F8-8563-TR7N- OM076EJ38PP1 / Confirmed HTN (hypertension) / SNOMED CT [id number] / Confirmed hx MRSA / Confirmed hx PPM / Confirmed Hyperlipidemia / SNOMED CT C6T1BA88-[id number]-[id number] / Confirmed Migraines / SNOMED CT [id number] / Confirmed Osteoarthritis / SNOMED CT E6FNI4WH-009H-[id number] / Confirmed Paroxysmal a-fib / SNOMED CT [id number] / Confirmed PUD (peptic ulcer disease) / SNOMED CT [id number] / Confirmed SSS (sick sinus syndrome) / SNOMED CT 128SL34C-YVL2-5G28-MVP0-I8A3W42P53F3 / Confirmed Syncope / SNOMED CT Q5036E5U-[id number] / Confirmed Resolved: CARSON (renal artery stenosis) / SNOMED CT [id number]-[id number]- [id number], Active Problems (22) Anxiety Asthma Atrial fibrillation [...] Blood Pressure 72 mmHg Mean Arterial Pressure (MAP)-[facility] 9210/24/2016 6:30 EDT Temperature Source Oral Temperature [...] Blood Pressure 68 mmHg Mean Arterial Pressure (MAP)-[facility] 8110/24/2016 0:12 EDT Temperature Source Oral Temperature [...] Blood Pressure 87 mmHg Mean Arterial Pressure (MAP)-[facility] 115 Oxygen Therapy Mode Room air10/23/2016 16:03 EDT Temperature Source Oral Temperature Mode Fahrenheit Temperature, Fahrenheit 98.6 Deg F Clinical Temperature, C 37 Deg C Heart Rate Monitored 76 bpm Respiratory Rate 18 Breaths/Min Systolic Blood Pressure 158 mmHg HI Diastolic Blood Pressure 87 mmHg Mean Arterial Pressure (MAP)-[facility] 12110/23/2016 11:37 EDT Temperature Source Oral Temperature Mode Fahrenheit Temperature, Fahrenheit 99.1 Deg F Clinical Temperature, C 37.3 Deg C Heart Rate Monitored 75 bpm Respiratory Rate 18 Breaths/Min Systolic Blood Pressure 158 mmHg HI Diastolic Blood Pressure 81 mmHg Mean Arterial Pressure (MAP)-[facility] 13010/23/2016 11:20 EDT Oxygen Therapy Mode Room [...] : Measurements10/24/2016 5:29 EDT Height Entry Format Madison Height/Length, [place] (ft) 5 ft Height/Length [place] 0.05 Inch CLINICALHEIGHT 152.53 cm Routine Weight Source Bed scale Routine Weight Entry Format Madison Routine Weight, Pounds 162 lb Routine Weight Calculation 73.64 kg Body Mass Index (BMI), Routine 31.65 kg/m2 Body Surface Area (BSA), Routine 1.71 m210/23/2016 5:15 EDT Height Entry Format Madison Height/Length, [place] (ft) 5 ft Height/Length [place] 0.05 Inch CLINICALHEIGHT 152.53 cm Routine Weight Source Bed scale Routine Weight Entry Format Madison Routine Weight, Pounds 170 lb Routine Weight Calculation 77.27 kg Body Mass Index (BMI), Routine 33.21 kg/m2 Body Surface Area (BSA), Routine 1.74 v7Guutaes: Alert and oriented, No acute distress.Eye: Pupils [...] obstructionHistory of CHurg [place] with h/o Colon elkjbsdnk-T-gpic, opiates, diabetes-General surgery Dr. Nolen following-clear liquid, G-tube to suction, IV fluidsmonitor electrolytesscopolamine patchenema until clear. will advance diet eventually and hoping to send herHypernatremiaDiscontinue d5 0.45 NS at 100 cc hrmonitorHypokalemiaReplacement protocolmonitorAtrial fibrillation-Continue eliquis- cardiology signed offEcho reviewed. 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 Fentanyl [...] PRN: Shortness of BreathDuragesic-50: 1 Patch, TransDermal, X72KSkdGbfigeu: 5 mg, Oral, BIDNeurontin: 800 mg, Oral, [...] Dailyinsulin regular sliding scale: Scale B, SubCutaneous, G7Vaaoeufktcb: 10 mg, Oral, Dailymorphine: 2 mg, IV Push, Q4H, PRN: Pain (Severe 7-10)oxyCODONE: 5 mg, Oral, Q4H, PRN: Pain (Moderate 4-6)scopolamine 1.5 mg transdermal film, extended release: 1 Patch, TransDermal, R2TbivLbkqfjucxw MedicationsDocumentedALPRAZolam: 0.5 mg, Oral, QID, PRN: as [...] transdermal film, extended release: 1 Patch, TransDermal, B33ZSwr, 0 Refill(s)folic acid: 1 mg, Oral, Daily, [...] mcg/hr 72 hr patch 1 Patch, TransDermal, E33AGzytqrdsuo regular 1 unit/0.01 mL inj 3mL Scale B, SubCutaneous, X0Zchvnfnvrat 10 mg tab 10 mg 1 Tab, Oral, Dailypantoprazole 40 mg inj 40 mg, IV Push, Dailyscopolamine 1.5 mg/72 hr patch 1 Patch, TransDermal, J6UtsuBrhpyxylyw: (1)NaCl 0.9% 1,000 mL 1,000 mL, IntraVENous, 125 mL/HrPRN: (10)acetaminophen 325 mg tab 650 mg 2 Tab, Oral, Z6Ghogutywzi-xjehorpmysz inh 3 mL 3 mL, Nebulized Inhalation, U8Vqwzbhktl 10 mg tab 10 mg 1 Tab, Oral, TIDgabapentin 250 mg/5 mL liq 60 mL 800 mg 16 mL, Oral, QIDLORazepam 2 mg/mL inj 0.5 mg 0.25 mL, IV Push, M4Adflshkas 2 mg/1 ml cpjt inj 2 mg 1 mL, IV Push, B5Yyxkyjakargx 4 mg/2 mL inj 4 mg 2 mL, IV Push, F7DfmtFUEUPH 5 mg tab 5 mg 1 Tab, Oral, A8Vksyqqoqthudw 25 mg tab 12.5 mg 0.5 Tab, Oral, Q1Gkzbeqzhgbkdt 25 mg/1 mL inj 12.5 mg 0.5 mL, IV Push, O7CFajmmav list:MedicalAnxiety / SNOMED CT [id number] / ConfirmedAsthma / SNOMED CT [id number]-JX5M-[id number] / ConfirmedAtrial fibrillation / SNOMED CT [id number] / ConfirmedBack pain / SNOMED CT [id number] / ConfirmedDiabetes / SNOMED CT [id number] / ConfirmedGERD (gastroesophageal reflux disease) / SNOMED CT [id number]-LA140IA06BX0 / ConfirmedHTN (hypertension) / SNOMED CT [id number] / Confirmedhx MRSA / Confirmedhx PPM / ConfirmedHyperlipidemia / SNOMED CT P2S6QX82-[id number] / ConfirmedMigraines / SNOMED CT [id number] / ConfirmedOsteoarthritis / SNOMED CT W1SEL5TR-876K-5794-E9O9-7H8CD90S99O1 / ConfirmedParoxysmal a-fib / SNOMED CT [id number] / ConfirmedPUD (peptic ulcer disease) / SNOMED CT [id number] / ConfirmedSSS (sick sinus syndrome) / SNOMED CT 641VI93M-[id number]-RCG2-W8J6Q77W24A0 / ConfirmedSyncope / SNOMED CT [id number] / ConfirmedResolved: CARSON (renal artery stenosis) / SNOMED CT [id number],Active Problems (22)Anxiety Asthma Atrial fibrillation Back pain Diabetes Dizziness Fatigue GERD (gastroesophageal reflux disease) HTN (hypertension) hx MRSA hx PPM Hyperlipidemia Hyperlipidemia Hypertension Migraines Migraines Osteoarthritis Palpitations Paroxysmal a-fib PUD (peptic ulcer disease) SSS (sick sinus syndrome) Syncope Problem list: Medical Anxiety / SNOMED CT [id number] / Confirmed Asthma / SNOMED CT [id number]-YJ6N-U00JQ821G4D3 / Confirmed Atrial fibrillation / SNOMED CT L5O9O1BI-932N-[id number] / Confirmed Back pain / SNOMED CT 005429FR-[id number] / Confirmed Diabetes / SNOMED CT [id number] / Confirmed GERD (gastroesophageal reflux disease) / SNOMED CT 19NOJ3M5-28O7-7877-MT2Q- TI028FD97AB7 / Confirmed HTN (hypertension) / SNOMED CT 2267UF5L-[id number] / Confirmed hx MRSA / Confirmed hx PPM / Confirmed Hyperlipidemia / SNOMED CT L7D1DL28-[id number] / Confirmed Migraines / SNOMED CT N2U8P59V-[id number] / Confirmed Osteoarthritis / SNOMED CT O3MBW8EH-[id number] / Confirmed Paroxysmal a-fib / SNOMED CT 8023C81Z-75YY-[id number] / Confirmed PUD (peptic ulcer disease) / SNOMED CT [id number] / Confirmed SSS (sick sinus syndrome) / SNOMED CT 926RS47L-[id number]-RKZ4-B4J3P19G88T2 / Confirmed Syncope / SNOMED CT [id number] / Confirmed Resolved: CARSON (renal artery stenosis) / SNOMED CT [id number]- [id number], Active Problems (22) Anxiety Asthma Atrial fibrillation [...] Blood Pressure 81 mmHg Mean Arterial Pressure (MAP)-[facility] 13010/23/2016 11:20 EDT Oxygen Therapy Mode Room [...] Blood Pressure 80 mmHg Mean Arterial Pressure (MAP)-[facility] 9910/22/2016 8:54 EDT Oxygen Therapy Mode Room air10/22/2016 8:00 EDT Respiratory Rate 20 Breaths/Min Oxygen Saturation 96 %10/22/2016 4:14 EDT Temperature Source Oral Temperature Mode Fahrenheit Temperature, Fahrenheit 98.9 Deg F Clinical Temperature, C 37.2 Deg C Heart Rate Monitored 83 bpm Systolic Blood Pressure 147 mmHg HI Diastolic Blood Pressure 97 mmHg HI Mean Arterial Pressure (MAP)-[facility] 11210/22/2016 0:40 EDT Temperature Source Oral Temperature Mode Fahrenheit Temperature, Fahrenheit 99.1 Deg F Clinical Temperature, C 37.3 Deg C Heart Rate Monitored 73 bpm Systolic Blood Pressure 139 mmHg Diastolic Blood Pressure 51 mmHg LOW [facility],Vitals Signs (last 24 hrs) Last Charted [...] : Measurements10/23/2016 5:15 EDT Height Entry Format [place] Height/Length, [place] (ft) 5 ft Height/Length [place] 0.05 Inch CLINICALHEIGHT 152.53 cm Routine Weight Source Bed scale Routine Weight Entry Format [place] Routine Weight, Pounds 170 lb Routine Weight Calculation 77.27 kg Body Mass Index (BMI), Routine 33.21 kg/m2 Body Surface Area (BSA), Routine 1.74 m210/22/2016 5:56 EDT Height Entry Format [place] Height/Length, [place] (ft) 5 ft Height/Length [place] 0.05 Inch CLINICALHEIGHT 152.53 cm Routine Weight Source Bed scale Routine Weight Entry Format [place] Routine Weight, Pounds 177 lb Routine Weight Calculation 80.45 kg Body Mass Index (BMI), Routine 34.58 kg/m2 Body Surface Area (BSA), Routine 1.77 i7Otwtros: Alert and oriented, No acute distress.Eye: Pupils [...] L 32.3 \\ Radiology Results (Last 48 hours)[id number] -- 10/21/2016 16:44CR Small Bowel Series (10/22/2016 13:10) Result: SMALL BOWEL FOLLOW-THROUGHHISTORY: Obstruction.PROCEDURE: The patient ingested Gastrografin. Spot and overhead filmswere obtained.FINDINGS: The shake maker film shows borderline dilated loops of bowel. [...] obstructionHistory of CHurg [place]yn with h/o Colon lgtjuiotf-E-szxj, opiates, diabetes-General surgery Dr. Nolen following-clear liquid, G-tube to suction, IV fluidsmonitor electrolytesscopolamine patchHypernatremiadiscontinue 0.9 normal salineStart on d5 0.45 NS at 100 cc hr and adjust rate as diet is toleratedmonitorAtrial fibrillation-resumed eliquis- cardiology followingEcho to assess cardiac status pendingDiabetes mellitus type 2 with neuropathy on long-term insulin 6.6 o6r-Plavl scale insulin every 6 hours-monitor as e keep her on I1Tpkxbi dependency. Fentanyl patch 50 g every 3 [...] Markers (Current Encounter/Past 24 Hours)ProBNP 2094 pg/mL TX 10/23/2016 06:30 Radiology Results (Last 48 hours)[id number] -- 10/21/2016 16:44CR Small Bowel Series (10/22/2016 13:10) Result: SMALL BOWEL FOLLOW-THROUGHHISTORY: Obstruction.PROCEDURE: The patient ingested Gastrografin. Spot and overhead filmswere obtained.FINDINGS: The shake maker film shows borderline dilated loops of bowel. [...] cm AO Root:3.49 cm LVPWd: 1.21 cm [id number] -- 10/21/2016 16:44 CR Small Bowel Series (10/22/2016 13:10) Result: SMALL BOWEL FOLLOW-THROUGHHISTORY: Obstruction.PROCEDURE: The patient ingested Gastrografin. Spot and overhead filmswere obtained.FINDINGS: The shake maker film shows borderline dilated loops of bowel. [...] workup at this time.Follow up with primary trace clerk in 4 weeksWill sign off10/22/16Moderate cardiac risk [...] at this time. Follow up with primary trace clerk in 4 weeks Will sign off 10/22/16 [...] PRN: Shortness of BreathDuragesic-50: 1 Patch, TransDermal, G23AMkaKgcsshwrm: 800 mg, Oral, QID, PRN: PainPhenergan: 12.5 mg, IV Push, Q6H, PRN: Nausea/VomitingProtonix: 40 mg, IV Push, DailySodium Chloride 0.9% 1,000 mL: 125 mL/Hr, IntraVENousTylenol: 650 mg, Oral, Q4H, PRN: Pain (Mild 1-3)Zofran: 4 mg, IV Push, Q4H, PRN: Nauseabaclofen: 10 mg, Oral, TID, PRN: Spasmsbisoprolol: 10 mg, Oral, Dailyinsulin regular sliding scale: Scale B, SubCutaneous, R6Hemtszkjrvt: 10 mg, Oral, Dailymorphine: 2 mg, IV Push, Q4H, PRN: Pain (Severe 7-10)scopolamine 1.5 mg transdermal film, extended release: 1 Patch, TransDermal, X0XzvoTqitksfmjs MedicationsDocumentedALPRAZolam: 0.5 mg, Oral, QID, PRN: as [...] transdermal film, extended release: 1 Patch, TransDermal, G73FOke, 0 Refill(s)folic acid: 1 mg, Oral, Daily, [...] mcg/hr 72 hr patch 1 Patch, TransDermal, D97DSwopkflxna regular 1 unit/0.01 mL inj 3mL Scale B, SubCutaneous, V9Jttcndvotsp 10 mg tab 10 mg 1 Tab, Oral, Dailypantoprazole 40 mg inj 40 mg, IV Push, Dailyscopolamine 1.5 mg/72 hr patch 1 Patch, TransDermal, G9SikiFqvrfepfuk: (1)NaCl 0.9% 1,000 mL 1,000 mL, IntraVENous, 125 mL/HrPRN: (8)acetaminophen 325 mg tab 650 mg 2 Tab, Oral, N4Glcdwqzgpo-hutxvsbsvoc inh 3 mL 3 mL, Nebulized Inhalation, Z0Djwpjricw 10 mg tab 10 mg 1 Tab, Oral, TIDgabapentin 400 mg cap 800 mg 2 Cap, Oral, QIDLORazepam 2 mg/mL inj 0.5 mg 0.25 mL, IV Push, D0Isyqrrpmv 2 mg/1 ml cpjt inj 2 mg 1 mL, IV Push, V0Pwwnjopbuqfa 4 mg/2 mL inj 4 mg 2 mL, IV Push, N8Sacyzvxsuqnog 25 mg/1 mL inj 12.5 mg 0.5 mL, IV Push, E1DLcfburg list:MedicalAnxiety / SNOMED CT [id number] / ConfirmedAsthma / SNOMED CT 984S22PW-8YDV-3YZ1-XR0L-K70LT640T1J2 / ConfirmedAtrial fibrillation / SNOMED CT Z9N1C1WK-[id number]-[id number] / ConfirmedBack pain / SNOMED CT [id number] / ConfirmedDiabetes / SNOMED CT [id number] / ConfirmedGERD (gastroesophageal reflux disease) / SNOMED CT 88HLV6J4-93Y6-6901-AK1Y-UY928SF28DJ3 / ConfirmedHTN (hypertension) / SNOMED CT [id number]-[id number] / Confirmedhx MRSA / Confirmedhx PPM / ConfirmedHyperlipidemia / SNOMED CT P2M7QD81-[id number]-[id number] / ConfirmedMigraines / SNOMED CT G4S8K20V-[id number] / ConfirmedOsteoarthritis / SNOMED CT Q3NBB6YK-867X-3853-M0O6-6N7RA23G63C6 / ConfirmedParoxysmal a-fib / SNOMED CT 7661M84T-[id number]-10II-[id number] / ConfirmedPUD (peptic ulcer disease) / SNOMED CT YOCQ0Q32-742S-[id number] / ConfirmedSSS (sick sinus syndrome) / SNOMED CT 705PN69D-EZS9-3H75-DYR9-N5V8T59N91D5 / ConfirmedSyncope / SNOMED CT X2107E3J-[id number] / ConfirmedResolved: CARSON (renal artery stenosis) / SNOMED CT [id number],Active Problems (22)Anxiety Asthma Atrial fibrillation Back pain Diabetes Dizziness Fatigue GERD (gastroesophageal reflux disease) HTN (hypertension) hx MRSA hx PPM Hyperlipidemia Hyperlipidemia Hypertension Migraines Migraines Osteoarthritis Palpitations Paroxysmal a-fib PUD (peptic ulcer disease) SSS (sick sinus syndrome) Syncope Anxiety / SNOMED CT [id number] / Confirmed Asthma / SNOMED CT 779Z69MC-4VJV-3OY5-VA5B-R92EO954D0E3 / Confirmed Atrial fibrillation / SNOMED CT E9U8H5LV-308C-9564-P212-A3TA72M09730 / Confirmed Back pain / SNOMED CT 601693NA-356M-5P95-PK32-HUFFV301NWQV / Confirmed Diabetes / SNOMED CT 3P1591YI-884G-76G6-6Y8Q-116N172U30F7 / Confirmed GERD (gastroesophageal reflux disease) / SNOMED CT 81BPI4C2-88D8-4891-DY4X- WK738ZB68OD8 / Confirmed HTN (hypertension) / SNOMED CT 7926OO9Y-[id number] / Confirmed hx MRSA / Confirmed hx PPM / Confirmed Hyperlipidemia / SNOMED CT L9M4WH93-[id number]-FL64-8F136558FK2Z / Confirmed Migraines / SNOMED CT Q7E9U71J-[id number]-[id number] / Confirmed Osteoarthritis / SNOMED CT M4HES2HY-237U-3093-D4V8-6H1FA30G77F3 / Confirmed Paroxysmal a-fib / SNOMED CT [id number] / Confirmed PUD (peptic ulcer disease) / SNOMED CT [id number] / Confirmed SSS (sick sinus syndrome) / SNOMED CT [id number] / Confirmed Syncope / SNOMED CT [id number] / Confirmed Resolved: CARSON (renal artery stenosis) / SNOMED CT [id number], Active Problems (22) Anxiety Asthma Atrial fibrillation [...] Pressure 97 mmHg HI Mean Arterial Pressure (MAP)-[facility] 0:40 EDT Temperature Source Oral Temperature Mode Fahrenheit Temperature, Fahrenheit 99.1 Deg F Clinical Temperature, C 37.3 Deg C Heart Rate Monitored 73 bpm Systolic Blood Pressure 139 mmHg Diastolic Blood Pressure 51 mmHg LOW Mean Arterial Pressure (MAP)-[facility] 22:00 EDT Oxygen Saturation 97 % Oxygen [...] : Measurements10/22/2016 5:56 EDT Height Entry Format [place] Height/Length, [place] (ft) 5 ft Height/Length [place] 0.05 Inch CLINICALHEIGHT 152.53 cm Routine Weight Source Bed scale Routine Weight Entry Format Miguel A Routine Weight, Pounds 177 lb Routine Weight Calculation 80.45 kg Body Mass Index (BMI), Routine 34.58 kg/m2 Body Surface Area (BSA), Routine 1.77 m210/21/2016 16:39 EDT Height Entry Format Miguel A Height/Length, [place] (ft) 5 ft Height/Length [place] 0.05 Inch CLINICALHEIGHT 152.53 cm Type of Weight Measurement. [place] Weight, est lb 161 lb Estimated Clinical Dosing Weight 73.18 kg [place] Body Weight 45 kg Weight Source StatedGeneral: [...] L 31.9 \\ Radiology Results (Last 48 hours)[id number] -- 10/21/2016 16:44CR Small Bowel Series (10/22/2016 13:10) Result: SMALL BOWEL FOLLOW-THROUGHHISTORY: Obstruction.PROCEDURE: The patient ingested Gastrografin. Spot and overhead filmswere obtained.FINDINGS: The shake maker film shows borderline dilated loops of bowel. [...] 22)3.5(OCTOBER 21) . Impression and PlanSmall bowel liseqcznmll-Z-vysw, opiates, diabetes-General surgery Dr. Nolen consult-Nothing by [...] transdermal film, extended release: 1 Patch, TransDermal, V21BZcjssyzmdb regular sliding scale: Scale B, SubCutaneous, T9Omzgjbnmxob: 10 mg, Oral, Dailymorphine: 2 mg, IV [...] SSS (sick sinus syndrome) Syncope ObjectiveIntake and Cslvmh38 hour intake, 24 hour outputVS/MeasurementsVital Signs/Vital Measures10/22/2016 [...] Date: 10/21/16 CHRISTIAN Livingston MD-[facility] Small bowel galwhaxyyyi-M-iukg, opiates, diabetes-General surgery Dr. Nolen consult-Nothing by mouth, G-tube to suction, IV fluidsAtrial fibrillation-Hold Eliquis for possible surgery-[facility] neuropathy on [...] mg tab 650 mg 2 Tab, Oral, P0Amuhczffew-iudnbnvbjfk inh 3 mL 3 mL, Nebulized Inhalation, S1Jugnzbxigoun 4 mg/2 mL inj 4 mg 2 mL, IV Push, A9PMrbrum Signs (last 24 hrs) Last Charted Minimum [...] Sheet How to Take Your Blood Pressure, Hepf-qz-Epyw Ileus"
--- OUTSIDE RECORDS SUMMARY | 2016-10-29 14:31 | External Medical Summary Rpt ---
Author Author , Organization [employer] Address Unknown Phone Unavailable Care Team Providers Care Shook Splicer Name Role Phone Lj Ballesteros MD, Unavailable Unavailable Lj Ballesteros MD Purpose Continuity of Care Document - 09-07-2012 through 2016 Problems Code Diagnosis DOS Provider Status [id number] Asthma [facility] 250.60 Diabetic [place] peripheral [facility] [id number] Migraine [facility] [id number] Osteoarthri [facility] 401.9 Essential [place] hypertensio [facility] 427.31 Atrial [place] fibrillatio [facility] 427.81 Sick sinus [place] syndrome [facility] [id number] Diabetes [place] mellitus [facility] type 2 [facility] 447.6 Vasculitis [facility] [id number] Rheumatoid [place] arthritis [facility] [id number] Chronic [facility] K56.60 UNSPECIFIED INTESTINAL OBSTRUCTION N28.9 DISORDER OF KIDNEY AND URETER, UNSPECIFIED N39.0 URINARY TRACT INFECTION, SITE NOT SPECIFIED Allergies, Adverse Reactions, Alerts Type Allergy to substance Drug Allergy Adverse Reaction to Substance Substance Reaction Severity IVP DYE Unknown Unknown Beta-Adrenergic Unknown Unknown Linda SULFA (sulfonamide) Unknown Unknown Sulfonamide Related Unknown Unknown Aspirin Unknown Unknown Prochlorperazine Unknown Unknown Amitriptyline Unknown Unknown Acetaminophen NA-NAUSEA/VOMITING Unknown Chlorpromazine Unknown Unknown Isometheptene NA-NAUSEA/VOMITING Unknown Ergotamine HEART PALPITATIONS Unknown Trimethoprim Unknown Unknown Sulfamethoxazole Unknown Unknown Caffeine HEART PALPITATIONS Unknown Duloxetine FACIAL REACTIONS Mild Dichloralphenazone NA-NAUSEA/VOMITING Unknown Clinical Alert Notifications Alert Diabetes: no eye exam in the last 365 days Diabetes: no lipid panel in the last 365 days Diabetes: no urine protein screening in the last 365 days Medications Na ND Rx Da Fi Fi Am Da Di Ph RX Ph St me C No te ll ll ou ys ag ar # ys at rm s nt no ma ic us Or Da si cy ia de te s n re d Sa 63 01 0 No li 80 -1 ne 70 3- Lo 10 20 ng Fl 07 14 er us 5 h Ac 10 ti ML ve Sy ri ng e NI 00 01 0 No TR 28 -1 O- 10 3- Lo BI 32 20 ng D 60 14 er 2% 8 Ac OI ti NT ve ME NT Sa 63 01 0 No li 80 -1 ne 70 3- Lo 10 20 ng Fl 07 14 er us 5 h Ac 10 ti ML ve Sy ri ng e SO 00 12 0 No DI 40 -2 UM 97 4- Lo 98 20 ng CH 30 13 er LO 9 RI Ac DE ti ve 0. 9% SO ELIZABETH TI ON Sa 63 12 0 No li 80 -2 ne 70 4- Lo 10 20 ng Fl 07 13 er us 5 h Ac 10 ti ML ve Sy ri ng e Di 55 12 0 No lt 39 -2 ia 00 4- Lo ze 56 20 ng m 60 13 er 25 5 MG Ac /5 ti ML ve Vi al HY [address] 40 -2 OC 60 4- Lo OD 36 20 ng ON 56 13 er -A 2 CE Ac TA ti FL ve NO PH EN 5- 32 5 FS 12 0 No -2 BL 4- Lo OO 20 ng D 13 er DENNIS GA Ac R ti ve HU 00 12 0 No MA 00 -2 LO 27 4- Lo G 51 20 ng 10 01 13 er 0 7 UN Ac IT ti S/ ve ML AL Al 68 12 0 No pr 08 -2 az 40 4- Lo ol 01 20 ng am 80 13 er 1 0. Ac 25 ti MG ve Ta bl et Ga 68 12 0 No ba 08 -2 pe 40 4- Lo nt 59 20 ng in 56 13 er 5 40 Ac 0M ti G ve Ca ps ul e AM 51 12 0 No LO 07 -2 DI 90 4- Lo PI 45 20 ng NE 12 13 er 0 BE Ac SY ti LA ve TE 5 MG TA B BI 00 12 0 No SO 18 -2 MA 50 4- Lo OL 77 20 ng OL 13 13 er 0 FU Ac MA ti RA ve TE 5 MG TA B MU 00 12 0 No LT 02 -2 AQ 44 4- Lo 14 20 ng 40 26 13 er 0 0 MG Ac ti TA ve BL ET HY [address] 07 -2 OC 90 4- Lo HL 77 20 ng OR 62 13 er OT 0 HI Ac AZ ti ID ve E 12 .5 MG CP AV 00 12 0 No AP 08 -2 RO 72 4- Lo 77 20 ng 15 23 13 er 0 1 MG Ac ti TA ve BL ET DI 00 12 0 No LT 40 -2 IA 94 4- Lo ZE 35 20 ng M 00 13 er HC 3 L Ac 10 ti 0 ve MG AL Sa 63 12 0 No li 80 -2 ne 70 4- Lo 10 20 ng Fl 07 13 er us 5 h Ac 10 ti ML ve Sy ri ng e Di 55 12 0 No lt 39 -2 ia 00 4- Lo ze 56 20 ng m 60 13 er 25 5 MG Ac /5 ti ML ve Vi al Al 68 12 0 No pr 08 -2 az 40 4- Lo ol 01 20 ng am 80 13 er 1 0. Ac 25 ti MG ve Ta bl et Ga 68 12 0 No ba 08 -2 pe 40 4- Lo nt 59 20 ng in 56 13 er 5 40 Ac 0M ti G ve Ca ps ul e Sa 63 12 0 No li 80 -2 ne 70 4- Lo 10 20 ng Fl 07 13 er us 5 h Ac 10 ti ML ve Sy ri ng e Di 55 12 0 No lt 39 -2 ia 00 4- Lo ze 56 20 ng m 60 13 er 25 5 MG Ac /5 ti ML ve Vi al Al 68 12 0 No pr 08 -2 az 40 4- Lo ol 01 20 ng am 80 13 er 1 0. Ac 25 ti MG ve Ta bl et Ga 68 12 0 No ba 08 -2 pe 40 4- Lo nt 59 20 ng in 56 13 er 5 40 Ac 0M ti G ve Ca ps ul e Sa 63 10 0 No li 80 -0 ne 70 3- Lo 10 20 ng Fl 07 13 er us 5 h Ac 10 ti ML ve Sy ri ng e LO 00 10 0 No RA 64 -0 ZE 16 3- Lo PA 04 20 ng M 82 13 er 2 5 MG Ac /M ti L ve AL HY [address] 40 -2 OM 91 7- Lo OR 31 20 ng PH 23 13 er ON 0 E Ac 2 ti MG ve /M L CA RP UJ CT SO 00 05 0 No DI 40 -0 UM 97 9- Lo 98 20 ng CH 30 13 er LO 9 RI Ac DE ti ve 0. 9% SO ELIZABETH TI ON ON 00 05 0 No DA 64 -0 NS 16 9- Lo ET 08 20 ng RO 02 13 er N 5 HC Ac L ti 4 ve MG /2 ML AL MA 00 05 0 No OM 64 -0 ET 11 9- Lo ALVARES 49 20 ng ZI 53 13 er NE 5 Ac 25 ti ve MG /M L AM PU L Sa 63 03 0 No li 80 -2 ne 70 2- Lo 10 20 ng Fl 07 13 er us 5 h Ac 10 ti ML ve Sy ri ng e Di 55 03 0 No lt 39 -2 ia 00 2- Lo ze 56 20 ng m 60 13 er 25 5 MG Ac /5 ti ML ve Vi al Mo 00 03 0 No rp 40 -2 hi 91 2- Lo ne 76 20 ng 23 13 er 2M 0 G/ Ac Ml ti ve Sy ri ng e Di 55 03 0 No lt 39 -2 ia 00 2- Lo ze 56 20 ng m 60 13 er 25 5 MG Ac /5 ti ML ve Vi al KE 00 03 0 No TO 40 -2 RO 93 2- Lo LA 79 20 ng C 50 13 er 30 1 Ac MG ti /M ve L AL Vital Signs 07-06-2013 12:49 Name Value Interpretat Reference Comment ion Range Body 98.7 [degF] Temperature BP 71 mm[Hg] Diastolic BP Systolic 127 mm[Hg] Heart 60 /min Rate/Pulse O2% 96 % Respiratory 20 /min Rate 07-06-2013 11:00 Name Value Interpretat Reference Comment ion Range O2% 95 % Respiratory 20 /min Rate 07-06-2013 10:34 Name Value Interpretat Reference Comment ion Range BP 85 mm[Hg] Diastolic BP Systolic 135 mm[Hg] Heart 62 /min Rate/Pulse 07-01-2013 11:02 Name Value Interpretat Reference Comment ion Range BP 74 mm[Hg] Diastolic BP Systolic 119 mm[Hg] Heart 62 /min Rate/Pulse O2% 96 % Respiratory 16 /min Rate 07-01-2013 06:15 Name Value Interpretat Reference Comment ion Range BP 76 mm[Hg] Diastolic BP Systolic 116 mm[Hg] Heart 60 /min Rate/Pulse Respiratory 11 /min Rate 07-01-2013 05:15 Name Value Interpretat Reference Comment ion Range O2% 96 % 06-11-2013 12:36 Name Value Interpretat Reference Comment ion Range Body 97.6 [degF] Temperature BP 74 mm[Hg] Diastolic BP Systolic 129 mm[Hg] Heart 61 /min Rate/Pulse Respiratory 20 /min Rate 06-11-2013 10:00 Name Value Interpretat Reference Comment ion Range O2% 98 % 06-11-2013 03:11 Name Value Interpretat Reference Comment ion Range Height 162.56 cm Weight 85.305 kg Measured 06-11-2013 00:39 Name Value Interpretat Reference Comment ion Range Body 99.5 [degF] Temperature BP 120 mm[Hg] Diastolic BP Systolic 161 mm[Hg] Heart 148 /min Rate/Pulse O2% 96 % Respiratory 25 /min Rate Weight 00 [oz_av] Measured 04-09-2013 12:32 Name Value Interpretat Reference Comment ion Range Body 97.8 [degF] Temperature BP 86 mm[Hg] Diastolic BP Systolic 157 mm[Hg] Heart 68 /min Rate/Pulse O2% 95 % Respiratory 20 /min Rate 04-09-2013 12:24 Name Value Interpretat Reference Comment ion Range Body 97.8 [degF] Temperature 04-09-2013 10:52 Name Value Interpretat Reference Comment ion Range BP 86 mm[Hg] Diastolic BP Systolic 146 mm[Hg] Heart 74 /min Rate/Pulse O2% 96 % Respiratory 20 /min Rate 03-21-2013 15:36 Name Value Interpretat Reference Comment ion Range BP 52 mm[Hg] Diastolic BP Systolic 104 mm[Hg] Heart 82 /min Rate/Pulse O2% 98 % Respiratory 16 /min Rate 03-21-2013 15:06 Name Value Interpretat Reference Comment ion Range BP 83 mm[Hg] Diastolic BP Systolic 117 mm[Hg] Heart 85 /min Rate/Pulse O2% 98 % Respiratory 16 /min Rate 02-12-2013 18:21 Name Value Interpretat Reference Comment ion Range Body 98.7 [degF] Temperature BP 90 mm[Hg] Diastolic BP Systolic 150 mm[Hg] Heart 74 /min Rate/Pulse O2% 98 % Respiratory 20 /min Rate 02-12-2013 16:09 Name Value Interpretat Reference Comment ion Range BP 97 mm[Hg] Diastolic BP Systolic 156 mm[Hg] Heart 78 /min Rate/Pulse O2% 98 % Respiratory 20 /min Rate 10-25-2012 12:44 Name Value Interpretat Reference Comment ion Range BP 79 mm[Hg] Diastolic BP Systolic 145 mm[Hg] Heart 77 /min Rate/Pulse O2% 97 % Respiratory 14 /min Rate 10-25-2012 12:43 Name Value Interpretat Reference Comment ion Range BP 79 mm[Hg] Diastolic BP Systolic 145 mm[Hg] Heart 77 /min Rate/Pulse O2% 97 % Respiratory 14 /min Rate 10-25-2012 10:33 Name Value Interpretat Reference Comment ion Range BP 93 mm[Hg] Diastolic BP Systolic 158 mm[Hg] Heart 72 /min Rate/Pulse O2% 98 % Respiratory 22 /min Rate 09-07-2012 16:17 Name Value Interpretat Reference Comment ion Range Body 99.0 [degF] Temperature BP 69 mm[Hg] Diastolic BP Systolic 135 mm[Hg] Heart 109 /min Rate/Pulse O2% 97 % Respiratory 20 /min Rate 09-07-2012 13:43 Name Value Interpretat Reference Comment ion Range BP 86 mm[Hg] Diastolic BP Systolic 133 mm[Hg] Heart 142 /min Rate/Pulse O2% 96 % Respiratory 20 /min Rate Results Labs Lab Lab Date Result Refere Interp Status Commen Order Detail nces retati t Range on Hgb A1c MFr Bld (10-03-2016 10:37) Hgb A1c 7.3 % 4.7-6.0 complet MFr 017 ed Bld 10:37 ESR Bld Qn (10-03-2016 10:37) ESR Bld 48 0-20 complet Qn 017 mm/hr ed 10:37 Fungus Tiss Cult (08-01-2016 16:33) Bacteri [id number] complet a XXX 017 03 ed Anaerob 16:33 sample: e+Aerob fungus e Cult not isolate d (findin g) SCT NF42 NO FUNGAL GROWTH AT 6 WEEKS L Bacteri [id number] complet a XXX 017 03 ed Anaerob 16:33 sample: e+Aerob fungus e Cult not isolate d (findin g) SCT NF21 NO FUNGAL GROWTH AT 3 WEEKS L Mycobacterium XXX Ql Cult (08-01-2016 16:33) Bacteri [id number] complet a XXX 017 00 not ed Anaerob 16:33 isolate e+Aerob d e Cult (qualif ier value) SCT NM42 NO ACID FAST BACILLI ISOLATE D AT 6 WEEKS L Bacteri [id number] complet a XXX 017 00 not ed Anaerob 16:33 isolate e+Aerob d e Cult (qualif ier value) SCT NM21 NO ACID FAST BACILLI ISOLATE D AT 3 WEEKS L PT BldC (04-27-2016 08:40) INR PPP 1.2 0.8-1.2 complet 016 ed 08:40 Comment: Serial Number: [id number] Bo[employer] Boss: [id number] PT PPP 14.3 12.8-15 complet 016 seconds .2 ed 08:40 Bas Metab 2000 Pnl SerPl (04-27-2016 08:23) Comment: Meter: [id number] Boom Boss: [id number] Sami Haddad Glucose 163 70-130 complet BldC 016 mg/dL ed Glucomt 08:23 r-mCnc PROTIME/INR (07-06-2013 11:30) PROTHRO 36.6 9.9-11. complet MBIN 014 SECONDS 6 ed TIME 11:30 INR Bld 3.38 0.9-1.1 complet 014 UNK ed 11:30 COMPREHENSIVE METABOLIC PANEL (07-06-2013 11:25) Glucose 299 74-106 complet 014 mg/dL ed Bld-mCn 11:25 c BUN 19 7-18 complet Bld-mCn 014 mg/dL ed c 11:25 Creat 1.0 0.6-1.0 complet SerPl-m 014 mg/dL ed Cnc 11:25 GFR/BSA 55 59- complet .pred 014 ML/MIN ed SerPl 11:25 Schwart z-vRate Sodium 137 136-145 complet SerPl-s 014 mmoL/L ed Cnc 11:25 Potassi 4.3 3.5-5.1 complet um 014 mmoL/L ed SerPl-s 11:25 Cnc Chlorid 101 98-107 complet e 014 mmoL/L ed SerPl-s 11:25 Cnc CO2 26 21.0-32 complet SerPl-s 014 mmoL/L .0 ed Cnc 11:25 Calcium 8.9 8.5-10. complet 014 mg/dL 1 ed SerPl-m 11:25 Cnc Prot 7.4 6.4-8.2 complet SerPl-m 014 gm/dL ed Cnc 11:25 Albumin 3.7 3.4-5.0 complet 014 gm/dL ed SerPl-m 11:25 Cnc Globuli 18-2 3.7 1.3-3.2 complet n 014 gm/dL ed Ser-mCn 11:25 c Albumin 18-2 1.0 UNK 1.1-1.8 complet /Glob 014 ed SerPl-m 11:25 Rto Bilirub 07-06-2 0.4 0.2-1.0 complet 014 mg/dL ed SerPl-m 11:25 Cnc AST 07-06-2 24 U/L 15-37 complet SerPl-c 014 ed Cnc 11:25 ALT 07-06-2 33 U/L 12-78 complet SerPl-c 014 ed Cnc 11:25 ALP 07-06-2 128 U/L 50-136 complet SerPl-c 014 ed Cnc 11:25 CBC with AUTO DIFF (07-06-2013 11:25) WBC # -18-2 7.6 4.8-10. complet Bld 014 K/MM3 8 ed Auto 11:25 RBC # 18-2 4.34 4.2-5.4 complet Bld 014 M/mm3 ed Auto 11:25 Hgb 18-2 13.6 12.2-16 complet Bld-mCn 014 g/dL .2 ed c 11:25 Hct Fr 07-06-2 41.9 % 37.0-47 complet Bld 014 .0 ed 11:25 MCV RBC 07-06-2 96.5 fl 82.2-97 complet 014 .8 ed 11:25 MCH RBC 07-06-2 31.3 pg 27-31.2 complet Qn 014 ed Auto 11:25 MEAN 07-06-2 32.5 31.8-35 complet CORPUSC 014 g/dl .4 ed ULAR 11:25 HGB CONC RDW RBC 18-2 15.1 % 11.5-17 complet Auto 014 .5 ed 11:25 Platele -18-2 192 142-424 complet t Bld 014 K/mm3 ed Ql 11:25 Manual MEAN 18-2 7.9 fl 7.4-10. complet PLATELE 014 4 ed T 11:25 VOLUME Granulo 07-06-2 51.2 % 37.0-80 complet cytes 014 .0 ed Fr Bld 11:25 Auto LYMPH % 01-18-2 42.4 % 10-50.0 complet 014 ed 11:25 Monocyt 01-18-2 3.4 % 1.7-9.3 complet es Fr 014 ed Bld 11:25 Auto Eosinop 01-18-2 2.8 % 0.1-12. complet hil Fr 014 0 ed Bld 11:25 Auto Basophi 01-18-2 0.2 % 0.1-2.0 complet ls Fr 014 ed Bld 11:25 Auto Granulo 01-18-2 3.9 1.8-7.8 complet cytes # 014 K/mm3 ed Bld 11:25 Auto Lymphoc 01-18-2 3.2 0.7-4.5 complet ytes Fr 014 K/mm3 ed Bld 11:25 Auto Monocyt 01-18-2 0.3 0.1-1.0 complet es # 014 K/mm3 ed Bld 11:25 Auto Eosinop 01-18-2 0.2 0.0-0.4 complet hil # 014 K/mm3 ed Bld 11:25 Auto Basophi 01-18-2 0.0 0-0.2 complet ls # 014 K/MM3 ed Bld 11:25 Auto URINALYSIS/COMPLETE (07-06-2013 10:53) URINE -18-2 YELLOW YELLOW complet COLOR 014 ed 10:53 URINE 01-18-2 CLOUDY CLEAR complet APPEARA 014 ed NCE 10:53 URINE 01-18-2 3+ NEG complet GLUCOSE 014 ed - 10:53 DIPSTIC K URINE 01-18-2 NEGATIV NEG complet BILIRUB 014 E ed IN - 10:53 DIPSTIC K URINE 01-18-2 NEGATIV NEG complet KETONE 014 E mg/dL ed 10:53 URINE 01-18-2 1.020 1.005-1 complet SPECIFI 014 UNK .030 ed C 10:53 GRAVITY URINE 01-18-2 NEGATIV NEG complet BLOOD 014 E ed 10:53 URINE 01-18-2 5.5 UNK 5.0-8.5 complet PH 014 ed 10:53 URINE 01-18-2 NEGATIV NEG complet PROTEIN 014 E mg/dL ed - 10:53 DIPSTIC K URINE 01-18-2 0.2 NEG complet UROBILI 014 E.U./dL ed NOGEN - 10:53 DIPSTIC K URINE NEGATIV NEG complet NITRATE 014 E ed - 10:53 DIPSTIC K URINE TRACE NEG complet LEUK 014 ed ESTERAS 10:53 E URINE 20-50 O complet WBC 014 wbc/hpf ed 10:53 URINE OCC 0-5 complet SQUAMOU 014 #/hpf ed S CELLS 10:53 URINE 1+ O complet BACTERI 014 ed A 10:53 URINE 3+ NONE complet YEAST 014 ed 10:53 COMPREHENSIVE METABOLIC PANEL (07-01-2013 05:55) Glucose 391 74-106 complet 014 mg/dL ed Bld-mCn 05:55 c BUN 9 mg/dL 7-18 complet Bld-mCn 014 ed c 05:55 Creat 0.8 0.6-1.0 complet SerPl-m 014 mg/dL ed Cnc 05:55 Creat 88 50-200 complet Cl 014 ML/MIN ed predict 05:55 ed SerPl C-G-vRa te GFR/BSA 72 59- complet .pred 014 ML/MIN ed SerPl 05:55 Schwart z-vRate Sodium 138 136-145 complet SerPl-s 014 mmoL/L ed Cnc 05:55 Potassi 4.1 3.5-5.1 complet um 014 mmoL/L ed SerPl-s 05:55 Cnc Chlorid 102 98-107 complet e 014 mmoL/L ed SerPl-s 05:55 Cnc CO2 31 21.0-32 complet SerPl-s 014 mmoL/L .0 ed Cnc 05:55 Calcium 8.2 8.5-10. complet 014 mg/dL 1 ed SerPl-m 05:55 Cnc Prot 6.5 6.4-8.2 complet SerPl-m 014 gm/dL ed Cnc 05:55 Albumin 3.2 3.4-5.0 complet 014 gm/dL ed SerPl-m 05:55 Cnc Globuli 3.3 1.3-3.2 complet n 014 gm/dL ed Ser-mCn 05:55 c Albumin 1.0 UNK 1.1-1.8 complet /Glob 014 ed SerPl-m 05:55 Rto Bilirub 0.3 0.2-1.0 complet 014 mg/dL ed SerPl-m 05:55 Cnc AST 14 U/L 15-37 complet SerPl-c 014 ed Cnc 05:55 ALT 38 U/L 30-65 complet SerPl-c 014 ed Cnc 05:55 ALP 143 U/L 50-136 complet SerPl-c 014 ed Cnc 05:55 PROTIME/INR (07-01-2013 05:55) PROTHRO 31.1 9.9-11. complet MBIN 014 SECONDS 6 ed TIME 05:55 INR Bld 2.88 0.9-1.1 complet 014 UNK ed 05:55 CBC with AUTO DIFF (07-01-2013 05:55) WBC # 5.7 4.8-10. complet Bld 014 K/MM3 8 ed Auto 05:55 RBC # 3.94 4.2-5.4 complet Bld 014 M/mm3 ed Auto 05:55 Hgb 12.4 12.2-16 complet Bld-mCn 014 g/dL .2 ed c 05:55 Hct Fr 38.2 % 37.0-47 complet Bld 014 .0 ed 05:55 MCV RBC 96.8 fl 82.2-97 complet 014 .8 ed 05:55 MCH RBC 31.3 pg 27-31.2 complet Qn 014 ed Auto 05:55 MEAN 32.4 31.8-35 complet CORPUSC 014 g/dl .4 ed ULAR 05:55 HGB CONC RDW RBC 07-01- 14.9 % 11.5-17 complet Auto 014 .5 ed 05:55 Platele 179 142-424 complet t Bld 014 K/mm3 ed Ql 05:55 Manual MEAN 7.9 fl 7.4-10. complet PLATELE 014 4 ed T 05:55 VOLUME Granulo 01-13-2 44.0 % 37.0-80 complet cytes 014 .0 ed Fr Bld 05:55 Auto LYMPH % 01-13-2 48.4 % 10-50.0 complet 014 ed 05:55 Monocyt 01-13-2 4.1 % 1.7-9.3 complet es Fr 014 ed Bld 05:55 Auto Eosinop -13-2 3.2 % 0.1-12. complet hil Fr 014 0 ed Bld 05:55 Auto Basophi -13-2 0.3 % 0.1-2.0 complet ls Fr 014 ed Bld 05:55 Auto Granulo 01-13-2 2.5 1.8-7.8 complet cytes # 014 K/mm3 ed Bld 05:55 Auto Lymphoc -13-2 2.8 0.7-4.5 complet ytes Fr 014 K/mm3 ed Bld 05:55 Auto Monocyt -13-2 0.2 0.1-1.0 complet es # 014 K/mm3 ed Bld 05:55 Auto Eosinop -13-2 0.2 0.0-0.4 complet hil # 014 K/mm3 ed Bld 05:55 Auto Basophi 01-13-2 0.0 0-0.2 complet ls # 014 K/MM3 ed Bld 05:55 Auto Glucose [facility]comtr[facility] (06-11-2013 11:48) Glucose 24-2 395 70-110 High complet BldC 013 mg/dl alert ed Glucomt 11:48 [facility] Glucose dC Glucomtr-[facility] (06-11-2013 06:28) Glucose 24-2 235 70-110 complet BldC 013 mg/dl ed Glucomt 06:28 [facility] COMPREHENSIVE METABOLIC PANEL (06-11-2013 01:05) Glucose 24-2 351 74-106 complet 013 mg/dL ed Bld-n 01:05 c BUN 06-11-2 17 7-18 complet Bld-n 013 mg/dL ed c 01:05 Creat 24-2 1.0 0.6-1.0 complet SerPl-m 013 mg/dL ed Cnc 01:05 Creat 06-11-2 70 50-200 complet Cl 013 ML/MIN ed predict 01:05 ed SerPl C-G-vRa te GFR/BSA 55 59- complet .pred 013 ML/MIN ed SerPl 01:05 Schwart z-vRate Sodium 137 136-145 complet SerPl-s 013 mmoL/L ed Cnc 01:05 Potassi 3.9 3.5-5.1 complet um 013 mmoL/L ed SerPl-s 01:05 Cnc Chlorid 100 98-107 complet e 013 mmoL/L ed SerPl-s 01:05 Cnc CO2 27 21.0-32 complet SerPl-s 013 mmoL/L .0 ed Cnc 01:05 Calcium 8.9 8.5-10. complet 013 mg/dL 1 ed SerPl-m 01:05 Cnc Prot 7.3 6.4-8.2 complet SerPl-m 013 gm/dL ed Cnc 01:05 Albumin 3.6 3.4-5.0 complet 013 gm/dL ed SerPl-m 01:05 Cnc Globuli 3.7 1.3-3.2 complet n 013 gm/dL ed Ser-mCn 01:05 c Albumin 1.0 UNK 1.1-1.8 complet /Glob 013 ed SerPl-m 01:05 Rto Bilirub 0.4 0.2-1.0 complet 013 mg/dL ed SerPl-m 01:05 Cnc AST 25 U/L 15-37 complet SerPl-c 013 ed Cnc 01:05 ALT 46 U/L 30-65 complet SerPl-c 013 ed Cnc 01:05 ALP 138 U/L 50-136 complet SerPl-c 013 ed Cnc 01:05 PROTIME/INR (06-11-2013 01:05) PROTHRO 16.9 9.9-11. complet MBIN 013 SECONDS 6 ed TIME 01:05 INR Bld 1.57 0.9-1.1 complet 013 UNK ed 01:05 CBC with AUTO DIFF (06-11-2013 01:05) WBC # 12-24-2 10.4 4.8-10. complet Bld 013 K/MM3 8 ed Auto 01:05 RBC # 12-24-2 4.24 4.2-5.4 complet Bld 013 M/mm3 ed Auto 01:05 Hgb 12-24-2 13.5 12.2-16 complet Bld-mCn 013 g/dL .2 ed c 01:05 Hct Fr 24-2 40.7 % 37.0-47 complet Bld 013 .0 ed 01:05 MCV RBC -24-2 95.9 fl 82.2-97 complet 013 .8 ed 01:05 MCH RBC 24-2 31.8 pg 27-31.2 complet Qn 013 ed Auto 01:05 MEAN -24-2 33.2 31.8-35 complet CORPUSC 013 g/dl .4 ed ULAR 01:05 HGB CONC RDW RBC -24-2 15.3 % 11.5-17 complet Auto 013 .5 ed 01:05 Platele -24-2 194 142-424 complet t Bld 013 K/mm3 ed Ql 01:05 Manual MEAN 24-2 8.1 fl 7.4-10. complet PLATELE 013 4 ed T 01:05 VOLUME Granulo -24-2 61.5 % 37.0-80 complet cytes 013 .0 ed Fr Bld 01:05 Auto LYMPH % 12-24-2 33.2 % 10-50.0 complet 013 ed 01:05 Monocyt 12-24-2 3.6 % 1.7-9.3 complet es Fr 013 ed Bld 01:05 Auto Eosinop 12-24-2 1.3 % 0.1-12. complet hil Fr 013 0 ed Bld 01:05 Auto Basophi 12-24-2 0.3 % 0.1-2.0 complet ls Fr 013 ed Bld 01:05 Auto Granulo 12-24-2 6.4 1.8-7.8 complet cytes # 013 K/mm3 ed Bld 01:05 Auto Lymphoc 12-24-2 3.5 0.7-4.5 complet ytes Fr 013 K/mm3 ed Bld 01:05 Auto Monocyt 12-24-2 0.4 0.1-1.0 complet es # 013 K/mm3 ed Bld 01:05 Auto Eosinop 06-11-2 0.1 0.0-0.4 complet hil # 013 K/mm3 ed Bld 01:05 Auto Basophi 06-11-2 0.0 0-0.2 complet ls # 013 K/MM3 ed Bld 01:05 Auto COMPREHENSIVE METABOLIC PANEL (04-09-2013 11:05) Glucose 319 74-106 complet 013 mg/dL ed Bld-mCn 11:05 c BUN 15 7-18 complet Bld-mCn 013 mg/dL ed c 11:05 Creat 0.9 0.6-1.0 complet SerPl-m 013 mg/dL ed Cnc 11:05 GFR 63 59- complet (ESTIMA 013 ML/MIN ed ALLYSON) 11:05 Sodium 138 136-145 complet SerPl-s 013 mmoL/L ed Cnc 11:05 Potassi 4.8 3.5-5.1 complet um 013 mmoL/L ed SerPl-s 11:05 Cnc Chlorid 102 98-107 complet e 013 mmoL/L ed SerPl-s 11:05 Cnc CO2 27 21.0-32 complet SerPl-s 013 mmoL/L .0 ed Cnc 11:05 Calcium 8.2 8.5-10. complet 013 mg/dL 1 ed SerPl-m 11:05 Cnc Prot 6.4 6.4-8.2 complet SerPl-m 013 gm/dL ed Cnc 11:05 Albumin 3.5 3.4-5.0 complet 013 gm/dL ed SerPl-m 11:05 Cnc Globuli 2.9 1.3-3.2 complet n 013 gm/dL ed Ser-mCn 11:05 c Albumin 1.2 UNK 1.1-1.8 complet /Glob 013 ed SerPl-m 11:05 Rto Bilirub 0.2 0.2-1.0 complet 013 mg/dL ed SerPl-m 11:05 Cnc AST 16 U/L 15-37 complet SerPl-c 013 ed Cnc 11:05 ALT 04-09-2 36 U/L 30-65 complet SerPl-c 013 ed Cnc 11:05 ALP 04-09-2 140 U/L 50-136 complet SerPl-c 013 ed Cnc 11:05 CK SerPl-cCnc (04-09-2013 11:05) CK 04-09-2 48 U/L 26-192 complet SerPl-c 013 ed Cnc 11:05 CK MB SerPl-mCnc (04-09-2013 11:05) CK MB 04-09-2 0.8 0.0-3.6 complet SerPl-m 013 ng/mL ed Cnc 11:05 TROPONIN I (04-09-2013 11:05) TROPONI 04-09-2 0.01 0.00-0. complet N I 013 ng/mL 06 ed 11:05 CBC with AUTO DIFF (04-09-2013 11:05) WBC # 22-2 5.7 4.8-10. complet Bld 013 K/MM3 8 ed Auto 11:05 RBC # 04-09-2 3.78 4.2-5.4 complet Bld 013 M/mm3 ed Auto 11:05 Hgb 04-09-2 12.2 12.2-16 complet Bld-mCn 013 g/dL .2 ed c 11:05 Hct Fr 04-09- 38.0 % 37.0-47 complet Bld 013 .0 ed 11:05 MCV RBC 04-09-2 100.5 82.2-97 complet 013 fl .8 ed 11:05 MCH RBC 04-09-2 32.2 pg 27-31.2 complet Qn 013 ed Auto 11:05 MEAN 04-09-2 32.0 31.8-35 complet CORPUSC 013 g/dl .4 ed ULAR 11:05 HGB CONC RDW RBC 04-09-2 14.8 % 11.5-17 complet Auto 013 .5 ed 11:05 Platele 04-09-2 168 142-424 complet t Bld 013 K/mm3 ed Ql 11:05 Manual MEAN 04-09-2 8.2 fl 7.4-10. complet PLATELE 013 4 ed T 11:05 VOLUME Granulo 04-09-2 49.7 % 37.0-80 complet cytes 013 .0 ed Fr Bld 11:05 Auto LYMPH % 04-09-2 43.0 % 10-50.0 complet 013 ed 11:05 Monocyt 04-09-2 4.1 % 1.7-9.3 complet es Fr 013 ed Bld 11:05 Auto Eosinop 04-09-2 2.8 % 0.1-12. complet hil Fr 013 0 ed Bld 11:05 Auto Basophi 04-09-2 0.4 % 0.1-2.0 complet ls Fr 013 ed Bld 11:05 Auto Granulo 04-09-2 2.9 1.8-7.8 complet cytes # 013 K/mm3 ed Bld 11:05 Auto Lymphoc 04-09-2 2.5 0.7-4.5 complet ytes Fr 013 K/mm3 ed Bld 11:05 Auto Monocyt 04-09-2 0.2 0.1-1.0 complet es # 013 K/mm3 ed Bld 11:05 Auto Eosinop 04-09-2 0.2 0.0-0.4 complet hil # 013 K/mm3 ed Bld 11:05 Auto Basophi 04-09-2 0.0 0-0.2 complet ls # 013 K/MM3 ed Bld 11:05 Auto COMPREHENSIVE METABOLIC PANEL (03-21-2013 15:00) Glucose 324 74-106 complet 013 mg/dL ed Bld-mCn 15:00 c BUN 18 7-18 complet Bld-mCn 013 mg/dL ed c 15:00 Creat 1.0 0.6-1.0 complet SerPl-m 013 mg/dL ed Cnc 15:00 GFR 55 59- complet (ESTIMA 013 ML/MIN ed [place]) 15:00 Sodium 139 136-145 complet SerPl-s 013 mmoL/L ed Cnc 15:00 Potassi 4.5 3.5-5.1 complet um 013 mmoL/L ed SerPl-s 15:00 Cnc Chlorid 103 98-107 complet e 013 mmoL/L ed SerPl-s 15:00 Cnc CO2 26 21.0-32 complet SerPl-s 013 mmoL/L .0 ed Cnc 15:00 Calcium 8.4 8.5-10. complet 013 mg/dL 1 ed SerPl-m 15:00 Cnc Prot 6.9 6.4-8.2 complet SerPl-m 013 gm/dL ed Cnc 15:00 Albumin 03-21- 3.5 3.4-5.0 complet 013 gm/dL ed SerPl-m 15:00 Cnc Globuli 3.4 1.3-3.2 complet n 013 gm/dL ed Ser-mCn 15:00 c Albumin 1.0 UNK 1.1-1.8 complet /Glob 013 ed SerPl-m 15:00 Rto Bilirub 0.2 0.2-1.0 complet 013 mg/dL ed SerPl-m 15:00 Cnc AST 25 U/L 15-37 complet SerPl-c 013 ed Cnc 15:00 ALT 36 U/L 30-65 complet SerPl-c 013 ed Cnc 15:00 ALP 138 U/L 50-136 complet SerPl-c 013 ed Cnc 15:00 CK SerPl-cCnc (03-21-2013 15:00) CK 52 U/L 26-192 complet SerPl-c 013 ed Cnc 15:00 CBC with AUTO DIFF (03-21-2013 15:00) WBC # 03-21-2 6.6 4.8-10. complet Bld 013 K/MM3 8 ed Auto 15:00 RBC # 03-21-2 3.95 4.2-5.4 complet Bld 013 M/mm3 ed Auto 15:00 Hgb 03-21- 13.0 12.2-16 complet Bld-mCn 013 g/dL .2 ed c 15:00 Hct Fr 39.6 % 37.0-47 complet Bld 013 .0 ed 15:00 MCV RBC 100.3 82.2-97 complet 013 fl .8 ed 15:00 MCH RBC 32.8 pg 27-31.2 complet Qn 013 ed Auto 15:00 MEAN 32.7 31.8-35 complet CORPUSC 013 g/dl .4 ed ULAR 15:00 HGB CONC RDW RBC 14.4 % 11.5-17 complet Auto 013 .5 ed 15:00 Platele 192 142-424 complet t Bld 013 K/mm3 ed Ql 15:00 Manual MEAN 8.0 fl 7.4-10. complet PLATELE 013 4 ed T 15:00 VOLUME Granulo 43.3 % 37.0-80 complet cytes 013 .0 ed Fr Bld 15:00 Auto LYMPH % 51.1 % 10-50.0 complet 013 ed 15:00 Monocyt 3.0 % 1.7-9.3 complet es Fr 013 ed Bld 15:00 Auto Eosinop 2.2 % 0.1-12. complet hil Fr 013 0 ed Bld 15:00 Auto Basophi 0.4 % 0.1-2.0 complet ls Fr 013 ed Bld 15:00 Auto Granulo 2.9 1.8-7.8 complet cytes # 013 K/mm3 ed Bld 15:00 Auto Lymphoc 3.4 0.7-4.5 complet ytes Fr 013 K/mm3 ed Bld 15:00 Auto Monocyt 2 0.2 0.1-1.0 complet es # 013 K/mm3 ed Bld 15:00 Auto Eosinop 03-21-2 0.2 0.0-0.4 complet hil # 013 K/mm3 ed Bld 15:00 Auto Basophi 03-21-2 0.0 0-0.2 complet ls # 013 K/MM3 ed Bld 15:00 Auto COMPREHENSIVE METABOLIC PANEL (10-25-2012 10:00) Glucose 340 74-106 complet 013 mg/dL ed Bld-mCn 10:00 c BUN 19 7-18 complet Bld-mCn 013 mg/dL ed c 10:00 Creat 1.1 0.6-1.0 complet SerPl-m 013 mg/dL ed Cnc 10:00 ESTIMAT 66 50-200 complet ED 013 ML/MIN ed CREATIN 10:00 INE CLEARAN CE GFR 50 59- complet (ESTIMA 013 ML/MIN ed ALLYSON) 10:00 Sodium 135 136-145 complet SerPl-s 013 mmoL/L ed Cnc 10:00 Potassi 3.7 3.5-5.1 complet um 013 mmoL/L ed SerPl-s 10:00 Cnc Chlorid 100 98-107 complet e 013 mmoL/L ed SerPl-s 10:00 Cnc CO2 21 21.0-32 complet SerPl-s 013 mmoL/L .0 ed Cnc 10:00 Calcium 8.8 8.5-10. complet 013 mg/dL 1 ed SerPl-m 10:00 Cnc Prot 7.2 6.4-8.2 complet SerPl-m 013 gm/dL ed Cnc 10:00 Albumin 3.7 3.4-5.0 complet 013 gm/dL ed SerPl-m 10:00 Cnc Globuli 3.5 1.3-3.2 complet n 013 gm/dL ed Ser-mCn 10:00 c Albumin 1.1 UNK 1.1-1.8 complet /Glob 013 ed SerPl-m 10:00 Rto Bilirub 0.4 0.2-1.0 complet 013 mg/dL ed SerPl-m 10:00 Cnc AST 44 U/L 15-37 complet SerPl-c 013 ed Cnc 10:00 ALT 47 U/L 30-65 complet SerPl-c 013 ed Cnc 10:00 ALP 137 U/L 50-136 complet SerPl-c 013 ed Cnc 10:00 PROTIME/INR (10-25-2012 10:00) PROTHRO 25.5 9.8-11. complet MBIN 013 SECONDS 0 ed TIME 10:00 INR Bld 2.47 0.9-1.1 complet 013 UNK ed 10:00 CBC with AUTO DIFF (10-25-2012 10:00) WBC # 10-25- 7.6 4.8-10. complet Bld 013 K/MM3 8 ed Auto 10:00 RBC # 10-25-2 4.28 4.2-5.4 complet Bld 013 M/mm3 ed Auto 10:00 Hgb 2 13.1 12.2-16 complet Bld-mCn 013 g/dL .2 ed c 10:00 Hct Fr 40.2 % 37.0-47 complet Bld 013 .0 ed 10:00 MCV RBC 93.8 fl 82.2-97 complet 013 .8 ed 10:00 MCH RBC 30.5 pg 27-31.2 complet Qn 013 ed Auto 10:00 MEAN 32.5 31.8-35 complet CORPUSC 013 g/dl .4 ed ULAR 10:00 HGB CONC RDW RBC 15.3 % 11.5-17 complet Auto 013 .5 ed 10:00 Platele 223 142-424 complet t Bld 013 K/mm3 ed Ql 10:00 Manual MEAN 7.6 fl 7.4-10. complet PLATELE 013 4 ed T 10:00 VOLUME Granulo 10-25-2 71.1 % 37.0-80 complet cytes 013 .0 ed Fr Bld 10:00 Auto LYMPH % -09-2 24.7 % 10-50.0 complet 013 ed 10:00 Monocyt --2 2.6 % 1.7-9.3 complet es Fr 013 ed Bld 10:00 Auto Eosinop -09-2 1.4 % 0.1-12. complet hil Fr 013 0 ed Bld 10:00 Auto Basophi -09-2 0.2 % 0.1-2.0 complet ls Fr 013 ed Bld 10:00 Auto Granulo 05-09-2 5.4 1.8-7.8 complet cytes # 013 K/mm3 ed Bld 10:00 Auto Lymphoc -09-2 1.9 0.7-4.5 complet ytes Fr 013 K/mm3 ed Bld 10:00 Auto Monocyt 05-09-2 0.2 0.1-1.0 complet es # 013 K/mm3 ed Bld 10:00 Auto Eosinop 05-09-2 0.1 0.0-0.4 complet hil # 013 K/mm3 ed Bld 10:00 Auto Basophi 05-09-2 0.0 0-0.2 complet ls # 013 K/MM3 ed Bld 10:00 Auto COMPREHENSIVE METABOLIC PANEL (09-07-2012 13:20) Glucose 09-07-2 338 74-106 complet 013 mg/dL ed Bld-mCn 13:20 c BUN 09-07-2 11 7-18 complet Bld-mCn 013 mg/dL ed c 13:20 Creat 09-07-2 1.0 0.6-1.0 complet SerPl-m 013 mg/dL ed Cnc 13:20 GFR 09-07- 55 59- complet (ESTIMA 013 ML/MIN ed ALLYSON) 13:20 Sodium 09-07- 137 136-145 complet SerPl-s 013 mmoL/L ed Cnc 13:20 Potassi 09-07-2 3.5 3.5-5.1 complet um 013 mmoL/L ed SerPl-s 13:20 Cnc Chlorid 102 98-107 complet e 013 mmoL/L ed SerPl-s 13:20 Cnc CO2 09-07- 23 21.0-32 complet SerPl-s 013 mmoL/L .0 ed Cnc 13:20 Calcium 09-07-2 8.5 8.5-10. complet 013 mg/dL 1 ed SerPl-m 13:20 Cnc Prot 09-07-2 6.9 6.4-8.2 complet SerPl-m 013 gm/dL ed Cnc 13:20 Albumin 09-07-2 3.3 3.4-5.0 complet 013 gm/dL ed SerPl-m 13:20 Cnc Globuli 09-07-2 3.6 1.3-3.2 complet n 013 gm/dL ed Ser-mCn 13:20 c Albumin 09-07-2 0.9 UNK 1.1-1.8 complet /Glob 013 ed SerPl-m 13:20 Rto Bilirub 09-07-2 0.2 0.2-1.0 complet 013 mg/dL ed SerPl-m 13:20 Cnc AST 09-07-2 25 U/L 15-37 complet SerPl-c 013 ed Cnc 13:20 ALT 09-07-2 42 U/L 30-65 complet SerPl-c 013 ed Cnc 13:20 ALP 03-22-2 157 U/L 50-136 complet SerPl-c 013 ed Cnc 13:20 CBC with AUTO DIFF (09-07-2012 13:20) WBC # 03-22-2 8.4 4.8-10. complet Bld 013 K/MM3 8 ed Auto 13:20 RBC # 03-22-2 4.11 4.2-5.4 complet Bld 013 M/mm3 ed Auto 13:20 Hgb -22-2 12.8 12.2-16 complet Bld-mCn 013 g/dL .2 ed c 13:20 Hct Fr 09-07-2 38.8 % 37.0-47 complet Bld 013 .0 ed 13:20 MCV RBC 22-2 94.5 fl 82.2-97 complet 013 .8 ed 13:20 MCH RBC 22-2 31.2 pg 27-31.2 complet Qn 013 ed Auto 13:20 MEAN 22-2 33.0 31.8-35 complet CORPUSC 013 g/dl .4 ed ULAR 13:20 HGB CONC RDW RBC 22-2 14.3 % 11.5-17 complet Auto 013 .5 ed 13:20 Platele 22-2 216 142-424 complet t Bld 013 K/mm3 ed Ql 13:20 Manual MEAN 09-07-2 7.7 fl 7.4-10. complet PLATELE 013 4 ed T 13:20 VOLUME Granulo -22-2 56.1 % 37.0-80 complet cytes 013 .0 ed Fr Bld 13:20 Auto LYMPH % -22-2 38.1 % 10-50.0 complet 013 ed 13:20 Monocyt -22-2 3.1 % 1.7-9.3 complet es Fr 013 ed Bld 13:20 Auto Eosinop -22-2 2.5 % 0.1-12. complet hil Fr 013 0 ed Bld 13:20 Auto Basophi -22-2 0.3 % 0.1-2.0 complet ls Fr 013 ed Bld 13:20 Auto Granulo 03-22-2 4.7 1.8-7.8 complet cytes # 013 K/mm3 ed Bld 13:20 Auto Lymphoc -22-2 3.2 0.7-4.5 complet ytes Fr 013 K/mm3 ed Bld 13:20 Auto Monocyt 22-2 0.3 0.1-1.0 complet es # 013 K/mm3 ed Bld 13:20 Auto Eosinop 09-07-2 0.2 0.0-0.4 complet hil # 013 K/mm3 ed Bld 13:20 Auto Basophi 09-07-2 0.0 0-0.2 complet ls # 013 K/MM3 ed Bld 13:20 Auto Encounters Encounter Start End Date Code Location Performer Type Date Emergency ANGELINA MATHIS MD (ER) 4 10:37 4 12:58 [facility] Emergency ANGELINA Webster (ER) 4 05:33 4 11:02 [facility] Manny E. Inpatient DENG Ballesteros MD (IN) 3 00:52 3 03:03 [facility] Emergency ANGELINA Ward MD (ER) 3 10:19 3 12:32 [place] [facility] ANGELINA MATHIS MD (ER) 3 13:59 3 15:36 [facility] Emergency ANGELINA Ward MD (ER) 3 15:47 3 18:22 [place] [facility] ANGELINA Webster (ER) 3 10:13 3 12:44 [facility] Manny E. Emergency ANGELINA DIOP MD (ER) 3 14:00 3 16:40 [facility]
--- OUTSIDE RECORDS SUMMARY | 2016-10-29 14:31 | External Medical Summary Rpt ---
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 Mechanic Name Role Phone Lj Ballesteros MD, Unavailable Unavailable Lj Ballesteros MD Purpose Continuity of Care Document - 09-07-2012 through 2016 Problems Code Diagnosis DOS Provider Status 861909276 Asthma 250.60 Diabetic [place] peripheral [facility] [id number] Migraine [id number] Osteoarthri [facility] 401.9 Essential [place] hypertensio [facility] 427.31 Atrial [place] fibrillatio [facility] 427.81 Sick sinus [place] syndrome [facility] [id number] Diabetes [place] mellitus [facility] type 2 [facility] 447.6 Vasculitis [id number] Rheumatoid [place] arthritis [facility] [id number] Chronic K56.60 UNSPECIFIED INTESTINAL OBSTRUCTION N28.9 DISORDER OF [...] 00 12 0 No SO 18 -2 WV 50 4- Lo OL 77 20 ng [...] ti 4 ve MG /2 ML AL WV 00 05 0 No OM 64 -0 [...] 10:37 Fungus Tiss Cult (08-01-2016 16:33) Bacteri [id number] complet a XXX 017 03 ed Anaerob 16:33 sample: e+Aerob fungus e Cult not isolate d (findin g) SCT NF42 NO FUNGAL GROWTH AT 6 WEEKS L Bacteri [id number] complet a XXX 017 03 ed Anaerob 16:33 sample: e+Aerob fungus e Cult not isolate d (findin g) SCT NF21 NO FUNGAL GROWTH AT 3 WEEKS L Mycobacterium XXX Ql Cult (08-01-2016 16:33) Bacteri [id number] complet a XXX 017 00 not ed Anaerob 16:33 isolate e+Aerob d e Cult (qualif ier value) SCT NM42 NO ACID FAST BACILLI ISOLATE D AT 6 WEEKS L Bacteri [id number] complet a XXX 017 00 not ed Anaerob 16:33 isolate e+Aerob d e Cult (qualif ier value) SCT NM21 NO ACID FAST BACILLI ISOLATE D AT 3 WEEKS L PT BldC (04-27-2016 08:40) INR PPP 1.2 0.8-1.2 complet 016 ed 08:40 Comment: Serial Number: [id number] Chemical Engineering Technologist: [id number] PT PPP 14.3 12.8-15 complet 016 seconds .2 ed 08:40 Bas Metab 2000 Pnl SerPl (04-27-2016 08:23) Comment: Meter: [id number] Chemical Engineering Technologist: [id number] Sami Haddad Glucose 163 70-130 complet BldC [...] 014 K/MM3 ed Bld 05:55 Auto Glucose [facility] (06-11-2013 11:48) Glucose 24-2 395 70-110 High complet BldC 013 mg/dl alert ed Glucomt 11:48 [facility] Glucose dC [facility]comtr[facility] (06-11-2013 06:28) Glucose 24-2 235 70-110 complet BldC 013 mg/dl ed Glucomt 06:28 [facility] COMPREHENSIVE METABOLIC PANEL (06-11-2013 01:05) Glucose 24-2 [...] MATHIS MD (ER) 4 10:37 4 12:58 [facility] Emergency ANGELINA Webster (ER) 4 05:33 4 11:02 [facility] Manny E. Inpatient DENG Ballesteros MD (IN) 3 00:52 3 03:03 [facility] Emergency ANGELINA Ward MD (ER) 3 10:19 3 12:32 [facility] Emergency ANGELINA MATHIS MD (ER) 3 13:59 3 15:36 [facility] Emergency ANGELINA Ward MD (ER) 3 15:47 3 18:22 [facility] Emergency ANGELINA Webster (ER) 3 10:13 3 12:44 [facility] Manny E. Emergency ANGELINA DIOP MD (ER) 3 14:00 3 16:40 [facility]
--- OUTSIDE RECORDS SUMMARY | 2016-10-29 14:32 | External Medical Summary Rpt ---
Demographics Preferred Language Malian Marital Status Unknown Roman Catholic Affiliation Unknown Race Unknown Ethnic Group Unknown Author Author , Organization [employer] Address Unknown Phone Unavailable Purpose Continuity of Care Document - through 2016 Immunization No patient found.
--- OUTSIDE RECORDS SUMMARY | 2016-10-29 14:32 | External Medical Summary Rpt ---
Author Author SAEID Vila, [employer] Organization [employer] Address Unknown Phone Unavailable
--- OUTSIDE RECORDS SUMMARY | 2016-10-29 14:32 | External Medical Summary Rpt ---
Demographics Preferred Language Singaporean Marital Status Unknown Advent Affiliation Unknown Race Unknown Ethnic Group Unknown Author Author , Organization [employer] Address Unknown Phone Unavailable Purpose Continuity of Care Document - through 2016 Immunization No patient found.
[2016-10-29 14:56] LABS: LYMPH # 0.9 K/mm3 (0.7-4.5); LYMPH % 10.3 % (10-50.0)
--- NOTE | 2016-10-29 15:07 | Emergency Room Report ---
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 Clinical Suspician of Infection? Mental Status: Sepsis Risk: Have you (or family members/close friends) recently traveled outside the [place]? If Yes, where/when: Have you had exposure to infectious disease within the past month? TB? Other? Specify: Source patient, RN notes reviewed Exam Limitations no limitations Comment PT'S thought she may have had a stroke. 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 She had to have a colon resection because of the vasculitis and was in Jul. found to have a cerebral aneurysm and that was rechecked yesterday with a CT with IV contrast and it is only 4mm in size. Over the past 24 hours she has had some intermittent weakness of the right side of her face but at this time her face is symmetrical and speech is clear and there is no arm drift. Cardiac Chest Pain Chest pain indicative of cardiac No ALLERGIES Coded Allergies: amitriptyline (From Elavil) (Severe, R-[id number]/THROAT; SEIZURES 07/30/15) chlorpromazine (From Thorazine) (Severe, SEIZURES 07/30/15) dichloralphenazone (From Midrin) (Severe, P-VPTKGS-JGGG/THROAT 07/30/15) isometheptene (From Midrin) (Severe, N-ASUEJE-RAVQ/THROAT 07/30/15) prochlorperazine (From Compazine) (Severe, SEIZURES 07/30/15) acetaminophen (From MIDRIN) (Intermediate, 10/14/16) adhesive tape (Intermediate, I-RASH 07/30/15) aspirin (Intermediate, "COLD SWEATS", N/V 07/30/15) Iodinated Contrast Media - Oral and (10/29/16) Sulfa (Sulfonamide Antibiotics) ("CONTRAINDICATED WITH ASTHMA" 07/30/15) cyclobenzaprine (From FLEXERIL) (10/29/16) duloxetine (10/29/16) trimethoprim (10/29/16) Beta-Blockers (Beta-Adrenergic Bloc (Severe, "MAKES ASTHMA WORSE" 07/30/15) caffeine (From Cafergot) (Mild, NA-NAUSEA 07/30/15) ergotamine (From Cafergot) (Mild, NA-NAUSEA 07/30/15) pregabalin (From Lyrica) (Mild, "TOO SEDATED" 07/30/15) Home Medications Reported Medications INSULIN ASPART (Novolog) 0 SC ACHS LISINOPRIL/HYDROCHLOROTHIAZIDE (Lisinopril-Hctz 20-25 MG Tab) 1 TAB PO DAILY #90 TAB Bisoprolol Fumarate 10 MG PO DAILY #90 TAB OXYCODONE HCL (Roxicodone) 10 MG PO PRN PRN PAIN Fentanyl (Fentanyl 25MCG Patch) 50 MCG TD Q72H ALPRAZOLAM (Alprazolam 0.25MG) 0.25 MG PO QID Gabapentin (Neurontin) 800 MG PO QID Polyethylene Glycol 3350 (Miralax) 17 GM PO DAILY PRN CONSTIPATION PROMETHAZINE HCL (Promethazine 25mg Tab) 12.5 MG PO Q4HP PRN N/V Apixaban (Eliquis) 5 MG PO BID Atorvastatin Calcium (Atorvastatin) 40 MG PO DAILY MELATONIN (Melatin) 1 TAB PO QHS Miconazole Nitrate (Miconazole 2% Cream 45GM) 1 WANDER TP BID Pantoprazole Sodium (Protonix 40MG TAB) 40 MG PO DAILY Scopolamine (Transderm-Scop) 0.33 MG TD Q3D History Medical History General CAD? No Angina: Yes MA: No Hypertension? Yes Hyperlipidemia? Yes CHF? No DVT? No PE? No COPD? Yes Asthma? Yes Anemia? No GERD? No Gastric ulcers? No GI Bleed? Yes Hernia? No Thyroid Problems? No Hypothyroidism? No CVA? Yes Seizures? No Diabetes? Yes Insulin Dependent: Yes Insulin Pump: No Home FSBS? Yes Renal Insuffiency? Yes End Stage Renal Disease? No UTI? No Stones? Yes BPH? No GB Disease: Yes Nephritic Syndrome? No Asplenia? No Hepatitis? No Sickle Cell Disease? No Arthritis? Yes Migraines? No Cataracts? No Glaucoma? No MRSA? Yes HIV? No TB? Yes Anxiety? Yes Depression? Yes Cancer? No More? Yes Additional hx: MULTIPLE STROKES Immunization Hx DT/Tetanus 5-10 YRS Flu [id number] Flu Season Pneumonia Received In Past Surgical Hx Previous Surgery?Y APPY; CHRISTINE ABD CYST/TUMOR REMOVAL Renal R SHOULDER RECONSTRUCTION LAP ABAD Orthopedic CERVICAL DISC LOWER BACK SURGERY PACEMAKER SCHURG- EDGARDO VASCULITIS BACK SURGERY CARDIAC ABLATION COLONOSCOPY COLON RESECTION LEFT EYE Family History Family Hx Diabetes Yes CAD Yes Hypertension Yes Hyperlipidemia Yes Cancer Yes TB Yes Social History Smoking Hx Packs/day N/A Alcohol Alcohol: No Review of Systems All Other Systems Reviewed and Negative Constitutional see HPI ENT see HPI. Psychiatric/Neurological see HPI Physical Exam Vital Signs Vital Signs Date Time Temp Pulse Resp B/P Pulse O2 O2 Flow FiO2 Ox Delivery Rate 10/29 1730 72 20 108/68 100 10/29 1631 70 20 94/40 100 10/29 1450 74 20 98/57 100 10/29 1417 100.1 70 20 126/43 100 General Appearance normal appearance, WD/WN, no apparent distress Eye Exam - bilateral eye normal exam Ear, Nose, Throat hearing grossly normal, normal ENT inspection Neck no bruit Respiratory Status No: respiratory distress. 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 No Results/Orders Laboratory Tests 10/29/16 1522: Influenza Type A Ag NOT DETECTED, Influenza Type B Ag NOT DETECTED 10/29/16 1430: Lactic Acid 1.1 10/29/16 1430: Creatine Kinase 837 H, CK-MB (CK-2) Rel Index 1.8, CK and CKMB Interp 14.8 *H, Troponin I < 0.02 10/29/16 1430: Sodium 135 L, Potassium 3.9, Chloride 102, Carbon Dioxide 21 L, BUN 53 H, Creatinine 2.3 H, Estimated Creat Clear 26 L, Estimated GFR (MDRD) 21 L, Glucose 179 H, Calcium 8.6, Total Bilirubin 0.5, AST 27, ALT 26, Alkaline Phosphatase 121 H, Total Protein 7.3, Albumin 3.6, Globulin 3.7 H, Albumin/ Globulin Ratio 1.0 L, WBC 8.6, RBC 3.77 L, Hgb 12.0 L, Hct 37.4, MCV 99.0 H, RDW 14.3, Plt Count 191, MPV 7.3 L, Gran % 84.3 H, Gran # 7.2, Lymphocytes % 10.3, Monocytes % 4.4, Eosinophils % 0.8, Basophils % 0.1, Lymphocytes # 0.9, Monocytes # 0.4, Eosinophils # 0.1, Basophils # 0.0, PUBS MCHC 32.4, MCH 32.0 H Current Medication Orders Sig/Susan Start time Last Medication Dose Route Stop Time Status Admin Sodium Chloride 1,000 ML .Q1H1M 10/29 1615 DC IV 10/29 1715 Sodium Chloride 10 ML PRN PRN 10/29 1615 AC IV 10/30 1602 Sodium Chloride 1,000 ML .STK-MED ONE 10/29 1519 DC IV Sodium Chloride 1,000 ML .Q1H1M 10/29 1500 DC 10/29 IV 10/29 1600 1520 Sodium Chloride 10 ML PRN PRN 10/29 1500 AC IV 10/30 1453 Sodium Chloride 10 ML PRN PRN 10/29 1430 AC IV 10/30 1426 Orders Procedure Date/time Status DIET-NOTHING BY MOUTH 10/[address] HEAD REQ 10/[address] ABD/PELVIS REQ 10/29 1454 Complete GROUP B STREP SCREEN 10/29 1454 Active INFLUENZA A&B ANTIGENS 10/29 1454 Complete CARDIAC ENZYMES 10/29 1454 Complete ELECTROCARDIOGRAM REQUEST 10/29 1451 Active 12 LEAD EKG-BESSON (INITIAL) 10/29 1450 Active CHEST-PORTABLE 10/29 1426 Active IV SALINE LOCK 10/29 1426 Active CULTURE, BLOOD 10/29 1426 Active URINALYSIS/COMPLETE 10/29 142 Active LACTIC ACID 10/29 142 Complete CBC WITH AUTO DIFF 10/29 142 Complete CHEM 12 PROFILE 10/29 142 Complete XRAY/CT/US XRAY/CT/US CT head, abdomen, pelvis CT interpretation by discussed w/radiologist Time results known: 16[address] of head shows nothing acute. CT of Abd. and pelvis shows a markedly dilated stomach with fluid and small bowel dilatation with ? transition point in RLQ consistent with a partial SBO Departure Departure Disposition DC/XFER from ER to [facility] Clinical Impression Primary Impression: Partial small bowel obstruction Secondary Impressions: Churg-Edgardo syndrome, Dehydration, Rhabdomyolysis due to statin therapy Condition STABLE Additional Instructions I called and spoke with Dr. Kaur Gen. Surgery on-call and she has accepted the patient to the ED Discharge Counseling Counseled pt/family regarding diagnosis, test results, follow up needs ED Critical Care Critical Care No If Critical Care minutes are documented, the time involved in the performance of seperately reportable procedures was not counted toward critical care time documented. I directly delivered medical care to this critically ill and/or injured patient. Timely evaluation and treatment was necessary to address the significant organ system(s) dysfunction present in this patient. at 0009
[2016-10-29] MEDS ORDERED: ELIQUIS5 MG PO (16:12)
[2016-10-29] MEDS ORDERED: LIPITOR40 MG PO (16:13)
[2016-10-29] MEDS ORDERED: MELATIN1 TAB PO (16:14)
[2016-10-29] MEDS ORDERED: PROTONIX 40MG T40 MG PO (16:15)
[2016-10-29] MEDS ORDERED: MICONAZOLE45 GM/TUB1 TP (16:15)
[2016-10-29] MEDS ORDERED: TRANSDERM TD (16:16)
--- NOTE | 2016-10-29 16:16 | RADIOLOGY REPORT PS360 ---
CT HEAD W/O CONTRAST COMPARISON: CT scan of brain noncontrast 10/14/2016 HISTORY: Dizziness and weakness TECHNIQUE: With axial scans obtained from base skull to the vertex and were performed without IV contrast. FINDINGS: The base of skull is normal. The ventricular system appears normal. There is no ischemic infarct or bleed and there are no extra-axial fluid collections. Bony calvarium appears intact. Oblique films of the cortical sulci are mildly prominent. There may be some mild chronic ischemic white matter changes. IMPRESSION: Findings of mild age-appropriate cortical atrophy and mild chronic white matter changes, no acute intracranial pathology noted.
--- NOTE | 2016-10-29 16:28 | RADIOLOGY REPORT PS360 ---
CT ABD PELVIS W/O CONTRAST COMPARISON: CT scan abdomen pelvis 10/20/2016 HISTORY: Normal pain and distention TECHNIQUE: Multiple axial scans obtained from hemidiaphragms the pelvic floor and were performed with IV contrast only. Sagittal coronal reformats were evaluated as well. FINDINGS: Scans the lower chest show clear lower lung hardwick. There is generalized cardio megaly. The stomach is massively distended and there is a gastrostomy feeding tube in place. Fluid and gas are seen within the stomach. The liver and spleen and pancreas are grossly normal. There has been a previous cholecystectomy. The adrenal glands are normal. The kidneys are normal size and show symmetrical function and there are tiny nontracking calculi in each kidney. Small bowel is markedly distended proximally and appears be a probable transition zone in the right lower quadrant probably secondary to adhesions. There are surgical clips in the lower pelvis apparently is anastomosis in the rectosigmoid region.. Urinary bladder is well filled with contrast and is grossly normal. There has been a previous hysterectomy. There are no findings to suggest appendicitis. There is been previous fusion lower lumbar spine. IMPRESSION: Marked gastric distention as noted previously half is secondary some degree of scarring in the antrum from previous peptic disease. 2. Persistent markedly dilated fluid-filled small bowel loops in a more so than on the previous study and again showing what appears be a transition zone in the right lower quadrant probably secondary to effusions in this patient has a history of previous resection. The findings suggest a least a partial mechanical small bowel obstruction.
[2016-10-29 20:45] VITALS: BP 115/55
--- NOTE | 2016-10-30 08:25 | RADIOLOGY REPORT PS360 ---
CHEST-PORTABLE COMPARISON: PA and lateral chest 08/17/2016 HISTORY: Generalized weakness, fever TECHNIQUE: Portable upright chest FINDINGS: The lung hardwick are fairly well-expanded and appear clear of infiltrate. There is vlco-rb-xtmocqtm generalized cardio megaly however is no evidence of failure. The cardiac pacemaker is again noted with dual chamber electrodes both in good position. There Is no definite pleural fluid. IMPRESSION: Cardio megaly, no acute chest pathology noted
--- NOTE | 2016-10-30 08:25 | RADIOLOGY REPORT PS360 ---
CHEST-PORTABLE COMPARISON: PA and lateral chest 08/17/2016 HISTORY: Generalized weakness, fever TECHNIQUE: Portable upright chest FINDINGS: The lung hardwick are fairly well-expanded and appear clear of infiltrate. There is nter-xf-wlcirdrh generalized cardio megaly however is no evidence of failure. The cardiac pacemaker is again noted with dual chamber electrodes both in good position. There Is no definite pleural fluid. IMPRESSION: Cardio megaly, no acute chest pathology noted
== END 2016-10-29 20:47 | disposition short-term general hospital (02) ==
LOC: ER 14:15
PROVIDERS: General Practice
DX: K56.69 Other intestinal obstruction (principal); M30.1 Polyarteritis with lung involvement [Churg-Strauss]; M62.82 Rhabdomyolysis; E86.0 Dehydration

== ENCOUNTER → 2017-01-24 | Outpatient (CLI) | payer MEDICARE ==
[~2017-01-24] MED LIST changes: +ELIQUIS5 MG PO; +MELATIN1 TAB PO; +MICONAZOLE45 GM/TUB1 TP; +PROTONIX 40MG T40 MG PO; +TRANSDERM TD
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
== END ==
LOC: RAD 11:49
DX: M54.5 Low back pain (principal)

== ENCOUNTER 2017-02-24 21:18 | Observation (INO) | payer MEDICARE ==
[~2017-02-24] VITALS: Ht 165.1 cm; Wt 81.7 kg
[~2017-02-24 21:18] MED LIST changes: +FENTANYL 550 MCG/EAC TD
[2017-02-24 21:20] VITALS: BP 137/76
[2017-02-24] MEDS ORDERED: FUROSEMIDE 40MG40 M1 PO (21:25)
--- NOTE | 2017-02-24 22:04 | Emergency Room Report ---
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 N Clinical Suspician of Infection? N Mental Status: 2 - Mildly Altered Sepsis Risk:Low Sepsis Risk Have you (or family members/close friends) recently traveled outside the [place]? N If Yes, where/when: Have you had exposure to infectious disease within the past month? N TB? Other? Specify: Source patient, RN notes reviewed, family, old records Exam Limitations no limitations Comment pt with hx of change in mental status this afternoon with confusion and no fever or trauma and has hx of chronic pain and had g tube removed today Cardiac Chest Pain Chest pain indicative of cardiac No Timing/Duration this evening Severity moderate ALLERGIES Coded Allergies: amitriptyline (From Elavil) (Severe, U-[id number]/THROAT; SEIZURES 07/30/15) chlorpromazine (From Thorazine) (Severe, SEIZURES 07/30/15) dichloralphenazone (From Midrin) (Severe, Y-[id number]-NDHU/THROAT 07/30/15) isometheptene (From Midrin) (Severe, U-[id number]-FVDG/THROAT 07/30/15) prochlorperazine (From Compazine) (Severe, SEIZURES 07/30/15) acetaminophen (From MIDRIN) (Intermediate, 10/14/16) adhesive tape (Intermediate, I-RASH 07/30/15) aspirin (Intermediate, "COLD SWEATS", N/V 07/30/15) Iodinated Contrast- Oral and IV Dye (IODINATED CONTRAST MEDIA - ORAL AND) (10/29) Sulfa (Sulfonamide Antibiotics) ("CONTRAINDICATED WITH ASTHMA" 07/30/15) cyclobenzaprine (From FLEXERIL) (10/29/16) duloxetine (10/29/16) trimethoprim (10/29/16) Beta-Blockers (Beta-Adrenergic Bloc (Severe, "MAKES ASTHMA WORSE" 07/30/15) caffeine (From Cafergot) (Mild, NA-NAUSEA 07/30/15) ergotamine (From Cafergot) (Mild, NA-NAUSEA 07/30/15) pregabalin (From Lyrica) (Mild, "TOO SEDATED" 07/30/15) Home Medications Reported Medications INSULIN ASPART (Novolog) 0 SC ACHS LISINOPRIL/HYDROCHLOROTHIAZIDE (Lisinopril-Hctz 20-25 MG Tab) 1 TAB PO DAILY #90 TAB Bisoprolol Fumarate 10 MG PO DAILY #90 TAB OXYCODONE HCL (Roxicodone) 10 MG PO PRN PRN PAIN Fentanyl (Fentanyl 25MCG Patch) 50 MCG TD Q72H ALPRAZOLAM (Alprazolam 0.25MG) 0.25 MG PO QID Gabapentin (Neurontin) 800 MG PO QID Polyethylene Glycol 3350 (Miralax) 17 GM PO DAILY PRN CONSTIPATION PROMETHAZINE HCL (Promethazine 25mg Tab) 12.5 MG PO Q4HP PRN N/V Apixaban (Eliquis) 5 MG PO BID Atorvastatin Calcium (Atorvastatin) 40 MG PO DAILY MELATONIN (Melatin) 1 TAB PO QHS Miconazole Nitrate (Miconazole 2% Cream 45GM) 1 WANDER TP BID Pantoprazole Sodium (Protonix 40MG TAB) 40 MG PO DAILY Scopolamine (Transderm-Scop) 0.33 MG TD Q3D Furosemide 40 MG PO PRN PRN fluid #30 History Medical History General CAD? No Angina: Yes AK: No Hypertension? Yes Hyperlipidemia? Yes CHF? No DVT? No PE? No COPD? Yes Asthma? Yes Anemia? No GERD? No Gastric ulcers? No GI Bleed? Yes Hernia? No Thyroid Problems? No Hypothyroidism? No CVA? Yes Seizures? No Diabetes? Yes Insulin Dependent: Yes Insulin Pump: No Home FSBS? Yes Renal Insuffiency? Yes End Stage Renal Disease? No UTI? No Stones? Yes BPH? No GB Disease: Yes Nephritic Syndrome? No Asplenia? No Hepatitis? No Sickle Cell Disease? No Arthritis? Yes Migraines? No Cataracts? No Glaucoma? No MRSA? Yes HIV? No TB? Yes Anxiety? Yes Depression? Yes Cancer? No More? Yes Additional hx: MULTIPLE STROKES CHURG/MEETA ANEURYSM Immunization Hx DT/Tetanus 5-10 YRS Flu [id number] Flu Season Pneumonia Received In Past Surgical Hx Previous Surgery?Y APPY; CHRISTINE ABD CYST/TUMOR REMOVAL Renal R SHOULDER RECONSTRUCTION LAP ABAD Orthopedic CERVICAL DISC LOWER BACK SURGERY PACEMAKER SCHURG- EDGARDO VASCULITIS BACK SURGERY CARDIAC ABLATION COLONOSCOPY COLON RESECTION LEFT EYE Family History Family Hx Diabetes Yes CAD Yes Hypertension Yes Hyperlipidemia Yes Cancer Yes TB Yes Social History Smoking Hx Smoker: Never Smoker Tobacco: No Type Cigarettes Packs/day N/A Alcohol Alcohol: No Drugs none Review of Systems All Other Systems Reviewed and Negative Constitutional denies fever Eyes denies drainage ENT denies: ear discharge, epistaxis, throat pain. Respiratory denies cough, denies shortness of breath, denies wheezing Cardiovascular denies chest pain, denies syncope Gastrointestinal denies abdominal pain, denies diarrhea, denies vomiting Genitourinary denies: dysuria, frequency, hesitancy, hematuria. Musculoskeletal denies back pain, denies joint pain, denies joint swelling, denies neck pain Skin denies rash Psychiatric/Neurological denies headache, denies seizure Physical Exam Vital Signs Vital Signs Date Time Temp Pulse Resp B/P Pulse O2 O2 Flow FiO2 Ox Delivery Rate 02/24 2224 88 20 121/67 95 02/24 2120 86 20 137/76 95 - WBC >12,000 or <4,000 or 10% bands? 2 or more SIRS Criteria Met? B/P:121/67 MAP:96 Creatinine >2.0? UA output<0.5ml/kg/hr for 2 hrs? Platelet count >100,000? Lactate >2.0mmol/1? INR >1.2 or PTT > than 60 sec? Evidence of Organ Dysfunction? Provider documented clinical suspician of infection? N Sepsis Criteria Count: 1 Sepsis Risk: Low Sepsis Risk General Appearance no apparent distress Eye Exam - bilateral eye PERRL, bilateral eye EOMI Ear, Nose, Throat normal ENT inspection Neck supple, no def bruit Respiratory Status No: respiratory distress. Lung Sounds bilateral: lungs clear. 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 Yes NIH STROKE SCORE NIH STROKE SCORE Response Value 1a.Level of Consciousness ALERT 0 1b.LOC Questions ANSWERS BOTH CORRECTLY 0 1c.LOC Commands OBEYS BOTH CORRECTLY 0 2 .Best Gaze NORMAL 0 3 .Visual NO VISUAL LOSS 0 4 .Facial Palsy NORMAL 0 5a.Motor Arm Left NO DRIFT 0 5b.Motor Arm Right NO DRIFT 0 6a.Motor Leg Left NO DRIFT 0 6b.Motor Leg Right NO DRIFT 0 7 .Limb Ataxia ABSENT 0 8 .Sensory NORMAL 0 9 .Best Language NO APHASIA 0 10.Dysarthria NORMAL ARTICULATION 0 ED.NIH11 NO NEGLECT 0 Total 0 Treatment Consideration t-PA ordered? No Exit section? Yes Medical Decision Making LABS/Meds/Orders Pt receiving controlled substance in ED? No Results/Orders Laboratory Tests 02/24/17 2305: Glucose Cancelled 02/24/17 2230: Urine Color YELLOW, Urine Appearance CLEAR, Urine pH 6.0, Ur Specific [place] 1.010, Urine Protein NEGATIVE, Urine Ketones NEGATIVE, Urine Blood NEGATIVE, Urine Nitrate NEGATIVE, Urine Bilirubin NEGATIVE, Urine Urobilinogen 0.2, Ur Leukocyte Esterase 1+ H, Urine WBC 10-20, Urine Yeast 2+, Urine Glucose 2+ H 02/24/17 2210: Sodium 136, Potassium 5.1, Chloride 100, Carbon Dioxide 27, BUN 37 H, Creatinine 2.0 H, Estimated Creat Clear 33 L, Estimated GFR (MDRD) 25 L, Glucose 419 H, Calcium 8.7, Creatine Kinase 246 H, CK-MB (CK-2) Rel Index 0.9, CK and CKMB Interp 2.1, Troponin I < 0.02, PT 10.7, INR 0.99, WBC 6.5, RBC 3.77 L, Hgb 11.6 L, Hct 35.9 L, MCV 95.1, RDW 14.5, Plt Count 136 L, MPV 9.1, Gran % 49.0, Gran # 3.2, Lymphocytes % 39.8, Monocytes % 5.2, Eosinophils % 5.8, Basophils % 0.3, Lymphocytes # 2.6, Monocytes # 0.3, Eosinophils # 0.4, Basophils # 0.0, PUBS MCHC 32.2, MCH 30.6 Current Medication Orders Sig/Susan Start time Last Medication Dose Route Stop Time Status Admin Ceftriaxone Sodium 1 GM ONCE ONE 02/24 2345 DC 02/24 Sodium Chloride 50 ML IV 02/25 0014 2348 Ceftriaxone Sodium 0 .STK-MED ONE 02/24 2344 DC IV Sodium Chloride 10 ML PRN PRN 02/24 2215 AC IV 02/25 220 Sodium Chloride 10 ML PRN PRN 02/24 2215 AC IV 02/25 220 Orders Procedure Date/time Status DIET-NOTHING BY MOUTH 02/25 B Active Decision to admit 02/24 234 Active FSBS REQUEST BY CARE AREA 02/24 2331 Active CULTURE, URINE 02/24 2230 Active IV SALINE LOCK 02/25 2204 Active URINALYSIS/COMPLETE 02/25 2204 Complete PROTHROMBIN TIME 02/25 2204 Complete CBC WITH AUTO DIFF 02/25 2204 Complete CARDIAC ENZYMES 02/25 2204 Complete BASIC METABOLIC PROFILE 02/[address] HEAD REQ 02/[address] HEAD W/O CONTRAST 02/24 2123 Active XRAY/CT/US XRAY/CT/US CT head CT interpretation by discussed w/radiologist Time results known: 2202 CT Results abnormal (no bleed) Departure Departure Time of Disposition 234 Disposition Still a Patient Clinical Impression Primary Impression: Acute delirium Secondary Impressions: IDDM (insulin dependent diabetes mellitus) Renal insufficiency UTI (urinary tract infection) Qualifiers: Urinary tract infection type: acute cystitis Hematuria presence: without hematuria Qualified Code: N30.00 - Acute cystitis without hematuria Condition STABLE Referrals Lj Ballesteros MD (Family) ED Critical Care Critical Care No at [id number]
--- NOTE | 2017-02-24 22:04 | Emergency Room Report ---
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 N Clinical Suspician of Infection? N Mental Status: 2 - Mildly Altered Sepsis Risk:Low Sepsis Risk Have you (or family members/close friends) recently traveled outside the [place]? N If Yes, where/when: Have you had exposure to infectious disease within the past month? N TB? Other? Specify: Source patient, RN notes reviewed, family, old records Exam Limitations no limitations Comment pt with hx of change in mental status this afternoon with confusion and no fever or trauma and has hx of chronic pain and had g tube removed today Cardiac Chest Pain Chest pain indicative of cardiac No Timing/Duration this evening Severity moderate ALLERGIES Coded Allergies: amitriptyline (From Elavil) (Severe, G-[id number]/THROAT; SEIZURES 07/30/15) chlorpromazine (From Thorazine) (Severe, SEIZURES 07/30/15) dichloralphenazone (From Midrin) (Severe, U-LRNKSZ-DLUZ/THROAT 07/30/15) isometheptene (From Midrin) (Severe, W-OVMICW-GHMQ/THROAT 07/30/15) prochlorperazine (From Compazine) (Severe, SEIZURES 07/30/15) acetaminophen (From MIDRIN) (Intermediate, 10/14/16) adhesive tape (Intermediate, I-RASH 07/30/15) aspirin (Intermediate, "COLD SWEATS", N/V 07/30/15) Iodinated Contrast- Oral and IV Dye (IODINATED CONTRAST MEDIA - ORAL AND) (10/29) Sulfa (Sulfonamide Antibiotics) ("CONTRAINDICATED WITH ASTHMA" 07/30/15) cyclobenzaprine (From FLEXERIL) (10/29/16) duloxetine (10/29/16) trimethoprim (10/29/16) Beta-Blockers (Beta-Adrenergic Bloc (Severe, "MAKES ASTHMA WORSE" 07/30/15) caffeine (From Cafergot) (Mild, NA-NAUSEA 07/30/15) ergotamine (From Cafergot) (Mild, NA-NAUSEA 07/30/15) pregabalin (From Lyrica) (Mild, "TOO SEDATED" 07/30/15) Home Medications Reported Medications INSULIN ASPART (Novolog) 0 SC ACHS LISINOPRIL/HYDROCHLOROTHIAZIDE (Lisinopril-Hctz 20-25 MG Tab) 1 TAB PO DAILY #90 TAB Bisoprolol Fumarate 10 MG PO DAILY #90 TAB OXYCODONE HCL (Roxicodone) 10 MG PO PRN PRN PAIN Fentanyl (Fentanyl 25MCG Patch) 50 MCG TD Q72H ALPRAZOLAM (Alprazolam 0.25MG) 0.25 MG PO QID Gabapentin (Neurontin) 800 MG PO QID Polyethylene Glycol 3350 (Miralax) 17 GM PO DAILY PRN CONSTIPATION PROMETHAZINE HCL (Promethazine 25mg Tab) 12.5 MG PO Q4HP PRN N/V Apixaban (Eliquis) 5 MG PO BID Atorvastatin Calcium (Atorvastatin) 40 MG PO DAILY MELATONIN (Melatin) 1 TAB PO QHS Miconazole Nitrate (Miconazole 2% Cream 45GM) 1 WANDER TP BID Pantoprazole Sodium (Protonix 40MG TAB) 40 MG PO DAILY Scopolamine (Transderm-Scop) 0.33 MG TD Q3D Furosemide 40 MG PO PRN PRN fluid #30 History Medical History General CAD? No Angina: Yes MS: No Hypertension? Yes Hyperlipidemia? Yes CHF? No DVT? No PE? No COPD? Yes Asthma? Yes Anemia? No GERD? No Gastric ulcers? No GI Bleed? Yes Hernia? No Thyroid Problems? No Hypothyroidism? No CVA? Yes Seizures? No Diabetes? Yes Insulin Dependent: Yes Insulin Pump: No Home FSBS? Yes Renal Insuffiency? Yes End Stage Renal Disease? No UTI? No Stones? Yes BPH? No GB Disease: Yes Nephritic Syndrome? No Asplenia? No Hepatitis? No Sickle Cell Disease? No Arthritis? Yes Migraines? No Cataracts? No Glaucoma? No MRSA? Yes HIV? No TB? Yes Anxiety? Yes Depression? Yes Cancer? No More? Yes Additional hx: MULTIPLE STROKES CHURG/MEETA ANEURYSM Immunization Hx DT/Tetanus 5-10 YRS Flu 2502-2713 Flu Season Pneumonia Received In Past Surgical Hx Previous Surgery?Y APPY; CHRISTINE ABD CYST/TUMOR REMOVAL Renal R SHOULDER RECONSTRUCTION LAP ABAD Orthopedic CERVICAL DISC LOWER BACK SURGERY PACEMAKER SCHURG- EDGARDO VASCULITIS BACK SURGERY CARDIAC ABLATION COLONOSCOPY COLON RESECTION LEFT EYE Family History Family Hx Diabetes Yes CAD Yes Hypertension Yes Hyperlipidemia Yes Cancer Yes TB Yes Social History Smoking Hx Smoker: Never Smoker Tobacco: No Type Cigarettes Packs/day N/A Alcohol Alcohol: No Drugs none Review of Systems All Other Systems Reviewed and Negative Constitutional denies fever Eyes denies drainage ENT denies: ear discharge, epistaxis, throat pain. Respiratory denies cough, denies shortness of breath, denies wheezing Cardiovascular denies chest pain, denies syncope Gastrointestinal denies abdominal pain, denies diarrhea, denies vomiting Genitourinary denies: dysuria, frequency, hesitancy, hematuria. Musculoskeletal denies back pain, denies joint pain, denies joint swelling, denies neck pain Skin denies rash Psychiatric/Neurological denies headache, denies seizure Physical Exam Vital Signs Vital Signs Date Time Temp Pulse Resp B/P Pulse O2 O2 Flow FiO2 Ox Delivery Rate 02/24 2224 88 20 121/67 95 02/24 2120 86 20 137/76 95 - WBC >12,000 or <4,000 or 10% bands? 2 or more SIRS Criteria Met? B/P:121/67 MAP:96 Creatinine >2.0? UA output<0.5ml/kg/hr for 2 hrs? Platelet count >100,000? Lactate >2.0mmol/1? INR >1.2 or PTT > than 60 sec? Evidence of Organ Dysfunction? Provider documented clinical suspician of infection? N Sepsis Criteria Count: 1 Sepsis Risk: Low Sepsis Risk General Appearance no apparent distress Eye Exam - bilateral eye PERRL, bilateral eye EOMI Ear, Nose, Throat normal ENT inspection Neck supple, no def bruit Respiratory Status No: respiratory distress. Lung Sounds bilateral: lungs clear. 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 Yes NIH STROKE SCORE NIH STROKE SCORE Response Value 1a.Level of Consciousness ALERT 0 1b.LOC Questions ANSWERS BOTH CORRECTLY 0 1c.LOC Commands OBEYS BOTH CORRECTLY 0 2 .Best Gaze NORMAL 0 3 .Visual NO VISUAL LOSS 0 4 .Facial Palsy NORMAL 0 5a.Motor Arm Left NO DRIFT 0 5b.Motor Arm Right NO DRIFT 0 6a.Motor Leg Left NO DRIFT 0 6b.Motor Leg Right NO DRIFT 0 7 .Limb Ataxia ABSENT 0 8 .Sensory NORMAL 0 9 .Best Language NO APHASIA 0 10.Dysarthria NORMAL ARTICULATION 0 ED.NIH11 NO NEGLECT 0 Total 0 Treatment Consideration t-PA ordered? No Exit section? Yes Medical Decision Making LABS/Meds/Orders Pt receiving controlled substance in ED? No Results/Orders Laboratory Tests 02/24/17 2305: Glucose Cancelled 02/24/17 2230: Urine Color YELLOW, Urine Appearance CLEAR, Urine pH 6.0, Ur Specific [place] 1.010, Urine Protein NEGATIVE, Urine Ketones NEGATIVE, Urine Blood NEGATIVE, Urine Nitrate NEGATIVE, Urine Bilirubin NEGATIVE, Urine Urobilinogen 0.2, Ur Leukocyte Esterase 1+ H, Urine WBC 10-20, Urine Yeast 2+, Urine Glucose 2+ H 02/24/17 2210: Sodium 136, Potassium 5.1, Chloride 100, Carbon Dioxide 27, BUN 37 H, Creatinine 2.0 H, Estimated Creat Clear 33 L, Estimated GFR (MDRD) 25 L, Glucose 419 H, Calcium 8.7, Creatine Kinase 246 H, CK-MB (CK-2) Rel Index 0.9, CK and CKMB Interp 2.1, Troponin I < 0.02, PT 10.7, INR 0.99, WBC 6.5, RBC 3.77 L, Hgb 11.6 L, Hct 35.9 L, MCV 95.1, RDW 14.5, Plt Count 136 L, MPV 9.1, Gran % 49.0, Gran # 3.2, Lymphocytes % 39.8, Monocytes % 5.2, Eosinophils % 5.8, Basophils % 0.3, Lymphocytes # 2.6, Monocytes # 0.3, Eosinophils # 0.4, Basophils # 0.0, PUBS MCHC 32.2, MCH 30.6 Current Medication Orders Sig/Susan Start time Last Medication Dose Route Stop Time Status Admin Ceftriaxone Sodium 1 GM ONCE ONE 02/24 2345 DC 02/24 Sodium Chloride 50 ML IV 02/25 0014 2348 Ceftriaxone Sodium 0 .STK-MED ONE 02/24 2344 DC IV Sodium Chloride 10 ML PRN PRN 02/24 2215 AC IV 02/25 220 Sodium Chloride 10 ML PRN PRN 02/24 2215 AC IV 02/25 220 Orders Procedure Date/time Status DIET-NOTHING BY MOUTH 02/25 B Active Decision to admit 02/24 234 Active FSBS REQUEST BY CARE AREA 02/24 2331 Active CULTURE, URINE 02/24 2230 Active IV SALINE LOCK 02/25 2204 Active URINALYSIS/COMPLETE 02/25 2204 Complete PROTHROMBIN TIME 02/25 2204 Complete CBC WITH AUTO DIFF 02/25 2204 Complete CARDIAC ENZYMES 02/25 2204 Complete BASIC METABOLIC PROFILE 02/[address] HEAD REQ 02/[address] HEAD W/O CONTRAST 02/24 2123 Active XRAY/CT/US XRAY/CT/US CT head CT interpretation by discussed w/radiologist Time results known: 2202 CT Results abnormal (no bleed) Departure Departure Time of Disposition 234 Disposition Still a Patient Clinical Impression Primary Impression: Acute delirium Secondary Impressions: IDDM (insulin dependent diabetes mellitus) Renal insufficiency UTI (urinary tract infection) Qualifiers: Urinary tract infection type: acute cystitis Hematuria presence: without hematuria Qualified Code: N30.00 - Acute cystitis without hematuria Condition STABLE Referrals Lj Ballesteros MD (Family) ED Critical Care Critical Care No at 0041
[2017-02-24 22:26] LABS: HEMOGLOBIN 11.6 g/dL (12.2-16.2); LYMPH # 2.6 K/mm3 (0.7-4.5); LYMPH % 39.8 % (10-50.0)
[2017-02-24 22:51] LABS: BUN 37 mg/dL (7-18)
[2017-02-24 22:54] LABS: GFR (ESTIMATED) 25 ML/MIN (59-)
[2017-02-24 23:24] LABS: URINE BILIRUBIN - DIPSTICK NEGATIVE (NEG); URINE BLOOD NEGATIVE (NEG)
[2017-02-25] VITALS (8 sets, daily range): BP systolic 111–129; BP diastolic 59–77
[2017-02-25] MEDS ORDERED: LISINOPRIL 10MG10 MG PO (01:42)
[2017-02-25] MEDS ORDERED: POTASSIUM CHLO20 ME2 PO (01:47)
[2017-02-25 06:20] LABS: HEMOGLOBIN 10.7 g/dL (12.2-16.2); LYMPH # 2.5 K/mm3 (0.7-4.5); LYMPH % 44.5 % (10-50.0)
--- NOTE | 2017-02-25 06:28 | HISTORY AND PHYSICAL REPORT ---
Demographics: Admit date: 02/24/17 Chief complaint: Mental status changes PRIMARY DIAGNOSIS: DELIRIUM Allergies: Coded Allergies: amitriptyline (From Elavil) (Severe, Z-[id number]-BTXX/THROAT; SEIZURES 07/30/15) chlorpromazine (From Thorazine) (Severe, SEIZURES 07/30/15) dichloralphenazone (From Midrin) (Severe, R-TESRXD-ACAH/THROAT 07/30/15) isometheptene (From Midrin) (Severe, L-THQFSF-YKUX/THROAT 07/30/15) prochlorperazine (From Compazine) (Severe, SEIZURES 07/30/15) acetaminophen (From MIDRIN) (Intermediate, 10/14/16) adhesive tape (Intermediate, I-RASH 07/30/15) aspirin (Intermediate, "COLD SWEATS", N/V 07/30/15) Iodinated Contrast- Oral and IV Dye (IODINATED CONTRAST MEDIA - ORAL AND) (10/29) Sulfa (Sulfonamide Antibiotics) ("CONTRAINDICATED WITH ASTHMA" 07/30/15) cyclobenzaprine (From FLEXERIL) (10/29/16) duloxetine (10/29/16) trimethoprim (10/29/16) Beta-Blockers (Beta-Adrenergic Bloc (Severe, "MAKES ASTHMA WORSE" 07/30/15) caffeine (From Cafergot) (Mild, NA-NAUSEA 07/30/15) ergotamine (From Cafergot) (Mild, NA-NAUSEA 07/30/15) pregabalin (From Lyrica) (Mild, "TOO SEDATED" 07/30/15) History of present illness: History of present illness: 71-year-old white female with history of multiple strokes, 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 She has been subjected to G-tube placement for nutritional issues but apparently has done well with this and was at [facility] yesterday and had her G-tube removed without problems. She did well on the RIGHT home but once she got home became somewhat confused and was brought to the hospital. Initial thought was that she had another stroke however CT scan showed no evidence of hemorrhage and no change management administrator baseline. She was found to have a urinary tract infection. She has a history of mental status changes with UTIs and was admitted to hospital for IV antibiotics given her significant comorbidities. This morning she feels better, is a little bit more alert, her is pleased with her improvement. Past medical history: Family HX Diabetes Yes CAD Yes Hypertension Yes Hyperlipidemia Yes Cancer Yes TB Yes Immunization HX DT/Tetanus 5-10 YRS Flu [id number] Flu Season Pneumonia Received In Past TB Test in last year No General CAD? No Angina: Yes OR: No Hypertension? Yes Hyperlipidemia? Yes CHF? No DVT? No PE? No COPD? Yes Asthma? Yes Anemia? No GERD? No Gastric ulcers? No GI Bleed? Yes Hernia? No Thyroid Problems? No Hypothyroidism? No CVA? Yes Seizures? No Diabetes? Yes Insulin Dependent: Yes Insulin Pump: No Home FSBS? Yes Renal Insuffiency? Yes UTI? No Stones? Yes BPH? No GB Disease: Yes Nephritic Syndrome? No Asplenia? No Hepatitis? No Sickle Cell Disease? No Arthritis? Yes Migraines? No Cataracts? No Glaucoma? No MRSA? Yes HIV? No TB? Yes Anxiety? Yes Depression? Yes Cancer? No More? Yes Additional hx: MULTIPLE STROKES CHURG/MEETA ANEURYSM Past Surgical HX Previous Surgery?Y APPY; CHRISTINE ABD CYST/TUMOR REMOVAL Renal R SHOULDER RECONSTRUCTION LAP ABAD Orthopedic CERVICAL DISC LOWER BACK SURGERY PACEMAKER SCHURG- EDGARDO VASCULITIS BACK SURGERY CARDIAC ABLATION COLONOSCOPY COLON RESECTION LEFT EYE Current home meds: Reported Medications INSULIN ASPART (Novolog) 0 SC ACHS Bisoprolol Fumarate 10 MG PO DAILY #90 TAB OXYCODONE HCL (Roxicodone) 10 MG PO PRN PRN PAIN LISINOPRIL (Lisinopril) 10 MG PO DAILY POTASSIUM CHL (Potassium Chloride) 20 MEQ PO BID Fentanyl (Fentanyl 25MCG Patch) 50 MCG TD Q72H ALPRAZOLAM (Alprazolam 0.25MG) 0.25 MG PO QID Gabapentin (Neurontin) 800 MG PO QID Polyethylene Glycol 3350 (Miralax) 17 GM PO DAILY PRN CONSTIPATION Apixaban (Eliquis) 5 MG PO BID Atorvastatin Calcium (Atorvastatin) 40 MG PO DAILY MELATONIN (Melatin) 1 TAB PO QHS Miconazole Nitrate (Miconazole 2% Cream 45GM) 1 WANDER TP BID Pantoprazole Sodium (Protonix 40MG TAB) 40 MG PO DAILY Furosemide 40 MG PO PRN PRN fluid #30 Social Hx: Smoking HX Tobacco No Type N/A Packs/day N/A Are you/the child exposed to second-hand smoke: No Alcohol Alcohol: No Hx of Drug Use Drug Use? No Patien't marital status is Patient's support system is excellent Review of systems: Constitutional fever, malaise, weakness. Respiratory No: no symptoms reported. Cardiovascular No no symptoms reported Gastrointestinal/Abdominal see HPI Genitourinary No: no symptoms reported. Musculoskeletal No: no symptoms reported. Neurological Yes: see HPI. Exam: Lab data for last 24 hours: Laboratory Tests 02/25/17 0605: WBC 5.6, RBC 3.57 L, Hgb 10.7 L, Hct 33.7 L, MCV 94.6, RDW 14.6, Plt Count 120 L, MPV 8.8, Gran % 45.0, Gran # 2.5, Lymphocytes % 44.5, Monocytes % 4.7, Eosinophils % 5.5, Basophils % 0.2, Lymphocytes # 2.5, Monocytes # 0.3, Eosinophils # 0.3, Basophils # 0.0, PUBS MCHC 31.8, MCH 30.1 02/24/17 2230: Urine Color YELLOW, Urine Appearance CLEAR, Urine pH 6.0, Ur Specific [place] 1.010, Urine Protein NEGATIVE, Urine Ketones NEGATIVE, Urine Blood NEGATIVE, Urine Nitrate NEGATIVE, Urine Bilirubin NEGATIVE, Urine Urobilinogen 0.2, Ur Leukocyte Esterase 1+ H, Urine WBC 10-20, Urine Yeast 2+, Urine Glucose 2+ H 02/24/17 2210: Sodium 136, Potassium 5.1, Chloride 100, Carbon Dioxide 27, BUN 37 H, Creatinine 2.0 H, Estimated Creat Clear 33 L, Estimated GFR (MDRD) 25 L, Glucose 419 H, Calcium 8.7, Creatine Kinase 246 H, CK-MB (CK-2) Rel Index 0.9, CK and CKMB Interp 2.1, Troponin I < 0.02, PT 10.7, INR 0.99, WBC 6.5, RBC 3.77 L, Hgb 11.6 L, Hct 35.9 L, MCV 95.1, RDW 14.5, Plt Count 136 L, MPV 9.1, Gran % 49.0, Gran # 3.2, Lymphocytes % 39.8, Monocytes % 5.2, Eosinophils % 5.8, Basophils % 0.3, Lymphocytes # 2.6, Monocytes # 0.3, Eosinophils # 0.4, Basophils # 0.0, PUBS MCHC 32.2, MCH 30.6 Microbiology 02/24 2230 URINE CATH: Urine Culture - RECD Admission vital signs: 1ST Vital Signs Result Date Time Pulse Ox 95 02/25 2120 B/P 137/76 02/25 2120 Pulse 86 02/25 2120 Resp 20 02/25 2120 Temp 99.0 02/25 0045 O2 Delivery ROOM AIR 02/25 0124 O2 Flow Rate 2 02/25 0145 Additional information: Patient is pleasant, alert, oriented 2. Lungs are clear, heart rate regular. Abdomen is soft, recent G-tube extraction site is somewhat tender but otherwise clear. Multiple surgical scars in her abdomen. She has right-sided weakness and hemiparesis. Plan: Problem List 1. Acute delirium 2. Churg-Edgardo syndrome 3. Urinary tract infection Plan: Given multiple comorbidities we will continue and hospital today until we have good culture data. Patient already feels better. Watch labs carefully tomorrow. at 0696
--- NOTE | 2017-02-25 06:28 | HISTORY AND PHYSICAL REPORT ---
Demographics: Admit date: 02/24/17 Chief complaint: Mental status changes PRIMARY DIAGNOSIS: DELIRIUM Allergies: Coded Allergies: amitriptyline (From Elavil) (Severe, O-LPODKG-TLSU/THROAT; SEIZURES 07/30/15) chlorpromazine (From Thorazine) (Severe, SEIZURES 07/30/15) dichloralphenazone (From Midrin) (Severe, V-CJRLWM-JXYA/THROAT 07/30/15) isometheptene (From Midrin) (Severe, H-PCWMIV-IWRE/THROAT 07/30/15) prochlorperazine (From Compazine) (Severe, SEIZURES 07/30/15) acetaminophen (From MIDRIN) (Intermediate, 10/14/16) adhesive tape (Intermediate, I-RASH 07/30/15) aspirin (Intermediate, "COLD SWEATS", N/V 07/30/15) Iodinated Contrast- Oral and IV Dye (IODINATED CONTRAST MEDIA - ORAL AND) (10/29) Sulfa (Sulfonamide Antibiotics) ("CONTRAINDICATED WITH ASTHMA" 07/30/15) cyclobenzaprine (From FLEXERIL) (10/29/16) duloxetine (10/29/16) trimethoprim (10/29/16) Beta-Blockers (Beta-Adrenergic Bloc (Severe, "MAKES ASTHMA WORSE" 07/30/15) caffeine (From Cafergot) (Mild, NA-NAUSEA 07/30/15) ergotamine (From Cafergot) (Mild, NA-NAUSEA 07/30/15) pregabalin (From Lyrica) (Mild, "TOO SEDATED" 07/30/15) History of present illness: History of present illness: 71-year-old white female with history of multiple strokes, 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 She has been subjected to G-tube placement for nutritional issues but apparently has done well with this and was at [facility] yesterday and had her G-tube removed without problems. She did well on the RIGHT home but once she got home became somewhat confused and was brought to the hospital. Initial thought was that she had another stroke however CT scan showed no evidence of hemorrhage and no liner roll changer baseline. She was found to have a urinary tract infection. She has a history of mental status changes with UTIs and was admitted to hospital for IV antibiotics given her significant comorbidities. This morning she feels better, is a little bit more alert, her is pleased with her improvement. Past medical history: Family HX Diabetes Yes CAD Yes Hypertension Yes Hyperlipidemia Yes Cancer Yes TB Yes Immunization HX DT/Tetanus 5-10 YRS Flu [id number] Flu Season Pneumonia Received In Past TB Test in last year No General CAD? No Angina: Yes SC: No Hypertension? Yes Hyperlipidemia? Yes CHF? No DVT? No PE? No COPD? Yes Asthma? Yes Anemia? No GERD? No Gastric ulcers? No GI Bleed? Yes Hernia? No Thyroid Problems? No Hypothyroidism? No CVA? Yes Seizures? No Diabetes? Yes Insulin Dependent: Yes Insulin Pump: No Home FSBS? Yes Renal Insuffiency? Yes UTI? No Stones? Yes BPH? No GB Disease: Yes Nephritic Syndrome? No Asplenia? No Hepatitis? No Sickle Cell Disease? No Arthritis? Yes Migraines? No Cataracts? No Glaucoma? No MRSA? Yes HIV? No TB? Yes Anxiety? Yes Depression? Yes Cancer? No More? Yes Additional hx: MULTIPLE STROKES CHURG/MEETA ANEURYSM Past Surgical HX Previous Surgery?Y APPY; CHRISTINE ABD CYST/TUMOR REMOVAL Renal R SHOULDER RECONSTRUCTION LAP ABAD Orthopedic CERVICAL DISC LOWER BACK SURGERY PACEMAKER SCHURG- EDGARDO VASCULITIS BACK SURGERY CARDIAC ABLATION COLONOSCOPY COLON RESECTION LEFT EYE Current home meds: Reported Medications INSULIN ASPART (Novolog) 0 SC ACHS Bisoprolol Fumarate 10 MG PO DAILY #90 TAB OXYCODONE HCL (Roxicodone) 10 MG PO PRN PRN PAIN LISINOPRIL (Lisinopril) 10 MG PO DAILY POTASSIUM CHL (Potassium Chloride) 20 MEQ PO BID Fentanyl (Fentanyl 25MCG Patch) 50 MCG TD Q72H ALPRAZOLAM (Alprazolam 0.25MG) 0.25 MG PO QID Gabapentin (Neurontin) 800 MG PO QID Polyethylene Glycol 3350 (Miralax) 17 GM PO DAILY PRN CONSTIPATION Apixaban (Eliquis) 5 MG PO BID Atorvastatin Calcium (Atorvastatin) 40 MG PO DAILY MELATONIN (Melatin) 1 TAB PO QHS Miconazole Nitrate (Miconazole 2% Cream 45GM) 1 WANDER TP BID Pantoprazole Sodium (Protonix 40MG TAB) 40 MG PO DAILY Furosemide 40 MG PO PRN PRN fluid #30 Social Hx: Smoking HX Tobacco No Type N/A Packs/day N/A Are you/the child exposed to second-hand smoke: No Alcohol Alcohol: No Hx of Drug Use Drug Use? No Patien't marital status is Patient's support system is excellent Review of systems: Constitutional fever, malaise, weakness. Respiratory No: no symptoms reported. Cardiovascular No no symptoms reported Gastrointestinal/Abdominal see HPI Genitourinary No: no symptoms reported. Musculoskeletal No: no symptoms reported. Neurological Yes: see HPI. Exam: Lab data for last 24 hours: Laboratory Tests 02/25/17 0605: WBC 5.6, RBC 3.57 L, Hgb 10.7 L, Hct 33.7 L, MCV 94.6, RDW 14.6, Plt Count 120 L, MPV 8.8, Gran % 45.0, Gran # 2.5, Lymphocytes % 44.5, Monocytes % 4.7, Eosinophils % 5.5, Basophils % 0.2, Lymphocytes # 2.5, Monocytes # 0.3, Eosinophils # 0.3, Basophils # 0.0, PUBS MCHC 31.8, MCH 30.1 02/24/17 2230: Urine Color YELLOW, Urine Appearance CLEAR, Urine pH 6.0, Ur Specific [place] 1.010, Urine Protein NEGATIVE, Urine Ketones NEGATIVE, Urine Blood NEGATIVE, Urine Nitrate NEGATIVE, Urine Bilirubin NEGATIVE, Urine Urobilinogen 0.2, Ur Leukocyte Esterase 1+ H, Urine WBC 10-20, Urine Yeast 2+, Urine Glucose 2+ H 02/24/17 2210: Sodium 136, Potassium 5.1, Chloride 100, Carbon Dioxide 27, BUN 37 H, Creatinine 2.0 H, Estimated Creat Clear 33 L, Estimated GFR (MDRD) 25 L, Glucose 419 H, Calcium 8.7, Creatine Kinase 246 H, CK-MB (CK-2) Rel Index 0.9, CK and CKMB Interp 2.1, Troponin I < 0.02, PT 10.7, INR 0.99, WBC 6.5, RBC 3.77 L, Hgb 11.6 L, Hct 35.9 L, MCV 95.1, RDW 14.5, Plt Count 136 L, MPV 9.1, Gran % 49.0, Gran # 3.2, Lymphocytes % 39.8, Monocytes % 5.2, Eosinophils % 5.8, Basophils % 0.3, Lymphocytes # 2.6, Monocytes # 0.3, Eosinophils # 0.4, Basophils # 0.0, PUBS MCHC 32.2, MCH 30.6 Microbiology 02/24 2230 URINE CATH: Urine Culture - RECD Admission vital signs: 1ST Vital Signs Result Date Time Pulse Ox 95 02/25 2120 B/P 137/76 02/25 2120 Pulse 86 02/25 2120 Resp 20 02/25 2120 Temp 99.0 02/25 0045 O2 Delivery ROOM AIR 02/25 0124 O2 Flow Rate 2 02/25 0145 Additional information: Patient is pleasant, alert, oriented 2. Lungs are clear, heart rate regular. Abdomen is soft, recent G-tube extraction site is somewhat tender but otherwise clear. Multiple surgical scars in her abdomen. She has right-sided weakness and hemiparesis. Plan: Problem List 1. Acute delirium 2. Churg-Edgardo syndrome 3. Urinary tract infection Plan: Given multiple comorbidities we will continue and hospital today until we have good culture data. Patient already feels better. Watch labs carefully tomorrow. at 0605
[2017-02-25 06:36] LABS: BUN 33 mg/dL (7-18)
[2017-02-25 06:40] LABS: GFR (ESTIMATED) 34 ML/MIN (59-)
--- NOTE | 2017-02-25 06:55 | RADIOLOGY REPORT PS360 ---
CT HEAD W/O CONTRAST HISTORY: Altered mental status, confusion, altered level of consciousness, disorientation, history of stroke AMS ORDERING PHYSICIAN: Maura Reynoso MD PATIENT AGE: 71 years COMPARISON: 02/17/2017 TECHNIQUE: Axial images obtained without contrast. Brain and bone windows reviewed. FINDINGS: No midline shift, mass effect, intracranial hemorrhage, hydrocephalus, or extra-axial fluid collection is evident. The calvarium has an unremarkable appearance. No mastoid effusion. The visualized paranasal sinuses are unremarkable. IMPRESSION: Negative CT head without contrast. No acute finding.
--- NOTE | 2017-02-25 09:19 | PHARMACY CLINIC NOTE ---
Patient Demographics Patient Demographics Admission date: 02/25/17 Date: 02/25/17 Time: 917 Allergies Coded Allergies: amitriptyline (From Elavil) (Severe, W-JDZHIJ-CCZX/THROAT; SEIZURES 07/30/15) chlorpromazine (From Thorazine) (Severe, SEIZURES 07/30/15) dichloralphenazone (From Midrin) (Severe, R-NBXEBU-NGJK/THROAT 07/30/15) isometheptene (From Midrin) (Severe, Y-GQDVTO-EYJZ/THROAT 07/30/15) prochlorperazine (From Compazine) (Severe, SEIZURES 07/30/15) acetaminophen (From MIDRIN) (Intermediate, 10/14/16) adhesive tape (Intermediate, I-RASH 07/30/15) aspirin (Intermediate, "COLD SWEATS", N/V 07/30/15) Iodinated Contrast- Oral and IV Dye (IODINATED CONTRAST MEDIA - ORAL AND) (10/29) Sulfa (Sulfonamide Antibiotics) ("CONTRAINDICATED WITH ASTHMA" 07/30/15) cyclobenzaprine (From FLEXERIL) (10/29/16) duloxetine (10/29/16) trimethoprim (10/29/16) Beta-Blockers (Beta-Adrenergic Bloc (Severe, "MAKES ASTHMA WORSE" 07/30/15) caffeine (From Cafergot) (Mild, NA-NAUSEA 07/30/15) ergotamine (From Cafergot) (Mild, NA-NAUSEA 07/30/15) pregabalin (From Lyrica) (Mild, "TOO SEDATED" 07/30/15) HEIGHT- FT: 5 IN: 5.00 K.733 VTE General Information Labs: Laboratory Tests 02/25 09 0605 2210 Coagulation PT (9.4 - 11.8 SECONDS) 10.7 INR (0.9 - 1.1) 0.99 Hematology Hgb (12.2 - 16.2 g/dL) 10.7 L 11.6 L Hct (37.0 - 47.0 %) 33.7 L 35.9 L Plt Count (142 - 424 K/mm3) 120 L 136 L Disclaimer The following section includes nursing documentation that has been pulled in for pharmacy review. Patient's VTE score: 4 Patient's VTE Risk: LOW RISK Clinical trial participant? No VTE prophylaxis NQF [id number] VTE prophylaxis ordered? Yes Type of prophylaxis/treatment: ALLYSON at 0919
--- NOTE | 2017-02-25 09:19 | PHARMACY CLINIC NOTE ---
Patient Demographics Patient Demographics Admission date: 02/25/17 Date: 02/25/17 Time: 917 Allergies Coded Allergies: amitriptyline (From Elavil) (Severe, V-PPUVGL-OFEN/THROAT; SEIZURES 07/30/15) chlorpromazine (From Thorazine) (Severe, SEIZURES 07/30/15) dichloralphenazone (From Midrin) (Severe, N-JZLIUV-ZILZ/THROAT 07/30/15) isometheptene (From Midrin) (Severe, U-XOBICV-GDEI/THROAT 07/30/15) prochlorperazine (From Compazine) (Severe, SEIZURES 07/30/15) acetaminophen (From MIDRIN) (Intermediate, 10/14/16) adhesive tape (Intermediate, I-RASH 07/30/15) aspirin (Intermediate, "COLD SWEATS", N/V 07/30/15) Iodinated Contrast- Oral and IV Dye (IODINATED CONTRAST MEDIA - ORAL AND) (10/29) Sulfa (Sulfonamide Antibiotics) ("CONTRAINDICATED WITH ASTHMA" 07/30/15) cyclobenzaprine (From FLEXERIL) (10/29/16) duloxetine (10/29/16) trimethoprim (10/29/16) Beta-Blockers (Beta-Adrenergic Bloc (Severe, "MAKES ASTHMA WORSE" 07/30/15) caffeine (From Cafergot) (Mild, NA-NAUSEA 07/30/15) ergotamine (From Cafergot) (Mild, NA-NAUSEA 07/30/15) pregabalin (From Lyrica) (Mild, "TOO SEDATED" 07/30/15) HEIGHT- FT: 5 IN: 5.00 K.733 VTE General Information Labs: Laboratory Tests 02/25 09 0605 2210 Coagulation PT (9.4 - 11.8 SECONDS) 10.7 INR (0.9 - 1.1) 0.99 Hematology Hgb (12.2 - 16.2 g/dL) 10.7 L 11.6 L Hct (37.0 - 47.0 %) 33.7 L 35.9 L Plt Count (142 - 424 K/mm3) 120 L 136 L Disclaimer The following section includes nursing documentation that has been pulled in for pharmacy review. Patient's VTE score: 4 Patient's VTE Risk: LOW RISK Clinical trial participant? No VTE prophylaxis NQF [id number] VTE prophylaxis ordered? Yes Type of prophylaxis/treatment: ALLYSON at 0919
[2017-02-26 04:08] VITALS: BP 115/55
--- NOTE | 2017-02-26 07:10 | ACUTE CARE PROGRESS NOTE (QUA) ---
Progress Notes Subjective Date 02/26/17 Time 0709 Note Patient overall feels better. Has been in some pain in her lower back. Lungs are clear, heart rate regular, abdomen is soft. Previously documented abnormal back exam noted. Culture pending. Objective Findings Last VS-Temp:98.5 B/P:115/55 Pulse:78 Resp:16 SaO2:95 OXYGEN Last weight lbs:180 oz:3 K.733 Method:Bed Scales Assessment/Plan Problem List 1. Acute delirium 2. Churg-Noemi syndrome 3. Urinary tract infection Patient condition Improving Plan: continue antibiotics for urinary tract infection. Watch labs today. Blood pressure well-controlled at this point so I will not restart her home lisinopril. Restart home pain medications. This inpt stay is expected to cross 2 MNs from start of care Yes at 0710
[2017-02-26 07:38] LABS: HEMOGLOBIN 10.9 g/dL (12.2-16.2); LYMPH # 1.8 K/mm3 (0.7-4.5); LYMPH % 33.2 % (10-50.0)
[2017-02-26 07:51] VITALS: BP 115/55; BP 132/55
[2017-02-26 08:00] VITALS: BP 132/55
[2017-02-26 16:00] VITALS: BP 137/77
[2017-02-26 19:29] VITALS: BP 130/83
[2017-02-26 20:20] VITALS: BP 130/83
[2017-02-27 04:06] VITALS: BP 157/75
[2017-02-27 06:24] LABS: HEMOGLOBIN 11.6 g/dL (12.2-16.2); LYMPH # 2.6 K/mm3 (0.7-4.5); LYMPH % 49.8 % (10-50.0)
--- NOTE | 2017-02-27 07:58 | ACUTE CARE PROGRESS NOTE (QUA) ---
Progress Notes Subjective Date 02/27/17 Time 0757 Note She feels better, alert, pleasant. Lungs clear, heart rate regular. Abdomen soft. Urine culture pending. Objective Findings Last VS-Temp:98.4 B/P:157/75 Pulse:75 Resp:18 SaO2:96 OXYGEN Last weight lbs:180 oz:3 K.733 Method:Bed Scales Assessment/Plan Problem List 1. Acute delirium 2. Churg-Noemi syndrome 3. Urinary tract infection Patient condition Improving Plan: continue current care, await culture for discharge planning This inpt stay is expected to cross 2 MNs from start of care Yes at 0758
[2017-02-27 07:59] VITALS: BP 133/78
[2017-02-27] MEDS ORDERED: OMNICEF 300 MG300 MG PO (08:10)
--- NOTE | 2017-02-27 08:12 | DISCHARGE SUMMARY STANDARD ---
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 She has been subjected to G-tube placement for nutritional issues but apparently has done well with this and was at [facility] yesterday and had her G-tube removed without problems. She did well on the RIGHT home but once she got home became somewhat confused and was brought to the hospital. Initial thought was that she had another stroke however CT scan showed no evidence of hemorrhage and no foreign exchange clerk baseline. She was found to have a urinary tract infection. She has a history of mental status changes with UTIs and was admitted to hospital for IV antibiotics given her significant comorbidities. This morning she feels better, is a little bit more alert, her is pleased with her improvement. Hospital Course Hospital Course: Patient was admitted, hydrated. Placed on intravenous ceftriaxone. She tolerated this well and her pain and delirium cleared very nicely. Urine culture shows light growth, with sensitivities pending. This morning. Her exam returned to its baseline. She'll be discharged home on cefdinir 300 mg daily given her clinical response to ceftriaxone, and she'll follow-up with her regular physician, Dr. Lj Ballesteros on Monday for review of sensitivities, and medications and ongoing functional status. Discharge diagnoses Problem List 1. Acute delirium 2. Churg-Noemi syndrome 3. Urinary tract infection Medications Medications: Discharge meds are as noted. Follow up Follow up in office in: 4 DAYS with: Odin Deluna MD at 0812
--- NOTE | 2017-02-27 08:12 | DISCHARGE SUMMARY STANDARD ---
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 She has been subjected to G-tube placement for nutritional issues but apparently has done well with this and was at [facility] yesterday and had her G-tube removed without problems. She did well on the RIGHT home but once she got home became somewhat confused and was brought to the hospital. Initial thought was that she had another stroke however CT scan showed no evidence of hemorrhage and no microsoft exchange administrator baseline. She was found to have a urinary tract infection. She has a history of mental status changes with UTIs and was admitted to hospital for IV antibiotics given her significant comorbidities. This morning she feels better, is a little bit more alert, her is pleased with her improvement. Hospital Course Hospital Course: Patient was admitted, hydrated. Placed on intravenous ceftriaxone. She tolerated this well and her pain and delirium cleared very nicely. Urine culture shows light growth, with sensitivities pending. This morning. Her exam returned to its baseline. She'll be discharged home on cefdinir 300 mg daily given her clinical response to ceftriaxone, and she'll follow-up with her regular physician, Dr. Lj Ballesteros on Monday for review of sensitivities, and medications and ongoing functional status. Discharge diagnoses Problem List 1. Acute delirium 2. Churg-Noemi syndrome 3. Urinary tract infection Medications Medications: Discharge meds are as noted. Follow up Follow up in office in: 4 DAYS with: Odin Deluna MD at 0812
[2017-02-27 08:53] VITALS: BP 133/78
[2017-02-27 10:10] VITALS: BP 133/78
--- OUTSIDE RECORDS SUMMARY | 2017-03-26 17:37 | External Medical Summary Rpt ---
Author Author , SAEID Organization [facility] Address Unknown Phone [email or web address] Care Team Providers Care Die Keeper Name Role Phone Lj Ballesteros MD, Unavailable Unavailable Lj Ballesteros MD Purpose Continuity of Care Document - 09-07-2012 through 2016 Problems Code Diagnosis DOS Provider Status [id number] Asthma [facility] 250.60 Diabetic [place] peripheral [facility] [id number] Migraine [facility] [id number] Osteoarthri [facility] 401.9 Essential [place] hypertensio [facility] 427.31 Atrial [place] fibrillatio [facility] 427.81 Sick sinus [place] syndrome [facility] [id number] Diabetes [place] mellitus [facility] type 2 [facility] 447.6 Vasculitis [facility] [id number] Rheumatoid [place] arthritis [facility] [id number] Chronic [facility] Allergies, Adverse Reactions, Alerts Type Allergy to [...] er -A 2 CE Ac TA ti RI ve NO PH EN 5- 32 5 [...] 00 12 0 No SO 18 -2 UT 50 4- Lo OL 77 20 ng [...] ti 4 ve MG /2 ML AL UT 00 05 0 No OM 64 -0 [...] Order Detail nces retati t Range on Bacteria identified in Urine by Culture (02-24-2017 22:30) Bacteri MODERAT complet a 017 E ed identif 22:30 AMOUNT ied in OF Urine YEAST by NOTED Culture (APPROX . 30 SMALL COLONIE S) Bacteri PLEASE complet a 017 CONTACT ed identif 22:30 LAB IF ied in ID Urine REQUIRE by D. Culture Bacteri Yeast complet a 017 ed identif 22:30 ied in Urine by Culture Urinalysis dipstick W Reflex Microscopic panel in Urine (02-24-2017 22:30) Leukocy 10-20 O complet xavier 017 wbc/hpf ed [#/volu 22:30 me] in Urine Yeast 2+ NONE complet [Presen 017 ed ce] in 22:30 Urine sedimen t by Light microsc opy Urinalysis dipstick W Reflex Microscopic panel in Urine (02-24-2017 22:30) Appeara CLEAR CLEAR complet nce of 017 ed Urine 22:30 Bilirub NEGATIV NEG complet in 017 E ed [Presen 22:30 ce] in Urine by Test strip Erythro NEGATIV NEG complet cytes 017 E ed [Presen 22:30 ce] in Urine Color YELLOW YELLOW complet of 017 ed Urine 22:30 Ketones NEGATIV NEG complet 017 E ed [Presen 22:30 ce] in Urine by Automat ed test strip Mucus 1+ NEG Abnorma complet [Presen 017 l ed ce] in 22:30 Urine sedimen t by Light microsc opy Nitrite NEGATIV NEG complet 017 E ed [Presen 22:30 ce] in Urine by Test strip Urobili 0.2 NEG complet nogen 017 ed [Presen 22:30 ce] in Urine by Test strip Urinalysis dipstick W Reflex Microscopic panel in Urine (12-23-2016 14:40) Bacteri 1+ O complet a 017 ed [Presen 14:40 ce] in Urine sedimen t by Light microsc opy Erythro NONE 0 complet cytes 017 ed [Presen 14:40 ce] in Urine sedimen t by Light microsc opy Epithel OCC 0#/hp complet ial 017 f - ed cells.s 14:40 5#/hp quamous f [Presen ce] in Urine sedimen t by Microsc opy high power field Urinalysis dipstick W Reflex Microscopic panel in Urine (12-23-2016 14:40) Appeara CLEAR CLEAR complet nce of 017 ed Urine 14:40 Bilirub NEGATIV NEG complet in 017 E ed [Presen 14:40 ce] in Urine by Test strip Erythro NEGATIV NEG complet cytes 017 E ed [Presen 14:40 ce] in Urine Color YELLOW YELLOW complet of 017 ed Urine 14:40 Ketones NEGATIV NEG complet 017 E ed [Presen 14:40 ce] in Urine by Automat ed test strip Mucus 1+ NEG Abnorma complet [Presen 017 l ed ce] in 14:40 Urine sedimen t by Light microsc opy Nitrite NEGATIV NEG complet 017 E ed [Presen 14:40 ce] in Urine by Test strip Urobili 0.2 NEG complet nogen 017 ed [Presen 14:40 ce] in Urine by Test strip Urinalysis dipstick W Reflex Microscopic panel in Urine (12-13-2016 15:00) Bacteri 4+ O complet a 017 ed [Presen 15:00 ce] in Urine sedimen t by Light microsc opy Hyaline 3-5 NONE complet casts 017 ed [Presen 15:00 ce] in Urine sedimen t by Light microsc opy Erythro OCC 0 complet cytes 017 ed [Presen 15:00 ce] in Urine sedimen t by Light microsc opy Epithel 5-10 0#/hp complet ial 017 f - ed cells.s 15:00 5#/hp quamous f [Presen ce] in Urine sedimen t by Microsc opy high power field Leukocy 20-50 O complet xavier 017 wbc/hpf ed [#/volu 15:00 me] in Urine Urinalysis dipstick W Reflex Microscopic panel in Urine (12-13-2016 15:00) Appeara SL CLEAR complet nce of 017 CLOUDY ed Urine 15:00 Bilirub NEGATIV NEG complet in 017 E ed [Presen 15:00 ce] in Urine by Test strip Erythro TRACE-L NEG complet cytes 017 YSED ed [Presen 15:00 ce] in Urine Color YELLOW YELLOW complet of 017 ed Urine 15:00 Ketones NEGATIV NEG complet 017 E ed [Presen 15:00 ce] in Urine by Automat ed test strip Mucus 1+ NEG Abnorma complet [Presen 017 l ed ce] in 15:00 Urine sedimen t by Light microsc opy Nitrite NEGATIV NEG complet 017 E ed [Presen 15:00 ce] in Urine by Test strip Urobili 0.2 NEG complet nogen 017 ed [Presen 15:00 ce] in Urine by Test strip Urinalysis dipstick W Reflex Microscopic panel in Urine (11-11-2016) Bacteri 2+ O complet a 017 ed [Presen ce] in Urine sedimen t by Light microsc opy Epithel OCC 0#/hp complet ial 017 f - ed cells.s 5#/hp quamous f [Presen ce] in Urine sedimen t by Microsc opy high power field Leukocy 20-50 O complet xavier 017 wbc/hpf ed [#/volu me] in Urine Urinalysis dipstick W Reflex Microscopic panel in Urine (11-11-2016) Appeara CLOUDY CLEAR complet nce of 017 ed Urine Bilirub NEGATIV NEG complet in 017 E ed [Presen ce] in Urine by Test strip Erythro TRACE-L NEG complet cytes 017 YSED ed [Presen ce] in Urine Color STRAW YELLOW complet of 017 ed Urine Ketones NEGATIV NEG complet 017 E ed [Presen ce] in Urine by Automat ed test strip Mucus 1+ NEG Abnorma complet [Presen 017 l ed ce] in Urine sedimen t by Light microsc opy Nitrite NEGATIV NEG complet 017 E ed [Presen ce] in Urine by Test strip Urobili 0.2 NEG complet nogen 017 ed [Presen ce] in Urine by Test strip Chloride Bld-sCnc (10-31-2016 17:00) Chlorid 114 101-108 complet e 017 mmol/L ed Bld-sCn 17:00 c Phosphate SerPl-mCnc (10-31-2016 03:37) Phospha 3.1 2.5-4.5 complet te 017 mg/dL ed SerPl-m 03:37 Cnc Magnesium SerPl-mCnc (10-31-2016 03:37) Magnesi 1.9 1.9-2.4 complet um 017 mg/dL ed SerPl-m 03:37 Cnc Vancomycin SerPl-mCnc (10-31-2016 03:37) Vancomy 7.2 0-40.0 complet martha 017 ug/mL ed SerPl-m 03:37 Cnc Lactate Bld-sCnc (10-31-2016 03:33) Lactate 0.4 complet 017 mmol/L ed Bld-sCn 03:33 c Bacteria Ur Cult (10-30-2016 00:25) Bacteri [id number] complet a XXX 017 5 yeast ed Anaerob 00:25 e+Aerob (organi e Cult sm) SCT YEAST YEAST L CC XXX NOTAP complet VC-aCnc 017 NOT ed 00:25 APPLICA BLE L Bacteria XXX Anaerobe+Aerobe Cult (10-29-2016 23:33) Bacteri NGB2 NO complet a XXX 017 GROWTH ed Anaerob 23:33 DAY 2. e+Aerob L e Cult Lipase SerPl-cCnc (10-29-2016 21:54) Lipase 20 U/L 19-63 complet SerPl-c 017 ed Cnc 21:54 CK SerPl-cCnc (10-29-2016 21:54) CK 1449 37-168 complet SerPl-c 017 U/L ed Cnc 21:54 CRP SerPl-mCnc (10-29-2016 21:54) CRP 3.1 0-0.9 complet SerPl-m 017 mg/dL ed Cnc 21:54 Lactate Bld-sCnc (10-29-2016 21:54) Lactate 1.3 complet 017 mmol/L ed Bld-sCn 21:54 c ESR Bld Qn (10-03-2016 10:37) ESR Bld 48 0-20 complet Qn 017 mm/hr ed 10:37 Hgb A1c MFr Bld (10-03-2016 10:37) Hgb A1c 7.3 % 4.7-6.0 complet MFr 017 ed Bld 10:37 Mycobacterium XXX Ql Cult (08-01-2016 16:33) Bacteri [id number] complet a XXX 017 00 not ed Anaerob 16:33 isolate e+Aerob d e Cult (qualif ier value) SCT NM42 NO ACID FAST BACILLI ISOLATE D AT 6 WEEKS L Bacteri [id number] complet a XXX 017 00 not ed Anaerob 16:33 isolate e+Aerob d e Cult (qualif ier value) SCT NM21 NO ACID FAST BACILLI ISOLATE D AT 3 WEEKS L Fungus Tiss Cult (08-01-2016 16:33) Bacteri [id number] complet a XXX 017 03 ed Anaerob 16:33 sample: e+Aerob fungus e Cult not isolate d (findin g) SCT NF42 NO FUNGAL GROWTH AT 6 WEEKS L Bacteri [id number] complet a XXX 017 03 ed Anaerob 16:33 sample: e+Aerob fungus e Cult not isolate d (findin g) SCT NF21 NO FUNGAL GROWTH AT 3 WEEKS L PT BldC (04-27-2016 08:40) INR PPP 1.2 0.8-1.2 complet 016 ed 08:40 Comment: Serial Number: [id number] Athletic Equipment Manager: [id number] PT PPP 14.3 12.8-15 complet 016 seconds .2 ed 08:40 Bas Metab 2000 Pnl SerPl (04-27-2016 08:23) Comment: Meter: [id number] Athletic Equipment Manager: [id number] Sami Haddad Glucose 163 70-130 complet BldC [...] mg/dL 1 ed SerPl-m 11:25 Cnc Prot 18-2 7.4 6.4-8.2 complet SerPl-m 014 gm/dL ed Cnc 11:25 Albumin 18-2 3.7 3.4-5.0 complet 014 gm/dL ed SerPl-m 11:25 Cnc Globuli 18-2 3.7 1.3-3.2 complet n 014 gm/dL ed Ser-mCn 11:25 c Albumin 07-06-2 1.0 UNK 1.1-1.8 complet /Glob 014 ed SerPl-m 11:25 Rto Bilirub 07-06-2 0.4 0.2-1.0 complet 014 mg/dL ed SerPl-m 11:25 Cnc AST 07-06-2 24 U/L 15-37 complet SerPl-c 014 ed Cnc 11:25 ALT 07-06-2 33 U/L 12-78 complet SerPl-c 014 ed Cnc 11:25 ALP 07-06-2 128 U/L 50-136 complet SerPl-c 014 ed Cnc 11:25 CBC with AUTO DIFF (07-06-2013 11:25) WBC # 18-2 7.6 4.8-10. complet Bld 014 K/MM3 8 ed Auto 11:25 RBC # 18-2 4.34 4.2-5.4 complet Bld 014 M/mm3 ed Auto 11:25 Hgb 07-06-2 13.6 12.2-16 complet Bld-mCn 014 g/dL .2 ed c 11:25 Hct Fr 07-06-2 41.9 % 37.0-47 complet Bld 014 .0 ed 11:25 MCV RBC 07-06-2 96.5 fl 82.2-97 complet 014 .8 ed 11:25 MCH RBC 18-2 31.3 pg 27-31.2 complet Qn 014 ed Auto 11:25 MEAN 07-06-2 32.5 31.8-35 complet CORPUSC 014 g/dl .4 ed ULAR 11:25 HGB CONC RDW RBC 18-2 15.1 % 11.5-17 complet Auto 014 .5 ed 11:25 Platele 07-06-2 192 142-424 complet t Bld 014 K/mm3 ed Ql 11:25 Manual MEAN 01-18-2 7.9 fl 7.4-10. complet PLATELE 014 4 ed T 11:25 VOLUME Granulo 01-18-2 51.2 % 37.0-80 complet cytes 014 .0 [...] Bld 11:25 Auto URINALYSIS/COMPLETE (07-06-2013 10:53) URINE 01-18-2 YELLOW YELLOW complet COLOR 014 ed 10:53 [...] 5.0-8.5 complet PH 014 ed 10:53 URINE NEGATIV NEG complet PROTEIN 014 E mg/dL ed - 10:53 DIPSTIC K URINE 0.2 NEG complet UROBILI 014 E.U./dL ed [...] SerPl-m 014 gm/dL ed Cnc 05:55 Albumin 2 3.2 3.4-5.0 complet 014 gm/dL ed SerPl-m [...] with AUTO DIFF (07-01-2013 05:55) WBC # 07-01-2 5.7 4.8-10. complet Bld 014 K/MM3 8 ed Auto 05:55 RBC # 07-01-2 3.94 4.2-5.4 complet Bld 014 M/mm3 ed [...] ed ULAR 05:55 HGB CONC RDW RBC 01-13-2 14.9 % 11.5-17 complet Auto 014 .5 ed 05:55 Platele -13-2 179 142-424 complet t Bld 014 K/mm3 ed Ql 05:55 Manual MEAN -13-2 7.9 fl 7.4-10. complet PLATELE 014 4 ed T 05:55 VOLUME Granulo -13-2 44.0 % 37.0-80 complet cytes 014 .0 ed Fr Bld 05:55 Auto LYMPH % -13-2 48.4 % 10-50.0 complet 014 ed 05:55 Monocyt -13-2 4.1 % 1.7-9.3 complet es Fr 014 ed Bld 05:55 Auto Eosinop -13-2 3.2 % 0.1-12. complet hil Fr 014 0 ed Bld 05:55 Auto Basophi -13-2 0.3 % 0.1-2.0 complet ls Fr 014 ed Bld 05:55 Auto Granulo -13-2 2.5 1.8-7.8 complet cytes # 014 K/mm3 ed Bld 05:55 Auto Lymphoc -13-2 2.8 0.7-4.5 complet ytes Fr 014 K/mm3 ed Bld 05:55 Auto Monocyt -13-2 0.2 0.1-1.0 complet es # 014 K/mm3 ed Bld 05:55 Auto Eosinop -13-2 0.2 0.0-0.4 complet hil # 014 K/mm3 ed Bld 05:55 Auto Basophi -13-2 0.0 0-0.2 complet ls # 014 K/MM3 ed Bld 05:55 Auto Glucose dC Glucomtr[facility] (06-11-2013 11:48) Glucose 06-11-2 395 70-110 High complet BldC 013 mg/dl alert ed Glucomt 11:48 [facility] Glucose dC Glucomtr-[facility] (06-11-2013 06:28) Glucose 06-11-2 235 70-110 complet BldC 013 mg/dl ed Glucomt 06:28 [facility] COMPREHENSIVE METABOLIC PANEL (06-11-2013 01:05) Glucose 06-11-2 351 74-106 complet 013 mg/dL ed d-[facility] 01:05 c BUN 12-24-2 17 7-18 complet Bld-mCn 013 mg/dL ed c 01:05 Creat 1.0 0.6-1.0 complet SerPl-m 013 mg/dL ed Cnc 01:05 Creat 70 50-200 complet Cl 013 ML/MIN ed [...] ed Cnc 01:05 PROTIME/INR (06-11-2013 01:05) PROTHRO 12-24-2 16.9 9.9-11. complet MBIN 013 SECONDS 6 ed TIME 01:05 INR Bld 24-2 1.57 0.9-1.1 complet 013 UNK ed 01:05 CBC with AUTO DIFF (06-11-2013 01:05) WBC # 12-24-2 10.4 4.8-10. complet Bld 013 K/MM3 8 ed Auto 01:05 RBC # 24-2 4.24 4.2-5.4 complet Bld 013 M/mm3 ed Auto 01:05 Hgb 24-2 13.5 12.2-16 complet Bld-mCn 013 g/dL .2 ed c 01:05 Hct Fr 06-11-2 40.7 % 37.0-47 complet Bld 013 .0 ed 01:05 MCV RBC 24-2 95.9 fl 82.2-97 complet 013 .8 ed 01:05 MCH RBC 06-11-2 31.8 pg 27-31.2 complet Qn 013 ed Auto 01:05 MEAN 06-11-2 33.2 31.8-35 complet CORPUSC 013 g/dl .4 ed ULAR 01:05 HGB CONC RDW RBC 24-2 15.3 % 11.5-17 complet Auto 013 .5 ed 01:05 Platele -24-2 194 142-424 complet t Bld 013 K/mm3 ed Ql 01:05 Manual MEAN 24-2 8.1 fl 7.4-10. complet PLATELE 013 4 ed T 01:05 VOLUME Granulo 06-11-2 61.5 % 37.0-80 complet cytes 013 .0 ed Fr Bld 01:05 Auto LYMPH % -24-2 33.2 % 10-50.0 complet 013 ed 01:05 Monocyt -24-2 3.6 % 1.7-9.3 complet es Fr 013 ed Bld 01:05 Auto Eosinop -24-2 1.3 % 0.1-12. complet hil Fr 013 0 ed Bld 01:05 Auto Basophi -24-2 0.3 % 0.1-2.0 complet ls Fr 013 ed Bld 01:05 Auto Granulo -24-2 6.4 1.8-7.8 complet cytes # 013 K/mm3 ed Bld 01:05 Auto Lymphoc 24-2 3.5 0.7-4.5 complet ytes Fr 013 K/mm3 ed Bld 01:05 Auto Monocyt 24-2 0.4 0.1-1.0 complet es # 013 K/mm3 ed Bld 01:05 Auto Eosinop 24-2 0.1 0.0-0.4 complet hil # 013 K/mm3 ed Bld 01:05 Auto Basophi 24-2 0.0 0-0.2 complet ls # 013 K/MM3 ed Bld 01:05 Auto COMPREHENSIVE METABOLIC PANEL (04-09-2013 11:05) Glucose 319 74-106 complet 013 mg/dL ed Bld-mCn 11:05 c BUN 04-09- 15 7-18 complet Bld-mCn 013 mg/dL ed c 11:05 Creat 2 0.9 0.6-1.0 complet SerPl-m 013 mg/dL ed Cnc 11:05 GFR 63 59- complet (ESTIMA 013 ML/MIN ed ALLYSON) 11:05 Sodium 138 136-145 complet SerPl-s 013 mmoL/L ed Cnc 11:05 Potassi 4.8 3.5-5.1 complet um 013 mmoL/L ed SerPl-s 11:05 Cnc Chlorid 102 98-107 complet e 013 mmoL/L ed SerPl-s 11:05 Cnc CO2 27 21.0-32 complet SerPl-s 013 mmoL/L .0 ed Cnc 11:05 Calcium 04-09- 8.2 8.5-10. complet 013 mg/dL 1 ed SerPl-m 11:05 Cnc Prot 04-09-2 6.4 6.4-8.2 complet SerPl-m 013 gm/dL ed Cnc 11:05 Albumin 04-09- 3.5 3.4-5.0 complet 013 gm/dL ed SerPl-m 11:05 Cnc Globuli 04-09- 2.9 1.3-3.2 complet n 013 gm/dL ed Ser-mCn 11:05 c Albumin 04-09-2 1.2 UNK 1.1-1.8 complet /Glob 013 ed SerPl-m 11:05 Rto Bilirub 04-09-2 0.2 0.2-1.0 complet 013 mg/dL ed SerPl-m 11:05 Cnc AST 04-09-2 16 U/L 15-37 complet SerPl-c 013 ed [...] g/dL .2 ed c 11:05 Hct Fr 04-09-2 38.0 % 37.0-47 complet Bld 013 .0 ed 11:05 MCV RBC 04-09-2 100.5 82.2-97 complet 013 fl .8 ed 11:05 MCH RBC 04-09-2 32.2 pg 27-31.2 complet Qn 013 ed Auto 11:05 MEAN 04-09-2 32.0 31.8-35 complet CORPUSC 013 g/dl .4 ed ULAR 11:05 HGB CONC RDW RBC 22-2 14.8 % 11.5-17 complet Auto 013 .5 ed 11:05 Platele 04-09-2 168 142-424 complet t Bld 013 K/mm3 ed Ql 11:05 Manual MEAN 04-09-2 8.2 fl 7.4-10. complet PLATELE 013 4 ed T 11:05 VOLUME Granulo 10-22-2 49.7 % 37.0-80 complet cytes 013 .0 ed Fr Bld 11:05 Auto LYMPH % 1022-2 43.0 % 10-50.0 complet 013 ed 11:05 Monocyt 04-09-2 4.1 % 1.7-9.3 complet es Fr 013 ed Bld 11:05 Auto Eosinop 10-22-2 2.8 % 0.1-12. complet hil Fr 013 0 ed Bld 11:05 Auto Basophi 1022-2 0.4 % 0.1-2.0 complet ls Fr 013 ed Bld 11:05 Auto Granulo 22-2 2.9 1.8-7.8 complet cytes # 013 K/mm3 ed Bld 11:05 Auto Lymphoc 22-2 2.5 0.7-4.5 complet ytes Fr 013 K/mm3 ed Bld 11:05 Auto Monocyt 22-2 0.2 0.1-1.0 complet es # 013 K/mm3 ed Bld 11:05 Auto Eosinop 22-2 0.2 0.0-0.4 complet hil # 013 K/mm3 ed Bld 11:05 Auto Basophi 1022-2 0.0 0-0.2 complet ls # 013 K/MM3 [...] SerPl-m 013 gm/dL ed Cnc 15:00 Albumin 3.5 3.4-5.0 complet 013 gm/dL ed [...] with AUTO DIFF (03-21-2013 15:00) WBC # 03-21- 6.6 4.8-10. complet Bld 013 K/MM3 8 ed Auto 15:00 RBC # 3.95 4.2-5.4 complet Bld 013 M/mm3 ed Auto 15:00 Hgb 13.0 12.2-16 complet Bld-mCn 013 g/dL .2 ed c 15:00 Hct Fr 39.6 % 37.0-47 complet Bld 013 .0 ed 15:00 MCV RBC 100.3 82.2-97 complet 013 fl .8 ed 15:00 MCH RBC 32.8 pg 27-31.2 complet Qn 013 ed Auto 15:00 MEAN 2 32.7 31.8-35 complet CORPUSC 013 g/dl .4 ed ULAR 15:00 HGB CONC RDW RBC 14.4 % 11.5-17 complet Auto 013 .5 ed 15:00 Platele 192 142-424 complet t Bld 013 K/mm3 ed Ql 15:00 Manual MEAN 2 8.0 fl 7.4-10. complet PLATELE 013 4 ed T 15:00 VOLUME Granulo 2 43.3 % 37.0-80 complet cytes 013 .0 ed Fr Bld 15:00 Auto LYMPH % 03-21-2 51.1 % 10-50.0 complet 013 ed 15:00 Monocyt 03-21-2 3.0 % 1.7-9.3 complet es Fr 013 ed Bld 15:00 Auto Eosinop 03-2 2.2 % 0.1-12. complet hil Fr 013 0 ed Bld 15:00 Auto Basophi 03-2 0.4 % 0.1-2.0 complet ls Fr 013 ed Bld 15:00 Auto Granulo 03-2 2.9 1.8-7.8 complet cytes # 013 K/mm3 ed Bld 15:00 Auto Lymphoc 03-21-2 3.4 0.7-4.5 complet ytes Fr 013 K/mm3 ed Bld 15:00 Auto Monocyt 03-2 0.2 0.1-1.0 complet es # 013 K/mm3 ed Bld 15:00 Auto Eosinop -03-2 0.2 0.0-0.4 complet hil # 013 K/mm3 ed Bld 15:00 Auto Basophi 10-03-2 0.0 0-0.2 complet ls # 013 K/MM3 ed Bld 15:00 Auto COMPREHENSIVE METABOLIC PANEL (10-25-2012 10:00) Glucose 340 74-106 complet 013 mg/dL ed Bld-mCn 10:00 c BUN 19 7-18 complet Bld-mCn 013 mg/dL ed c 10:00 Creat 05-09-2 1.1 0.6-1.0 complet SerPl-m 013 mg/dL ed [...] SECONDS 0 ed TIME 10:00 INR Bld 05-09-2 2.47 0.9-1.1 complet 013 UNK ed 10:00 CBC with AUTO DIFF (10-25-2012 10:00) WBC # 05-09-2 7.6 4.8-10. complet Bld 013 K/MM3 8 ed Auto 10:00 RBC # -09-2 4.28 4.2-5.4 complet Bld 013 M/mm3 ed Auto 10:00 Hgb -09-2 13.1 12.2-16 complet Bld-mCn 013 g/dL .2 ed c 10:00 Hct Fr 10-25- 40.2 % 37.0-47 complet Bld 013 .0 ed 10:00 MCV RBC 10-25- 93.8 fl 82.2-97 complet 013 .8 ed 10:00 MCH RBC 10-25- 30.5 pg 27-31.2 complet Qn 013 ed Auto 10:00 MEAN 10-25- 32.5 31.8-35 complet CORPUSC 013 g/dl .4 ed ULAR 10:00 HGB CONC RDW RBC 10-25-2 15.3 % 11.5-17 complet Auto 013 .5 ed 10:00 Platele 10-25-2 223 142-424 complet t Bld 013 K/mm3 ed Ql 10:00 Manual MEAN 7.6 fl 7.4-10. complet PLATELE 013 4 ed T 10:00 VOLUME Granulo 10-25-2 71.1 % 37.0-80 complet cytes 013 .0 ed Fr Bld 10:00 Auto LYMPH % --2 24.7 % 10-50.0 complet 013 ed 10:00 Monocyt --2 2.6 % 1.7-9.3 complet es Fr 013 ed Bld 10:00 Auto Eosinop --2 1.4 % 0.1-12. complet hil Fr 013 0 ed Bld 10:00 Auto Basophi 10-25-2 0.2 % 0.1-2.0 complet ls Fr 013 ed Bld 10:00 Auto Granulo --2 5.4 1.8-7.8 complet cytes # 013 K/mm3 ed Bld 10:00 Auto Lymphoc --2 1.9 0.7-4.5 complet ytes Fr 013 K/mm3 ed Bld 10:00 Auto Monocyt 05-09-2 0.2 0.1-1.0 complet es # 013 K/mm3 ed Bld 10:00 Auto Eosinop -09-2 0.1 0.0-0.4 complet hil # 013 K/mm3 ed Bld 10:00 Auto Basophi 09-2 0.0 0-0.2 complet ls # 013 K/MM3 ed Bld 10:00 Auto COMPREHENSIVE METABOLIC PANEL (09-07-2012 13:20) Glucose 09-07-2 338 74-106 complet 013 mg/dL ed Bld-mCn 13:20 c BUN 09-07-2 11 7-18 complet Bld-mCn 013 mg/dL ed c 13:20 Creat 09-07-2 1.0 0.6-1.0 complet SerPl-m 013 mg/dL ed Cnc 13:20 GFR 09-07-2 55 59- complet (ESTIMA 013 ML/MIN ed ALLYSON) 13:20 Sodium 09-07-2 137 136-145 complet SerPl-s 013 mmoL/L ed Cnc 13:20 Potassi 09-07-2 3.5 3.5-5.1 complet um 013 mmoL/L ed SerPl-s 13:20 Cnc Chlorid 09-07-2 102 98-107 complet e 013 mmoL/L ed SerPl-s 13:20 Cnc CO2 09-07-2 23 21.0-32 complet SerPl-s 013 mmoL/L .0 [...] 013 mg/dL ed SerPl-m 13:20 Cnc AST 22-2 25 U/L 15-37 complet SerPl-c 013 ed Cnc 13:20 ALT -22-2 42 U/L 30-65 complet SerPl-c 013 ed Cnc 13:20 ALP -22-2 157 U/L 50-136 complet SerPl-c 013 ed Cnc 13:20 CBC with AUTO DIFF (09-07-2012 13:20) WBC # 03-22-2 8.4 4.8-10. complet Bld 013 K/MM3 8 ed Auto 13:20 RBC # 0322-2 4.11 4.2-5.4 complet Bld 013 M/mm3 ed Auto 13:20 Hgb -22-2 12.8 12.2-16 complet Bld-mCn 013 g/dL .2 ed c 13:20 Hct Fr 09-07-2 38.8 % 37.0-47 complet Bld 013 .0 ed 13:20 MCV RBC 22-2 94.5 fl 82.2-97 complet 013 .8 ed 13:20 MCH RBC 22-2 31.2 pg 27-31.2 complet Qn 013 ed Auto 13:20 MEAN 09-07-2 33.0 31.8-35 complet CORPUSC 013 g/dl .4 ed ULAR 13:20 HGB CONC RDW RBC -22-2 14.3 % 11.5-17 complet Auto 013 .5 ed 13:20 Platele -22-2 216 142-424 complet t Bld 013 K/mm3 [...] Fr 013 ed Bld 13:20 Auto Granulo 09-07-2 4.7 1.8-7.8 complet cytes # 013 K/mm3 ed Bld 13:20 Auto Lymphoc 09-07-2 3.2 0.7-4.5 complet ytes Fr 013 K/mm3 ed Bld 13:20 Auto Monocyt 09-07-2 0.3 0.1-1.0 complet es # 013 K/mm3 ed Bld 13:20 Auto Eosinop 09-07-2 0.2 0.0-0.4 complet hil # 013 K/mm3 ed Bld 13:20 Auto Basophi 09-07-2 0.0 0-0.2 complet ls # 013 K/MM3 ed Bld 13:20 Auto Encounters Encounter Start End Date Code Location Performer Type Date Emergency ANGELINA MATHIS MD (ER) 4 10:37 4 12:58 [facility] Emergency ANGELINA Webster (ER) 4 05:33 4 11:02 [facility] Manny E. Inpatient DENG Ballesteros MD (IN) 3 00:52 3 03:03 [facility] Emergency ANGELINA Ward MD (ER) 3 10:19 3 12:32 [facility] Emergency ANGELINA MATHIS MD (ER) 3 13:59 3 15:36 [facility] Emergency ANGELINA Ward MD (ER) 3 15:47 3 18:22 [facility] Emergency ANGELINA Webster (ER) 3 10:13 3 12:44 [facility] Manny E. Emergency ANGELINA DIOP MD (ER) 3 14:00 3 16:40 [facility]
--- OUTSIDE RECORDS SUMMARY | 2017-03-26 17:37 | External Medical Summary Rpt ---
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 Name Role Phone Lj Ballesteros MD, Unavailable Unavailable Lj Ballestreos MD Purpose Continuity of Care Document - 09-07-2012 through 2016 Problems Code Diagnosis DOS Provider Status [id number] Asthma [facility] 250.60 Diabetic [place] peripheral [facility] [id number] Migraine [facility] [id number] Osteoarthri [facility] 401.[address] [place] [address] [facility] 427.[address] [place] [address] [facility] 427.81 Sick sinus [place] syndrome [facility] [id number] Diabetes [place] mellitus [facility] type 2 [facility] 447.6 Vasculitis [facility] [id number] Rheumatoid [place] arthritis [facility] [id number] Chronic [facility] Allergies, Adverse Reactions, Alerts Type Allergy to [...] er -A 2 CE Ac TA ti GA ve NO PH EN 5- 32 5 [...] 00 12 0 No SO 18 -2 NE 50 4- Lo OL 77 20 ng [...] ti 4 ve MG /2 ML AL NE 00 05 0 No OM 64 -0 [...] c Bacteria Ur Cult (10-30-2016 00:25) Bacteri 1624901 complet a XXX 017 5 yeast ed [...] Mycobacterium XXX Ql Cult (08-01-2016 16:33) Bacteri 3185336 complet a XXX 017 00 not ed Anaerob 16:33 isolate e+Aerob d e Cult (qualif ier value) SCT NM42 NO ACID FAST BACILLI ISOLATE D AT 6 WEEKS L Bacteri 5427901 complet a XXX 017 00 not ed Anaerob 16:33 isolate e+Aerob d e Cult (qualif ier value) SCT NM21 NO ACID FAST BACILLI ISOLATE D AT 3 WEEKS L Fungus Tiss Cult (08-01-2016 16:33) Bacteri 0791475 complet a XXX 017 03 ed Anaerob 16:33 sample: e+Aerob fungus e Cult not isolate d (findin g) SCT NF42 NO FUNGAL GROWTH AT 6 WEEKS L Bacteri 2633316 complet a XXX 017 03 ed Anaerob 16:33 sample: e+Aerob fungus e Cult not isolate d (findin g) SCT NF21 NO FUNGAL GROWTH AT 3 WEEKS L PT BldC (04-27-2016 08:40) INR PPP 1.2 0.8-1.2 complet 016 ed 08:40 Comment: Serial Number: [id number] Supervisor Chlorine Liquefaction: [id number] PT PPP 14.3 12.8-15 complet 016 seconds .2 ed 08:40 Bas Metab 2000 Pnl SerPl (04-27-2016 08:23) Comment: Meter: [id number] Supervisor Chlorine Liquefaction: [id number] Sami Haddad Glucose 163 70-130 complet BldC [...] K/MM3 ed Bld 05:55 Auto Glucose dC Glucomtr-[facility] (06-11-2013 11:48) Glucose 06-11-2 395 70-110 High complet BldC 013 mg/dl alert ed Glucomt 11:48 [facility] Glucose dC Glucomtr-[facility] (06-11-2013 06:28) Glucose 06-11-2 235 70-110 complet BldC 013 mg/dl ed Glucomt 06:28 [facility] COMPREHENSIVE METABOLIC PANEL (06-11-2013 01:05) Glucose 06-11-2 351 74-106 complet 013 mg/dL ed d-[facility] 01:05 c BUN 12-24-2 [...] MATHIS MD (ER) 4 10:37 4 12:58 [facility] Emergency ANGELINA Webster (ER) 4 05:33 4 11:02 [facility] Manny E. Inpatient DEGN Ballesteros MD (IN) 3 00:52 3 03:03 [facility] Emergency ANGELINA Ward MD (ER) 3 10:19 3 12:32 [facility] Emergency ANGELINA MATHIS MD (ER) 3 13:59 3 15:36 [facility] Emergency ANGELINA Ward MD (ER) 3 15:47 3 18:22 [facility] Emergency ANGELINA Webster (ER) 3 10:13 3 12:44 [facility] Manny E. Emergency ANGELINA DIOP MD (ER) 3 14:00 3 16:40 [facility]
--- OUTSIDE RECORDS SUMMARY | 2017-03-26 17:38 | External Medical Summary Rpt ---
Demographics Preferred Language [place] Marital Status Unknown Hinduism Affiliation Unknown Race Unknown Ethnic Group Unknown Author Author SAEID Address Unknown Phone Immunization No patient found.
--- OUTSIDE RECORDS SUMMARY | 2017-03-26 17:38 | External Medical Summary Rpt ---
Demographics Preferred Language [place] Marital Status Unknown Oriental Orthodox Affiliation Unknown Race Unknown Ethnic Group Unknown Author Author SAEID Address Unknown Phone Immunization No patient found.
--- OUTSIDE RECORDS SUMMARY | 2017-03-26 17:39 | External Medical Summary Rpt ---
Author Author [facility] Vila, FLORINDAANDRES [employer] Organization [facility] [employer] Address Unknown Phone Unavailable Results Basic metabolic panel in Blood Observa Value Referen Units Interpr Notes Date tion ce etation Range Urea 7 - 18 mg/dL High No Sep 21 nitrogen informati 2017 [Mass/vol on in 10:45 AM ume] in source Serum or data Plasma Calcium 8.5 - mg/dL Normal No Sep 21 [Mass/vol 10.1 informati 2017 ume] in on in 10:45 AM Serum or source Plasma data Chloride 98 - 107 mmoL/L Normal No Sep 21 [Moles/vo informati 2017 lume] in on in 10:45 AM Serum or source Plasma data Carbon 21.0 - mmoL/L Normal No Sep 21 dioxide, 32.0 informati 2017 total on in 10:45 AM [Moles/vo source lume] in data Serum or Plasma Creatinin 0.55 - mg/dL High No Sep 21 e 1.02 informati 2016 [Mass/vol on in 10:45 AM ume] in source Serum or data Plasma Estimated 59- ML/MIN Low REFERENCE Sep 21 RANGE: 2017 glomerula >60 10:45 AM r ML/MIN/1. filtratio 73 SQUARE n rate METERSIf (GF this patient is -A merican, then multiply theresult by 1.210. Glucose 74 - 106 mg/dL High Mar 09 [Mass/vol 2017 ume] in CRITICAL 10:45 AM Serum or RESULTS Plasma RESU LTS CALLED TO: FLOWER 03/09/17 1203 Cracraft, Shantal Potassium 3.5 - 5.1 mmoL/L High No Sep 21 informati 2017 [Moles/vo on in 10:45 AM lume] in source Serum or data Plasma Sodium 136 - 145 mmoL/L Low No Sep 21 [Moles/vo informati 2017 lume] in on in 10:45 AM Serum or source Plasma data Vancomycin [Mass/volume] in Serum or Plasma --trough Observa Value Referen Units Interpr Notes Date tion ce etation Range Vancomyci 10.0 - mcg/mL Normal No Sep 21 n 20.0 informati 2017 [Mass/vol on in 10:45 AM ume] in source Serum or data Plasma --trough CREATININE Observa Value Referen Units Interpr Notes Date tion ce etation Range Creatinin 0.55 - mg/dL High No Sep 19 e 1.02 informati 2017 [Mass/vol on in 10:36 AM ume] in source Serum or data Plasma Estimated 59- ML/MIN Low REFERENCE Sep 19 RANGE: 2017 glomerula >60 10:36 AM r ML/MIN/1. filtratio 73 SQUARE n rate METERSIf (GF this patient is -A merican, then multiply theresult by 1.210. Comprehensive metabolic 2000 panel in Serum or Plasma Observa Value Referen Units Interpr Notes Date tion ce etation Range Albumin/G 1.1 - 1.8 No Low No Sep 11 lobulin informati informati 2017 6:05 [Mass on in on in AM ratio] in source source Serum or data data Plasma Albumin 3.4 - 5.0 gm/dL Low No Sep 11 [Mass/vol informati 2017 6:05 ume] in on in AM Serum or source Plasma data Alkaline 46 - 116 U/L High No Sep 11 phosphata informati 2017 6:05 se on in AM [Enzymati source c data activity/ volume] in Serum or Plasma Bilirubin 0.2 - 1.0 mg/dL Normal No Sep 11 .total informati 2017 6:05 [Mass/vol on in AM ume] in source Serum or data Plasma Urea 7 - 18 mg/dL No No Sep 11 nitrogen informati informati 2017 6:05 [Mass/vol on in on in AM ume] in source source Serum or data data Plasma Calcium 8.5 - mg/dL Normal No Sep 11 [Mass/vol 10.1 informati 2017 6:05 ume] in on in AM Serum or source Plasma data Chloride 98 - 107 mmoL/L Normal No Sep 11 [Moles/vo informati 2017 6:05 lume] in on in AM Serum or source Plasma data Carbon 21.0 - mmoL/L Normal No Sep 11 dioxide, 32.0 informati 2017 6:05 total on in AM [Moles/vo source lume] in data Serum or Plasma Creatinin 0.55 - mg/dL Normal No Sep 11 e 1.02 informati 2016 6:05 [Mass/vol on in AM ume] in source Serum or data Plasma Creatinin 50 - 200 ML/MIN Normal No Sep 11 e renal informati 2017 6:05 clearance on in AM source predicted data by Cockcroft -Gault formula Estimated 59- ML/MIN Low REFERENCE Sep 11 RANGE: 2017 6:05 glomerula >60 AM r ML/MIN/1. filtratio 73 SQUARE n rate METERSIf (GF this patient is -A merican, then multiply theresult by 1.210. Globulin 1.3 - 3.2 gm/dL High No Sep 11 [Mass/vol informati 2016 6:05 ume] in on in AM Serum source data Glucose 74 - 106 mg/dL High No Sep 11 [Mass/vol informati 2016 6:05 ume] in on in AM Serum or source Plasma data Potassium 3.5 - 5.1 mmoL/L Normal No Sep 11 informati 2016 6:05 [Moles/vo on in AM lume] in source Serum or data Plasma Sodium 136 - 145 mmoL/L Normal No Sep 11 [Moles/vo informati 2017 6:05 lume] in on in AM Serum or source Plasma data Aspartate 15 - 37 U/L Low No Sep 11 informati 2016 6:05 aminotran on in AM sferase source [Enzymati data c activity/ volume] in Serum or Plasma Alanine 12 - 78 U/L Normal No Sep 11 aminotran informati 2016 6:05 sferase on in AM [Enzymati source c data activity/ volume] in Serum or Plasma Protein 6.4 - 8.2 gm/dL Normal No Sep 11 [Mass/vol informati 2017 6:05 ume] in on in AM Serum or source Plasma data CBC W Auto Differential panel in Blood Observa Value Referen Units Interpr Notes Date tion ce etation Range Basophils 0 - 0.2 K/MM3 Normal No Sep 11 informati 2016 6:05 [#/volume on in AM ] in source Blood by data Automated count Basophils 0.1 - 2.0 % Normal No Sep 11 informati 2016 6:05 leukocyte on in AM s in source Blood by data Automated count Eosinophi 0.0 - 0.4 K/mm3 Normal No Sep 11 ls informati 2017 6:05 [#/volume on in AM ] in source Blood by data Automated count Eosinophi 0.1 - % Normal No Sep 11 ls/100 12.0 informati 2017 6:05 leukocyte on in AM s in source Blood by data Automated count Granulocy 1.8 - 7.8 K/mm3 Normal No Sep 11 xavier informati 2017 6:05 [#/volume on in AM ] in source Blood by data Automated count Granulocy 37.0 - % Normal No Sep 11 xavier/100 80.0 informati 2017 6:05 leukocyte on in AM s in source Blood by data Automated count Hematocri 37.0 - % Low No Sep 11 t [Volume 47.0 informati 2017 6:05 on in AM Fraction] source of Blood data Hemoglobi 12.2 - g/dL Low No Sep 11 n 16.2 informati 2017 6:05 [Mass/vol on in AM ume] in source Blood data Lymphocyt 0.7 - 4.5 K/mm3 Normal No Sep 11 es informati 2017 6:05 [#/volume on in AM ] in source Unspecifi data ed specimen by Automated count Lymphocyt 10 - 50.0 % Normal No Sep 11 es informati 2017 6:05 [#/volume on in AM ] in source Unspecifi data ed specimen by Automated count Erythrocy 27 - 31.2 pg Normal No Sep 11 te mean informati 2017 6:05 corpuscul on in AM ar source hemoglobi data n [Entitic mass] Erythrocy 31.8 - g/dl Normal No Sep 11 te mean 35.4 informati 2017 6:05 corpuscul on in AM ar source hemoglobi data n concentra tion [Mass/vol ume] by Automated count Erythrocy 82.2 - fl Normal No Sep 11 te mean 97.8 informati 2017 6:05 corpuscul on in AM ar volume source [Entitic data volume] by Automated count Monocytes 0.1 - 1.0 K/mm3 Normal No Sep 11 informati 2017 6:05 [#/volume on in AM ] in source Blood by data Automated count Monocytes 1.7 - 9.3 % Normal No Sep 11 /100 informati 2016 6:05 leukocyte on in AM s in source Blood by data Automated count Platelet 7.4 - fl Normal No Sep 11 mean 10.4 informati 2017 6:05 volume on in AM [Entitic source volume] data in Blood by Automated count Platelets 142 - 424 K/mm3 Low No Sep 11 informati 2017 6:05 [#/volume on in AM ] in source Blood data Erythrocy 4.2 - 5.4 M/mm3 Low No Sep 11 xavier informati 2016 6:05 [#/volume on in AM ] in source Amniotic data fluid Erythrocy 11.5 - % Normal No Sep 11 te 17.5 informati 2017 6:05 distribut on in AM ion width source [Entitic data volume] by Automated count Leukocyte 4.8 - K/MM3 Normal No Sep 11 s 10.8 informati 2017 6:05 [#/volume on in AM ] in source Blood data Glucose [Mass/volume] in Capillary blood by Glucometer Observa Value Referen Units Interpr Notes Date tion ce etation Range Glucose 70 - 110 mg/dl High No Sep 11 [Mass/vol alert informati 2017 6:04 ume] in on in AM Capillary source blood by data Glucomete r Glucose [Mass/volume] in Capillary blood by Glucometer Observa Value Referen Units Interpr Notes Date tion ce etation Range Glucose 70 - 110 mg/dl High No Sep 10 [Mass/vol informati 2017 7:57 ume] in on in PM Capillary source blood by data Glucomete r Glucose [Mass/volume] in Capillary blood by Glucometer Observa Value Referen Units Interpr Notes Date tion ce etation Range Glucose 70 - 110 mg/dl High No Sep 10 [Mass/vol alert informati 2016 4:47 ume] in on in PM Capillary source blood by data Glucomete r Glucose [Mass/volume] in Capillary blood by Glucometer Observa Value Referen Units Interpr Notes Date tion ce etation Range Glucose 70 - 110 mg/dl High No Sep 10 [Mass/vol alert informati 2016 ume] in on in 12:11 PM Capillary source blood by data Glucomete r Basic metabolic panel in Blood Observa Value Referen Units Interpr Notes Date tion ce etation Range Urea 7 - 18 mg/dL High No Sep 10 nitrogen informati 2017 6:30 [Mass/vol on in AM ume] in source Serum or data Plasma Calcium 8.5 - mg/dL Normal No Sep 10 [Mass/vol 10.1 informati 2017 6:30 ume] in on in AM Serum or source Plasma data Chloride 98 - 107 mmoL/L Normal No Sep 10 [Moles/vo informati 2017 6:30 lume] in on in AM Serum or source Plasma data Carbon 21.0 - mmoL/L Normal No Sep 10 dioxide, 32.0 informati 2017 6:30 total on in AM [Moles/vo source lume] in data Serum or Plasma Creatinin 0.55 - mg/dL No No Sep 10 e 1.02 informati informati 2017 6:30 [Mass/vol on in on in AM ume] in source source Serum or data data Plasma Creatinin 50 - 200 ML/MIN No No Sep 10 e renal informati informati 2017 6:30 clearance on in on in AM source source predicted data data by Cockcroft -Gault formula Estimated 59- ML/MIN No REFERENCE Sep 10 informati RANGE: 2017 6:30 glomerula on in >60 AM r source ML/MIN/1. filtratio data 73 SQUARE n rate METERSIf (GF this patient is -A merican, then multiply theresult by 1.210. Glucose 74 - 106 mg/dL High No Sep 10 [Mass/vol informati 2017 6:30 ume] in on in AM Serum or source Plasma data Potassium 3.5 - 5.1 mmoL/L Normal No Sep 10 informati 2017 6:30 [Moles/vo on in AM lume] in source Serum or data Plasma Sodium 136 - 145 mmoL/L Normal No Sep 10 [Moles/vo informati 2017 6:30 lume] in on in AM Serum or source Plasma data CBC W Auto Differential panel in Blood Observa Value Referen Units Interpr Notes Date tion ce etation Range Basophils 0 - 0.2 K/MM3 Normal No Sep 10 informati 2017 6:30 [#/volume on in AM ] in source Blood by data Automated count Basophils 0.1 - 2.0 % Normal No Sep 10 /100 informati 2017 6:30 leukocyte on in AM s in source Blood by data Automated count Eosinophi 0.0 - 0.4 K/mm3 Normal No Sep 10 ls informati 2017 6:30 [#/volume on in AM ] in source Blood by data Automated count Eosinophi 0.1 - % Normal No Sep 10 ls/100 12.0 informati 2017 6:30 leukocyte on in AM s in source Blood by data Automated count Granulocy 1.8 - 7.8 K/mm3 Normal No Sep 10 xavier informati 2017 6:30 [#/volume on in AM ] in source Blood by data Automated count Granulocy 37.0 - % Normal No Sep 10 xavier/100 80.0 informati 2017 6:30 leukocyte on in AM s in source Blood by data Automated count Hematocri 37.0 - % Low No Sep 10 t [Volume 47.0 informati 2017 6:30 on in AM Fraction] source of Blood data Hemoglobi 12.2 - g/dL Low No Sep 10 n 16.2 informati 2017 6:30 [Mass/vol on in AM ume] in source Blood data Lymphocyt 0.7 - 4.5 K/mm3 Normal No Sep 10 es informati 2017 6:30 [#/volume on in AM ] in source Unspecifi data ed specimen by Automated count Lymphocyt 10 - 50.0 % Normal No Sep 10 es informati 2016 6:30 [#/volume on in AM ] in source Unspecifi data ed specimen by Automated count Erythrocy 27 - 31.2 pg Normal No Sep 10 te mean informati 2017 6:30 corpuscul on in AM ar source hemoglobi data n [Entitic mass] Erythrocy 31.8 - g/dl Normal No Sep 10 te mean 35.4 informati 2017 6:30 corpuscul on in AM ar source hemoglobi data n concentra tion [Mass/vol ume] by Automated count Erythrocy 82.2 - fl Normal No Sep 10 te mean 97.8 informati 2017 6:30 corpuscul on in AM ar volume source [Entitic data volume] by Automated count Monocytes 0.1 - 1.0 K/mm3 Normal No Sep 10 informati 2017 6:30 [#/volume on in AM ] in source Blood by data Automated count Monocytes 1.7 - 9.3 % Normal No Sep 10 /100 informati 2017 6:30 leukocyte on in AM s in source Blood by data Automated count Platelet 7.4 - fl Normal No Sep 10 mean 10.4 informati 2017 6:30 volume on in AM [Entitic source volume] data in Blood by Automated count Platelets 142 - 424 K/mm3 Low No Sep 10 informati 2017 6:30 [#/volume on in AM ] in source Blood data Erythrocy 4.2 - 5.4 M/mm3 Low No Sep 10 xavier informati 2017 6:30 [#/volume on in AM ] in source Amniotic data fluid Erythrocy 11.5 - % Normal No Sep 10 te 17.5 informati 2017 6:30 distribut on in AM ion width source [Entitic data volume] by Automated count Leukocyte 4.8 - K/MM3 Normal No Sep 10 s 10.8 informati 2017 6:30 [#/volume on in AM ] in source Blood data Glucose [Mass/volume] in Capillary blood by Glucometer Observa Value Referen Units Interpr Notes Date tion ce etation Range Glucose 70 - 110 mg/dl High No Sep 10 [Mass/vol informati 2017 6:03 ume] in on in AM Capillary source blood by data Glucomete r Glucose [Mass/volume] in Capillary blood by Glucometer Observa Value Referen Units Interpr Notes Date tion ce etation Range Glucose 70 - 110 mg/dl High No Sep 9 [Mass/vol alert informati 2017 8:02 ume] in on in PM Capillary source blood by data Glucomete r Glucose [Mass/volume] in Capillary blood by Glucometer Observa Value Referen Units Interpr Notes Date tion ce etation Range Glucose 70 - 110 mg/dl High No Sep 9 [Mass/vol alert informati 2017 4:42 ume] in on in PM Capillary source blood by data Glucomete r Glucose [Mass/volume] in Capillary blood by Glucometer Observa Value Referen Units Interpr Notes Date tion ce etation Range Glucose 70 - 110 mg/dl High No Sep 9 [Mass/vol alert informati 2017 ume] in on in 11:29 AM Capillary source blood by data Glucomete r Glucose [Mass/volume] in Capillary blood by Glucometer Observa Value Referen Units Interpr Notes Date tion ce etation Range Glucose 70 - 110 mg/dl High No Sep 9 [Mass/vol alert informati 2016 6:11 ume] in on in AM Capillary source blood by data Glucomete r CBC W Auto Differential panel in Blood Observa Value Referen Units Interpr Notes Date tion ce etation Range Basophils 0 - 0.2 K/MM3 Normal No Sep 9 informati 2016 6:05 [#/volume on in AM ] in source Blood by data Automated count Basophils 0.1 - 2.0 % Normal No Sep 9 /100 informati 2017 6:05 leukocyte on in AM s in source Blood by data Automated count Eosinophi 0.0 - 0.4 K/mm3 Normal No Sep 9 ls informati 2017 6:05 [#/volume on in AM ] in source Blood by data Automated count Eosinophi 0.1 - % Normal No Sep 9 ls/100 12.0 informati 2017 6:05 leukocyte on in AM s in source Blood by data Automated count Granulocy 1.8 - 7.8 K/mm3 Normal No Sep 9 xavier informati 2017 6:05 [#/volume on in AM ] in source Blood by data Automated count Granulocy 37.0 - % Normal No Sep 9 xavier/100 80.0 informati 2017 6:05 leukocyte on in AM s in source Blood by data Automated count Hematocri 37.0 - % Low No Sep 9 t [Volume 47.0 informati 2017 6:05 on in AM Fraction] source of Blood data Hemoglobi 12.2 - g/dL Low No Sep 9 n 16.2 informati 2017 6:05 [Mass/vol on in AM ume] in source Blood data Lymphocyt 0.7 - 4.5 K/mm3 Normal No Sep 9 es informati 2017 6:05 [#/volume on in AM ] in source Unspecifi data ed specimen by Automated count Lymphocyt 10 - 50.0 % Normal No Sep 9 es informati 2017 6:05 [#/volume on in AM ] in source Unspecifi data ed specimen by Automated count Erythrocy 27 - 31.2 pg Normal No Sep 9 te mean informati 2017 6:05 corpuscul on in AM ar source hemoglobi data n [Entitic mass] Erythrocy 31.8 - g/dl Normal No Sep 9 te mean 35.4 informati 2017 6:05 corpuscul on in AM ar source hemoglobi data n concentra tion [Mass/vol ume] by Automated count Erythrocy 82.2 - fl Normal No Sep 9 te mean 97.8 informati 2017 6:05 corpuscul on in AM ar volume source [Entitic data volume] by Automated count Monocytes 0.1 - 1.0 K/mm3 Normal No Sep 9 informati 2017 6:05 [#/volume on in AM ] in source Blood by data Automated count Monocytes 1.7 - 9.3 % Normal No Sep 9 /100 informati 2017 6:05 leukocyte on in AM s in source Blood by data Automated count Platelet 7.4 - fl Normal No Sep 9 mean 10.4 informati 2016 6:05 volume on in AM [Entitic source volume] data in Blood by Automated count Platelets 142 - 424 K/mm3 Low No Sep 9 informati 2016 6:05 [#/volume on in AM ] in source Blood data Erythrocy 4.2 - 5.4 M/mm3 Low No Sep 9 xavier informati 2017 6:05 [#/volume on in AM ] in source Amniotic data fluid Erythrocy 11.5 - % Normal No Sep 9 te 17.5 informati 2016 6:05 distribut on in AM ion width source [Entitic data volume] by Automated count Leukocyte 4.8 - K/MM3 Normal No Sep 9 s 10.8 informati 2016 6:05 [#/volume on in AM ] in source Blood data Bacteria identified in Urine by Culture Observa Value Referen Units Interpr Notes Date tion ce etation Range Bacteri MODERAT No No No No Sep 8 a E informa informa informa informa 2017 identif AMOUNT tion in tion in tion in tion in 10:30 ied in OF source source source source PM Urine YEAST data data data data by NOTED Culture (APPROX . 30 SMALL COLONIE S) Bacteri PLEASE No No No No Sep 8 a CONTACT informa informa informa informa 2017 identif LAB IF tion in tion in tion in tion in 10:30 ied in ID source source source source PM Urine REQUIRE data data data data by D. Culture Bacteri Yeast No No No No Sep 8 a informa informa informa informa 2017 identif tion in tion in tion in tion in 10:30 ied in source source source source PM Urine data data data data by Culture Urinalysis dipstick W Reflex Microscopic panel in Urine Observa Value Referen Units Interpr Notes Date tion ce etation Range Appeara CLEAR CLEAR No No No Sep 8 nce of informa informa informa 2017 Urine tion in tion in tion in 10:30 source source source PM data data data Bilirub NEGATIV NEG No No No Sep 8 in E informa informa informa 2017 [Presen tion in tion in tion in 10:30 ce] in source source source PM Urine data data data by Test strip Erythro NEGATIV NEG No No No Sep 8 cytes E informa informa informa 2017 [Presen tion in tion in tion in 10:30 ce] in source source source PM Urine data data data Color YELLOW YELLOW No No No Sep 8 of informa informa informa 2017 Urine tion in tion in tion in 10:30 source source source PM data data data Glucose NEG No High No Sep 8 [Mass/vol informati informati 2017 ume] in on in on in 10:30 PM Urine by source source Test data data strip Ketones NEGATIV NEG mg/dL No No Sep 8 E informa informa 2017 [Presen tion in tion in 10:30 ce] in source source PM Urine data data by Automat ed test strip Mucus 1+ NEG No Abnorma No Sep 8 [Presen informa l informa 2016 ce] in tion in tion in 10:30 Urine source source PM sedimen data data t by Light microsc opy Nitrite NEGATIV NEG No No No Sep 8 E informa informa informa 2016 [Presen tion in tion in tion in 10:30 ce] in source source source PM Urine data data data by Test strip pH of 5.0 - 8.5 No Normal No Sep 8 Urine informati informati 2017 on in on in 10:30 PM source source data data Protein NEG mg/dL No No Sep 8 [Mass/vol informati informati 2017 ume] in on in on in 10:30 PM Urine by source source Automated data data test strip Specific 1.005 - No Normal No Sep 8 gravity 1.030 informati informati 2017 of Urine on in on in 10:30 PM source source data data Urobili 0.2 NEG E.U./dL No No Sep 8 nogen informa informa 2017 [Presen tion in tion in 10:30 ce] in source source PM Urine data data by Test strip Leukocy [10 O wbc/hpf No No Sep 8 xavier wbc/hpf informa informa 2017 [#/volu ; 20 tion in tion in 10:30 me] in wbc/hpf source source PM Urine ] data data Yeast 2+ NONE No No No Sep 8 [Presen informa informa informa 2017 ce] in tion in tion in tion in 10:30 Urine source source source PM sedimen data data data t by Light microsc opy Urinalysis dipstick W Reflex Microscopic panel in Urine Observa Value Referen Units Interpr Notes Date tion ce etation Range Appeara CLEAR CLEAR No No No Sep 8 nce of informa informa informa 2017 Urine tion in tion in tion in 10:30 source source source PM data data data Bilirub NEGATIV NEG No No No Sep 8 in E informa informa informa 2017 [Presen tion in tion in tion in 10:30 ce] in source source source PM Urine data data data by Test strip Erythro NEGATIV NEG No No No Sep 8 cytes E informa informa informa 2017 [Presen tion in tion in tion in 10:30 ce] in source source source PM Urine data data data Color YELLOW YELLOW No No No Sep 8 of informa informa informa 2017 Urine tion in tion in tion in 10:30 source source source PM data data data Glucose NEG No High No Sep 8 [Mass/vol informati informati 2017 ume] in on in on in 10:30 PM Urine by source source Test data data strip Ketones NEGATIV NEG mg/dL No No Sep 8 E informa informa 2016 [Presen tion in tion in 10:30 ce] in source source PM Urine data data by Automat ed test strip Mucus 1+ NEG No Abnorma No Sep 8 [Presen informa l informa 2016 ce] in tion in tion in 10:30 Urine source source PM sedimen data data t by Light microsc opy Nitrite NEGATIV NEG No No No Sep 8 E informa informa informa 2016 [Presen tion in tion in tion in 10:30 ce] in source source source PM Urine data data data by Test strip pH of 5.0 - 8.5 No Normal No Sep 8 Urine informati informati 2017 on in on in 10:30 PM source source data data Protein NEG mg/dL No No Sep 8 [Mass/vol informati informati 2017 ume] in on in on in 10:30 PM Urine by source source Automated data data test strip Specific 1.005 - No Normal No Sep 8 gravity 1.030 informati informati 2017 of Urine on in on in 10:30 PM source source data data Urobili 0.2 NEG E.U./dL No No Sep 8 nogen informa informa 2017 [Presen tion in tion in 10:30 ce] in source source PM Urine data data by Test strip INR in Blood by Coagulation assay Observa Value Referen Units Interpr Notes Date tion ce etation Range IS PATIENT ON ANTICOAGULANTS? N INR in 0.9 - 1.1 No Normal INDICATIO Sep 8 Blood by informati N 2017 Coagulati on in 10:10 PM on assay source INR data RANGETHER APY FOR DVT, PE, ATRIAL FIB; 2.0 - 3.0PROPHY LAXIS FOR VTETHERAP Y FOR MECHANICA L HEART 2.5 - 3.5VALVE; PREVENTIO N OF SYSTEMICE MBOLISM SECONDARY TO AMI Prothromb 9.4 - SECONDS Normal No Sep 8 in time 11.8 inform2016 (PT) in on in 10:10 PM Platelet source poor data plasma by Coagulati on assay CBC W Auto Differential panel in Blood Observa Value Referen Units Interpr Notes Date tion ce etation Range Basophils 0 - 0.2 K/MM3 Normal No Sep 8 2016 [#/volume on in 10:10 PM ] in source Blood by data Automated count Basophils 0.1 - 2.0 % Normal No Sep 8 /100 2016 leukocyte on in 10:10 PM s in source Blood by data Automated count Eosinophi 0.0 - 0.4 K/mm3 Normal No Sep 8 ls 2016 [#/volume on in 10:10 PM ] in source Blood by data Automated count Eosinophi 0.1 - % Normal No Sep 8 ls/100 12.0 inform2016 leukocyte on in 10:10 PM s in source Blood by data Automated count Granulocy 1.8 - 7.8 K/mm3 Normal No Sep 8 xavier informati 2016 [#/volume on in 10:10 PM ] in source Blood by data Automated count Granulocy 37.0 - % Normal No Sep 8 xavier/100 80.0 inform2016 leukocyte on in 10:10 PM s in source Blood by data Automated count Hematocri 37.0 - % Low No Sep 8 t [Volume 47.0 inform2016 on in 10:10 PM Fraction] source of Blood data Hemoglobi 12.2 - g/dL Low No Sep 8 n 16.2 inform 2017 [Mass/vol on in 10:10 PM ume] in source Blood data Lymphocyt 0.7 - 4.5 K/mm3 Normal No Sep 8 es inform 2017 [#/volume on in 10:10 PM ] in source Unspecifi data ed specimen by Automated count Lymphocyt 10 - 50.0 % Normal No Sep 8 es 2017 [#/volume on in 10:10 PM ] in source Unspecifi data ed specimen by Automated count Erythrocy 27 - 31.2 pg Normal No Sep 8 te mean inform 2017 corpuscul on in 10:10 PM ar source hemoglobi data n [Entitic mass] Erythrocy 31.8 - g/dl Normal No Sep 8 te mean 35.4 inform 2017 corpuscul on in 10:10 PM ar source hemoglobi data n concentra tion [Mass/vol ume] by Automated count Erythrocy 82.2 - fl Normal No Sep 8 te mean 97.8 inform2016 corpuscul on in 10:10 PM ar volume source [Entitic data volume] by Automated count Monocytes 0.1 - 1.0 K/mm3 Normal No Sep 8 2016 [#/volume on in 10:10 PM ] in source Blood by data Automated count Monocytes 1.7 - 9.3 % Normal No Sep 8 /100 2017 leukocyte on in 10:10 PM s in source Blood by data Automated count Platelet 7.4 - fl Normal No Sep 8 mean 10.4 inform2016 volume on in 10:10 PM [Entitic source volume] data in Blood by Automated count Platelets 142 - 424 K/mm3 Low No Sep 8 2016 [#/volume on in 10:10 PM ] in source Blood data Erythrocy 4.2 - 5.4 M/mm3 Low No Sep 8 xavier 2016 [#/volume on in 10:10 PM ] in source Amniotic data fluid Erythrocy 11.5 - % Normal No Sep 8 te 17.5 2016 distribut on in 10:10 PM ion width source [Entitic data volume] by Automated count Leukocyte 4.8 - K/MM3 Normal No Sep 8 s 10.8 inform2016 [#/volume on in 10:10 PM ] in source Blood data Glucose [Mass/volume] in Capillary blood by Glucometer Observa Value Referen Units Interpr Notes Date tion ce etation Range Glucose 70 - 110 mg/dl High No Sep 8 [Mass/vol alert 2016 9:18 ume] in on in PM Capillary source blood by data Glucomete r CBC W Auto Differential panel in Blood Observa Value Referen Units Interpr Notes Date tion ce etation Range Basophils 0 - 0.2 K/MM3 Normal No Sep 1 2016 [#/volume on in 11:35 AM ] in source Blood by data Automated count Basophils 0.1 - 2.0 % Normal No Sep 1 /100 inform2016 leukocyte on in 11:35 AM s in source Blood by data Automated count Eosinophi 0.0 - 0.4 K/mm3 Normal No Sep 1 ls inform2016 [#/volume on in 11:35 AM ] in source Blood by data Automated count Eosinophi 0.1 - % Normal No Sep 1 ls/100 12.0 inform2016 leukocyte on in 11:35 AM s in source Blood by data Automated count Granulocy 1.8 - 7.8 K/mm3 Normal No Sep 1 xavier 2016 [#/volume on in 11:35 AM ] in source Blood by data Automated count Granulocy 37.0 - % Normal No Sep 1 xavier/100 80.0 inform2016 leukocyte on in 11:35 AM s in source Blood by data Automated count Hematocri 37.0 - % Normal No Sep 1 t [Volume 47.0 2016 on in 11:35 AM Fraction] source of Blood data Hemoglobi 12.2 - g/dL Normal No Sep 1 n 16.2 inform2016 [Mass/vol on in 11:35 AM ume] in source Blood data Lymphocyt 0.7 - 4.5 K/mm3 Normal No Sep 1 es 2016 [#/volume on in 11:35 AM ] in source Unspecifi data ed specimen by Automated count Lymphocyt 10 - 50.0 % Normal No Sep 1 es inform2016 [#/volume on in 11:35 AM ] in source Unspecifi data ed specimen by Automated count Erythrocy 27 - 31.2 pg Normal No Sep 1 te mean inform2016 corpuscul on in 11:35 AM ar source hemoglobi data n [Entitic mass] Erythrocy 31.8 - g/dl Normal No Sep 1 te mean 35.4 inform2016 corpuscul on in 11:35 AM ar source hemoglobi data n concentra tion [Mass/vol ume] by Automated count Erythrocy 82.2 - fl Normal No Sep 1 te mean 97.8 2016 corpuscul on in 11:35 AM ar volume source [Entitic data volume] by Automated count Monocytes 0.1 - 1.0 K/mm3 Normal No Sep 1 inform2016 [#/volume on in 11:35 AM ] in source Blood by data Automated count Monocytes 1.7 - 9.3 % Normal No Sep 1 /100 inform 2017 leukocyte on in 11:35 AM s in source Blood by data Automated count Platelets 142 - 424 K/mm3 Low No Sep 1 informati 2016 [#/volume on in 11:35 AM ] in source Blood data Erythrocy 4.2 - 5.4 M/mm3 Normal No Sep 1 xavier inform2016 [#/volume on in 11:35 AM ] in source Amniotic data fluid Erythrocy 11.5 - % Normal No Sep 1 te 17.5 informati 2016 distribut on in 11:35 AM ion width source [Entitic data volume] by Automated count Leukocyte 4.8 - K/MM3 Normal No Sep 1 s 10.8 informati 2016 [#/volume on in 11:35 AM ] in source Blood data Urinalysis dipstick W Reflex Microscopic panel in Urine Observa Value Referen Units Interpr Notes Date tion ce etation Range Collected by nurse? Y Hold specimen in OE? N Appeara CLEAR CLEAR No No No Dec 23 nce of informa informa informa 2016 Urine tion in tion in tion in 2:40 PM source source source data data data Bacteri 1+ O No No No Dec 23 a informa informa informa 2016 [Presen tion in tion in tion in 2:40 PM ce] in source source source Urine data data data sedimen t by Light microsc opy Bilirub NEGATIV NEG No No No Dec 23 in E informa informa informa 2016 [Presen tion in tion in tion in 2:40 PM ce] in source source source Urine data data data by Test strip Erythro NEGATIV NEG No No No Dec 23 cytes E informa informa informa 2016 [Presen tion in tion in tion in 2:40 PM ce] in source source source Urine data data data Color YELLOW YELLOW No No No Dec 23 of informa informa informa 2017 Urine tion in tion in tion in 2:40 PM source source source data data data Glucose NEG No No No Dec 23 [Mass/vol informati informati informati 2016 2:40 ume] in on in on in on in PM Urine by source source source Test data data data strip Ketones NEGATIV NEG mg/dL No No Dec 23 E informa informa 2016 [Presen tion in tion in 2:40 PM ce] in source source Urine data data by Automat ed test strip Mucus 1+ NEG No Abnorma No Dec 23 [Presen informa l informa 2016 ce] in tion in tion in 2:40 PM Urine source source sedimen data data t by Light microsc opy Nitrite NEGATIV NEG No No No Dec 23 E informa informa informa 2016 [Presen tion in tion in tion in 2:40 PM ce] in source source source Urine data data data by Test strip pH of 5.0 - 8.5 No Normal No Dec 23 Urine informati informati 2017 2:40 on in on in PM source source data data Protein NEG mg/dL No No Dec 23 [Mass/vol informati informati 2017 2:40 ume] in on in on in PM Urine by source source Automated data data test strip Erythro NONE 0 rbc/hpf No No Dec 23 cytes informa informa 2016 [Presen tion in tion in 2:40 PM ce] in source source Urine data data sedimen t by Light microsc opy Specific 1.005 - No Normal No Dec 23 gravity 1.030 informati informati 2017 2:40 of Urine on in on in PM source source data data Epithel OCC 0 - 5 #/hpf No No Dec 23 ial informa informa 2017 cells.s tion in tion in 2:40 PM quamous source source data data [Presen ce] in Urine sedimen t by Microsc opy high power field Urobili 0.2 NEG E.U./dL No No Dec 23 nogen informa informa 2016 [Presen tion in tion in 2:40 PM ce] in source source Urine data data by Test strip Leukocyte O wbc/hpf No No Dec 23 s informati informati 2017 2:40 [#/volume on in on in PM ] in source source Urine data data Urinalysis dipstick W Reflex Microscopic panel in Urine Observa Value Referen Units Interpr Notes Date tion ce etation Range Collected by nurse? Y Hold specimen in OE? N Appeara CLEAR CLEAR No No No Dec 23 nce of informa informa informa 2016 Urine tion in tion in tion in 2:40 PM source source source data data data Bilirub NEGATIV NEG No No No Dec 23 in E informa informa informa 2016 [Presen tion in tion in tion in 2:40 PM ce] in source source source Urine data data data by Test strip Erythro NEGATIV NEG No No No Dec 23 cytes E informa informa informa 2016 [Presen tion in tion in tion in 2:40 PM ce] in source source source Urine data data data Color YELLOW YELLOW No No No Dec 23 of informa informa informa 2016 Urine tion in tion in tion in 2:40 PM source source source data data data Glucose NEG No No No Dec 23 [Mass/vol informati informati informati 2016 2:40 ume] in on in on in on in PM Urine by source source source Test data data data strip Ketones NEGATIV NEG mg/dL No No Dec 23 E informa informa 2016 [Presen tion in tion in 2:40 PM ce] in source source Urine data data by Automat ed test strip Mucus 1+ NEG No Abnorma No Dec 23 [Presen informa l informa 2016 ce] in tion in tion in 2:40 PM Urine source source sedimen data data t by Light microsc opy Nitrite NEGATIV NEG No No No Dec 23 E informa informa informa 2016 [Presen tion in tion in tion in 2:40 PM ce] in source source source Urine data data data by Test strip pH of 5.0 - 8.5 No Normal No Dec 23 Urine informati informati 2017 2:40 on in on in PM source source data data Protein NEG mg/dL No No Dec 23 [Mass/vol informati informati 2016 2:40 ume] in on in on in PM Urine by source source Automated data data test strip Specific 1.005 - No Normal No Dec 23 gravity 1.030 informati informati 2017 2:40 of Urine on in on in PM source source data data Urobili 0.2 NEG E.U./dL No No Dec 23 nogen informa informa 2016 [Presen tion in tion in 2:40 PM ce] in source source Urine data data by Test strip Urinalysis dipstick W Reflex Microscopic panel in Urine Observa Value Referen Units Interpr Notes Date tion ce etation Range Collected by nurse? Y Hold specimen in OE? N Appeara SL CLEAR No No No Dec 13 nce of CLOUDY informa informa informa 2017 Urine tion in tion in tion in 3:00 PM source source source data data data Bacteri 4+ O No No No Dec 13 a informa informa informa 2016 [Presen tion in tion in tion in 3:00 PM ce] in source source source Urine data data data sedimen t by Light microsc opy Bilirub NEGATIV NEG No No No Dec 13 in E informa informa informa 2016 [Presen tion in tion in tion in 3:00 PM ce] in source source source Urine data data data by Test strip Erythro TRACE-L NEG No No No Dec 13 cytes YSED informa informa informa 2016 [Presen tion in tion in tion in 3:00 PM ce] in source source source Urine data data data Color YELLOW YELLOW No No No Dec 13 of informa informa informa 2016 Urine tion in tion in tion in 3:00 PM source source source data data data Glucose NEG No High No Dec 13 [Mass/vol informati informati 2016 3:00 ume] in on in on in PM Urine by source source Test data data strip Hyaline 3-5 NONE #/lpf No No Dec 13 casts informa informa 2016 [Presen tion in tion in 3:00 PM ce] in source source Urine data data sedimen t by Light microsc opy Ketones NEGATIV NEG mg/dL No No Dec 13 E informa informa 2016 [Presen tion in tion in 3:00 PM ce] in source source Urine data data by Automat ed test strip Mucus 1+ NEG No Abnorma No Dec 13 [Presen informa l informa 2016 ce] in tion in tion in 3:00 PM Urine source source sedimen data data t by Light microsc opy Nitrite NEGATIV NEG No No No Dec 13 E informa informa informa 2016 [Presen tion in tion in tion in 3:00 PM ce] in source source source Urine data data data by Test strip pH of 5.0 - 8.5 No Normal No Dec 13 Urine informati informati 2017 3:00 on in on in PM source source data data Protein NEG mg/dL No No Dec 13 [Mass/vol informati informati 2016 3:00 ume] in on in on in PM Urine by source source Automated data data test strip Erythro OCC 0 rbc/hpf No No Dec 13 cytes informa informa 2016 [Presen tion in tion in 3:00 PM ce] in source source Urine data data sedimen t by Light microsc opy Specific 1.005 - No Normal No Dec 13 gravity 1.030 informati informati 2016 3:00 of Urine on in on in PM source source data data Epithel 5-10 0 - 5 #/hpf No No Dec 13 ial informa informa 2016 cells.s tion in tion in 3:00 PM quamous source source data data [Presen ce] in Urine sedimen t by Microsc opy high power field Urobili 0.2 NEG E.U./dL No No Dec 13 nogen informa informa 2016 [Presen tion in tion in 3:00 PM ce] in source source Urine data data by Test strip Leukocy [20 O wbc/hpf No No Dec 13 xavier wbc/hpf informa informa 2016 [#/volu ; 50 tion in tion in 3:00 PM me] in wbc/hpf source source Urine ] data data Urinalysis dipstick W Reflex Microscopic panel in Urine Observa Value Referen Units Interpr Notes Date tion ce etation Range Collected by nurse? Y Hold specimen in OE? N Appeara SL CLEAR No No No Dec 13 nce of CLOUDY informa informa informa 2017 Urine tion in tion in tion in 3:00 PM source source source data data data Bilirub NEGATIV NEG No No No Dec 13 in E informa informa informa 2016 [Presen tion in tion in tion in 3:00 PM ce] in source source source Urine data data data by Test strip Erythro TRACE-L NEG No No No Dec 13 cytes YSED informa informa informa 2016 [Presen tion in tion in tion in 3:00 PM ce] in source source source Urine data data data Color YELLOW YELLOW No No No Dec 13 of informa informa informa 2016 Urine tion in tion in tion in 3:00 PM source source source data data data Glucose NEG No High No Dec 13 [Mass/vol informati informati 2016 3:00 ume] in on in on in PM Urine by source source Test data data strip Ketones NEGATIV NEG mg/dL No No Dec 13 E informa informa 2016 [Presen tion in tion in 3:00 PM ce] in source source Urine data data by Automat ed test strip Mucus 1+ NEG No Abnorma No Dec 13 [Presen informa l inform2016 ce] in tion in tion in 3:00 PM Urine source source sedimen data data t by Light microsc opy Nitrite NEGATIV NEG No No No Dec 13 E informa informa informa 2016 [Presen tion in ti in tion in 3:00 PM ce] in source source source Urine data data data by Test strip pH of 5.0 - 8.5 No Normal No Dec 13 Urine informati informati 2016 3:00 on in on in PM source source data data Protein NEG mg/dL No No Dec 13 [Mass/vol informati informati 2016 3:00 ume] in on in on in PM Urine by source source Automated data data test strip Specific 1.005 - No Normal No Dec 13 gravity 1.030 informati informati 2016 3:00 of Urine on in on in PM source source data data Urobili 0.2 NEG E.U./dL No No Dec 13 nogen informa informa 2016 [Presen tion in tion in 3:00 PM ce] in source source Urine data data by Test strip Urinalysis dipstick W Reflex Microscopic panel in Urine Observa Value Referen Units Interpr Notes Date tion ce etation Range COMMENTS TO MILL WORK: URINALYSIS WITH CULTURE IF INDICATED SPECIMEN COMMENT: CATHETER SPEC Collected by nurse? Y Hold specimen in OE? N Appeara CLOUDY CLEAR No No No November 11 nce of informa informa informa 2016 Urine tion in tion in tion in source source source data data data Bacteri 2+ O No No No November 11 a informa informa informa 2016 [Presen tion in tion in tion in ce] in source source source Urine data data data sedimen t by Light microsc opy Bilirub NEGATIV NEG No No No November 11 in E informa informa informa 2016 [Presen tion in tion in tion in ce] in source source source Urine data data data by Test strip Erythro TRACE-L NEG No No No November 11 cytes YSED informa informa informa 2016 [Presen tion in tion in tion in ce] in source source source Urine data data data Color STRAW YELLOW No No No November 11 of informa informa informa 2016 Urine tion in tion in tion in source source source data data data Glucose NEG No High No November 11 [Mass/vol informati informati 2016 ume] in on in on in Urine by source source Test data data strip Ketones NEGATIV NEG mg/dL No No November 11 E informa informa 2016 [Presen tion in tion in ce] in source source Urine data data by Automat ed test strip Mucus 1+ NEG No Abnorma No November 11 [Presen informa l informa 2016 ce] in tion in tion in Urine source source sedimen data data t by Light microsc opy Nitrite NEGATIV NEG No No No November 11 E informa informa informa 2016 [Presen tion in tion in tion in ce] in source source source Urine data data data by Test strip pH of 5.0 - 8.5 No Normal No November 11 Urine informati informati 2016 on in on in source source data data Protein NEG mg/dL No No November 11 [Mass/vol informati informati 2016 ume] in on in on in Urine by source source Automated data data test strip Specific 1.005 - No Normal No November 11 gravity 1.030 informati informati 2016 of Urine on in on in source source data data Epithel OCC 0 - 5 #/hpf No No November 11 ial informa informa 2016 cells.s tion in tion in quamous source source data data [Presen ce] in Urine sedimen t by Microsc opy high power field Urobili 0.2 NEG E.U./dL No No November 11 nogen informa informa 2016 [Presen tion in tion in ce] in source source Urine data data by Test strip Leukocy [20 O wbc/hpf No No November 11 xavier wbc/hpf informa informa 2016 [#/volu ; 50 tion in tion in md] in wbc/hpf source source Urine ] data data Urinalysis dipstick W Reflex Microscopic panel in Urine Observa Value Referen Units Interpr Notes Date tion ce etation Range COMMENTS TO MILL WORK: URINALYSIS WITH CULTURE IF INDICATED SPECIMEN COMMENT: CATHETER SPEC Collected by nurse? Y Hold specimen in OE? N Appeara CLOUDY CLEAR No No No November 11 nce of informa informa informa 2016 Urine tion in tion in tion in source source source data data data Bilirub NEGATIV NEG No No No November 11 in E informa informa informa 2016 [Presen tion in tion in tion in ce] in source source source Urine data data data by Test strip Erythro TRACE-L NEG No No No November 11 cytes YSED informa informa informa 2016 [Presen tion in tion in tion in ce] in source source source Urine data data data Color STRAW YELLOW No No No November 11 of informa informa informa 2016 Urine tion in tion in tion in source source source data data data Glucose NEG No High No November 11 [Mass/vol informati informati 2016 ume] in on in on in Urine by source source Test data data strip Ketones NEGATIV NEG mg/dL No No November 11 E informa informa 2016 [Presen tion in tion in ce] in source source Urine data data by Automat ed test strip Mucus 1+ NEG No Abnorma No November 11 [Presen informa l informa 2016 ce] in tion in tion in Urine source source sedimen data data t by Light microsc opy Nitrite NEGATIV NEG No No No November 11 E informa informa informa 2016 [Presen tion in tion in tion in ce] in source source source Urine data data data by Test strip pH of 5.0 - 8.5 No Normal No November 11 Urine informati informati 2016 on in on in source source data data Protein NEG mg/dL No No November 11 [Mass/vol informati informati 2016 ume] in on in on in Urine by source source Automated data data test strip Specific 1.005 - No Normal No November 11 gravity 1.030 informati informati 2017 of Urine on in on in source source data data Urobili 0.2 NEG E.U./dL No No November 11 nogbwoen informa informa 2017 [Presen tion in tion in ce] in source source Urine data data by Test strip
--- OUTSIDE RECORDS SUMMARY | 2017-03-26 17:39 | External Medical Summary Rpt ---
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
--- OUTSIDE RECORDS SUMMARY | 2017-03-26 17:57 | External Medical Summary Rpt ---
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 Name Role Phone Lj Ballesteros MD, Unavailable Unavailable Lj Ballesteros MD Purpose Continuity of Care Document - 09-07-2012 through 2016 Problems Code Diagnosis DOS Provider Status [id number] Asthma [facility] 250.60 Diabetic [place] peripheral [facility] [id number] Migraine [facility] [id number] Osteoarthri [facility] 401.9 Essential [place] hypertensio [facility] 427.31 Atrial [place] fibrillatio [facility] 427.81 Sick sinus [place] syndrome [facility] [id number] Diabetes [place] mellitus [facility] type 2 [facility] 447.6 Vasculitis [facility] [id number] Rheumatoid [place] arthritis [facility] [id number] Chronic [facility] Allergies, Adverse Reactions, Alerts Type [...] er -A 2 CE Ac TA ti AL ve NO PH EN 5- 32 5 [...] 00 12 0 No SO 18 -2 TN 50 4- Lo OL 77 20 ng [...] ti 4 ve MG /2 ML AL TN 00 05 0 No OM 64 -0 [...] e 017 mmol/L ed Bld-sCn 17:00 c Vancomycin SerPl-mCnc (10-31-2016 03:37) Vancomy 7.2 0-40.0 complet martha 017 ug/mL ed SerPl-m 03:37 Cnc Magnesium SerPl-mCnc (10-31-2016 03:37) Magnesi 1.9 1.9-2.4 complet um 017 mg/dL ed SerPl-m 03:37 Cnc Phosphate SerPl-mCnc (10-31-2016 03:37) Phospha 3.1 2.5-4.5 complet te 017 mg/dL ed SerPl-m 03:37 Cnc Lactate Bld-sCnc (10-31-2016 03:33) Lactate 0.4 complet 017 mmol/L ed Bld-sCn 03:33 c Bacteria Ur Cult (10-30-2016 00:25) CC XXX NOTAP complet VC-aCnc 017 NOT ed 00:25 APPLICA BLE L Bacteri [id number] complet a XXX 017 5 yeast ed Anaerob 00:25 e+Aerob (organi e Cult sm) SCT YEAST YEAST L Bacteria XXX Anaerobe+Aerobe Cult (10-29-2016 23:33) Bacteri NGB2 NO complet a XXX 017 GROWTH ed Anaerob 23:33 DAY 2. e+Aerob L e Cult Lactate Bld-sCnc (10-29-2016 21:54) Lactate 1.3 complet 017 mmol/L ed Bld-sCn 21:54 c CRP SerPl-mCnc (10-29-2016 21:54) CRP 3.1 0-0.9 complet SerPl-m 017 mg/dL ed Cnc 21:54 CK SerPl-cCnc (10-29-2016 21:54) CK 1449 37-168 complet SerPl-c 017 U/L ed Cnc 21:54 Lipase SerPl-cCnc (10-29-2016 21:54) Lipase 20 U/L 19-63 complet SerPl-c 017 ed Cnc 21:54 ESR Bld Qn (10-03-2016 10:37) ESR Bld 48 0-20 complet Qn 017 mm/hr ed 10:37 Hgb A1c MFr Bld (10-03-2016 10:37) Hgb A1c 7.3 % 4.7-6.0 complet MFr 017 ed Bld 10:37 Fungus Tiss Cult (08-01-2016 16:33) Bacteri [id number] complet a XXX 017 03 ed Anaerob 16:33 sample: e+Aerob fungus e Cult not isolate d (findin g) SCT NF21 NO FUNGAL GROWTH AT 3 WEEKS L Bacteri [id number] complet a XXX 017 03 ed Anaerob 16:33 sample: e+Aerob fungus e Cult not isolate d (findin g) SCT NF42 NO FUNGAL GROWTH AT 6 WEEKS L Mycobacterium XXX Ql Cult (08-01-2016 16:33) Bacteri [id number] complet a XXX 017 00 not ed Anaerob 16:33 isolate e+Aerob d e Cult (qualif ier value) SCT NM21 NO ACID FAST BACILLI ISOLATE D AT 3 WEEKS L Bacteri [id number] complet a XXX 017 00 not ed Anaerob 16:33 isolate e+Aerob d e Cult (qualif ier value) SCT NM42 NO ACID FAST BACILLI ISOLATE D AT 6 WEEKS L PT BldC (04-27-2016 08:40) PT PPP 14.3 12.8-15 complet 016 seconds .2 ed 08:40 INR PPP 1.2 0.8-1.2 complet 016 ed 08:40 Comment: Serial Number: [id number] Cash Shortage Investigator: [id number] Bas Metab 2000 Pnl SerPl (04-27-2016 08:23) Comment: Meter: [id number] Cash Shortage Investigator: [id number] Sami Haddad Glucose 163 70-130 complet BldC [...] K/MM3 ed Bld 05:55 Auto Glucose dC [facility] (06-11-2013 11:48) Glucose 06-11-2 395 70-110 High complet BldC 013 mg/dl alert ed Glucomt 11:48 [facility] Glucose dC [facility]comtr[facility] (06-11-2013 06:28) Glucose 06-11-2 235 70-110 complet BldC 013 mg/dl ed Glucomt 06:28 [facility] COMPREHENSIVE METABOLIC PANEL (06-11-2013 01:05) Glucose 06-11-2 351 74-106 complet 013 mg/dL ed d[facility] 01:05 c BUN 12-24-2 17 7-18 complet [...] MATHIS MD (ER) 4 10:37 4 12:58 [facility] Emergency ANGELINA Webster (ER) 4 05:33 4 11:02 [facility] Manny E. Inpatient DENG Ballesteros MD (IN) 3 00:52 3 03:03 [facility] Emergency ANGELINA Ward MD (ER) 3 10:19 3 12:32 [facility] Emergency ANGELINA MATHIS MD (ER) 3 13:59 3 15:36 [facility] Emergency ANGELINA Ward MD (ER) 3 15:47 3 18:22 [facility] Emergency ANGELINA Webster (ER) 3 10:13 3 12:44 [facility] Manny E. Emergency ANGELINA DIOP MD (ER) 3 14:00 3 16:40 [facility]
--- OUTSIDE RECORDS SUMMARY | 2017-03-26 17:57 | External Medical Summary Rpt ---
Author Author , SAEID Organization [facility] Address Unknown Phone [email or web address] Care Team Providers Care Poultry Dressing Worker Name Role Phone Lj Ballesteros MD, Unavailable Unavailable Lj Ballesteros MD Purpose Continuity of Care Document - 09-07-2012 through 2016 Problems Code Diagnosis DOS Provider Status [id number] Asthma [facility] 250.60 Diabetic [place] peripheral [facility] [id number] Migraine [facility] [id number] Osteoarthri [facility] 401.9 Essential [place] hypertensio [facility] 427.31 Atrial [place] fibrillatio [facility] 427.81 Sick sinus [place] syndrome [facility] [id number] Diabetes [place] mellitus [facility] type 2 [facility] 447.6 Vasculitis [facility] [id number] Rheumatoid [place] arthritis [facility] [id number] Chronic [facility] Allergies, Adverse Reactions, Alerts Type Allergy [...] er -A 2 CE Ac TA ti MS ve NO PH EN 5- 32 5 [...] 00 12 0 No SO 18 -2 MN 50 4- Lo OL 77 20 ng [...] ti 4 ve MG /2 ML AL MN 00 05 0 No OM 64 -0 [...] NOT ed 00:25 APPLICA BLE L Bacteri [id number] complet a XXX 017 5 yeast ed [...] 10:37 Fungus Tiss Cult (08-01-2016 16:33) Bacteri [id number] complet a XXX 017 03 ed Anaerob 16:33 sample: e+Aerob fungus e Cult not isolate d (findin g) SCT NF21 NO FUNGAL GROWTH AT 3 WEEKS L Bacteri [id number] complet a XXX 017 03 ed Anaerob 16:33 sample: e+Aerob fungus e Cult not isolate d (findin g) SCT NF42 NO FUNGAL GROWTH AT 6 WEEKS L Mycobacterium XXX Ql Cult (08-01-2016 16:33) Bacteri [id number] complet a XXX 017 00 not ed Anaerob 16:33 isolate e+Aerob d e Cult (qualif ier value) SCT NM21 NO ACID FAST BACILLI ISOLATE D AT 3 WEEKS L Bacteri [id number] complet a XXX 017 00 not ed Anaerob 16:33 isolate e+Aerob d e Cult (qualif ier value) SCT NM42 NO ACID FAST BACILLI ISOLATE D AT 6 WEEKS L PT BldC (04-27-2016 08:40) PT PPP 14.3 12.8-15 complet 016 seconds .2 ed 08:40 INR PPP 1.2 0.8-1.2 complet 016 ed 08:40 Comment: Serial Number: [id number] Wiring Mechanic: [id number] Bas Metab 2000 Pnl SerPl (04-27-2016 08:23) Comment: Meter: [id number] Wiring Mechanic: [id number] Sami Haddda Glucose 163 70-130 complet BldC 016 mg/dL [...] K/MM3 ed Bld 05:55 Auto Glucose dC Glucomtr-[facility] (06-11-2013 11:48) Glucose 06-11-2 395 70-110 High complet BldC 013 mg/dl alert ed Glucomt 11:48 [facility] Glucose dC Glucomtr-[facility] (06-11-2013 06:28) Glucose 06-11-2 235 70-110 complet BldC 013 mg/dl ed Glucomt 06:28 [facility] COMPREHENSIVE METABOLIC PANEL (06-11-2013 01:05) Glucose 06-11-2 351 74-106 complet 013 mg/dL ed d-[facility] 01:05 c BUN 12-24-2 17 7-18 complet [...] MATHIS MD (ER) 4 10:37 4 12:58 [facility] Emergency ANGELINA Webster (ER) 4 05:33 4 11:02 [facility] Manny E. Inpatient DENG Ballesteros MD (IN) 3 00:52 3 03:03 [facility] Emergency ANGELINA Ward MD (ER) 3 10:19 3 12:32 [facility] Emergency ANGELINA MATHIS MD (ER) 3 13:59 3 15:36 [facility] Emergency ANGELINA Ward MD (ER) 3 15:47 3 18:22 [facility] Emergency ANGELINA Webster (ER) 3 10:13 3 12:44 [facility] M[facility] E. Emergency ANGELINA DIOP MD (ER) 3 14:00 3 16:40 [facility]
--- OUTSIDE RECORDS SUMMARY | 2017-03-26 17:58 | External Medical Summary Rpt ---
Demographics Preferred Language [place]ese Marital Status Unknown Muslim Affiliation Unknown Race Unknown Ethnic Group Unknown Author Author SAEID Address Unknown Phone Immunization No patient found.
--- OUTSIDE RECORDS SUMMARY | 2017-03-26 17:58 | External Medical Summary Rpt ---
Demographics Preferred Language Namibian Marital Status Unknown Yazdanism Affiliation Unknown Race Unknown Ethnic Group Unknown Author Author SAEID Address Unknown Phone Immunization No patient found.
--- OUTSIDE RECORDS SUMMARY | 2017-03-26 17:59 | External Medical Summary Rpt ---
[...] Date tion ce etation Range COMMENTS TO BENZENE STILL UTILITY OPERATOR: URINALYSIS WITH CULTURE IF INDICATED SPECIMEN COMMENT: [...] [#/volu ; 50 tion in tion in va] in wbc/hpf source source Urine ] data data Urinalysis dipstick W Reflex Microscopic panel in Urine Observa Value Referen Units Interpr Notes Date tion ce etation Range COMMENTS TO BENZENE STILL UTILITY OPERATOR: URINALYSIS WITH CULTURE IF INDICATED SPECIMEN COMMENT: [...]
--- OUTSIDE RECORDS SUMMARY | 2017-03-26 17:59 | External Medical Summary Rpt ---
[...] Date tion ce etation Range COMMENTS TO AERONAUTICAL ENGINEERING TEACHER: URINALYSIS WITH CULTURE IF INDICATED SPECIMEN COMMENT: [...] [#/volu ; 50 tion in tion in ms] in wbc/hpf source source Urine ] data data Urinalysis dipstick W Reflex Microscopic panel in Urine Observa Value Referen Units Interpr Notes Date tion ce etation Range COMMENTS TO AERONAUTICAL ENGINEERING TEACHER: URINALYSIS WITH CULTURE IF INDICATED SPECIMEN COMMENT: [...]
== END 2017-02-27 10:45 | disposition home or self-care (01) ==
LOC: ER 21:18 → 2ND 23:44
PROVIDERS: Emergency Medicine; Internal Medicine Adolescent Medicine
DX: N39.0 Urinary tract infection, site not specified (principal); R41.0 Disorientation, unspecified; I10 Essential (primary) hypertension; Z86.73 Personal history of transient ischemic attack (TIA), and cerebral infarction without residual deficits; J44.9 Chronic obstructive pulmonary disease, unspecified; E11.9 Type 2 diabetes mellitus without complications; E78.5 Hyperlipidemia, unspecified; M30.1 Polyarteritis with lung involvement [Churg-Strauss]; Z90.49 Acquired absence of other specified parts of digestive tract; Z79.01 Long term (current) use of anticoagulants; Z95.0 Presence of cardiac pacemaker; Z79.4 Long term (current) use of insulin; Z79.891 Long term (current) use of opiate analgesic; Z79.899 Other long term (current) drug therapy
CPT/HCPCS: G0378; J2405

== ENCOUNTER 2017-03-07 10:15 | Outpatient (CLI) | payer MEDICARE ==
[~2017-03-07 10:15] MED LIST changes: +FUROSEMIDE 40MG40 M1 PO; +LISINOPRIL 10MG10 MG PO; +OMNICEF 300 MG300 MG PO
[2017-03-07 10:49] LABS: GFR (ESTIMATED) 34 ML/MIN (59-)
[2017-03-07 11:45] VITALS: BP 130/77
[2017-03-07 12:00] VITALS: BP 126/70
[2017-03-07 12:30] VITALS: BP 122/70
[2017-03-07 13:00] VITALS: BP 126/74
[2017-03-07 13:30] VITALS: BP 118/70
[2017-03-07 14:00] VITALS: BP 122/74
== END 2017-03-07 14:15 | disposition home or self-care (01) ==
LOC: COP 10:15
PROVIDERS: Internal Medicine
DX: N39.0 Urinary tract infection, site not specified (principal); B95.2 Enterococcus as the cause of diseases classified elsewhere
CPT/HCPCS: J3370

== ENCOUNTER 2017-03-08 10:15 | Outpatient (CLI) | payer MEDICARE ==
[2017-03-08 10:41] VITALS: BP 90/52
[2017-03-08 11:11] VITALS: BP 98/55
[2017-03-08 11:41] VITALS: BP 96/55
[2017-03-08 12:11] VITALS: BP 102/50
[2017-03-08 12:41] VITALS: BP 103/57
[2017-03-08 13:00] VITALS: BP 119/73
== END 2017-03-08 13:05 | disposition home or self-care (01) ==
LOC: COP 10:15
DX: N39.0 Urinary tract infection, site not specified (principal); B95.2 Enterococcus as the cause of diseases classified elsewhere
CPT/HCPCS: J3370

== ENCOUNTER 2017-03-09 10:20 | Outpatient (CLI) | payer MEDICARE ==
[~2017-03-09] VITALS: Ht 165.1 cm; Wt 80.7 kg
[2017-03-09 12:03] LABS: BUN 42 mg/dL (7-18)
[2017-03-09 12:04] LABS: GFR (ESTIMATED) 28 ML/MIN (59-)
[2017-03-09 12:25] VITALS: BP 107/64
[2017-03-09 12:55] VITALS: BP 107/57
[2017-03-09 13:25] VITALS: BP 137/53
[2017-03-09 13:55] VITALS: BP 105/64
[2017-03-09 14:25] VITALS: BP 114/66
[2017-03-09 14:40] VITALS: BP 104/57
== END 2017-03-09 15:00 | disposition home or self-care (01) ==
LOC: COP 10:20
PROVIDERS: Internal Medicine
DX: N39.0 Urinary tract infection, site not specified (principal); B95.2 Enterococcus as the cause of diseases classified elsewhere
CPT/HCPCS: J3370

== ENCOUNTER 2017-03-10 08:15 | Outpatient (CLI) | payer MEDICARE ==
[~2017-03-10] VITALS: Ht 165.1 cm; Wt 80.7 kg
[2017-03-10 09:00] VITALS: BP 89/49
[2017-03-10 09:30] VITALS: BP 103/53
[2017-03-10 10:00] VITALS: BP 94/50
[2017-03-10 10:30] VITALS: BP 113/58
[2017-03-10 11:00] VITALS: BP 107/61
[2017-03-10 11:10] VITALS: BP 102/60
== END 2017-03-10 11:30 | disposition home or self-care (01) ==
LOC: COP 08:15
DX: N39.0 Urinary tract infection, site not specified (principal); B95.2 Enterococcus as the cause of diseases classified elsewhere
CPT/HCPCS: J3370

== ENCOUNTER → 2017-03-11 | Outpatient (CLI) | payer MEDICARE ==
[~2017-03-11] VITALS: Ht 165.1 cm; Wt 79.4 kg
[2017-03-11 10:30] VITALS: BP 92/55; BP 95/64
== END ==
LOC: COP 10:00
DX: N39.0 Urinary tract infection, site not specified (principal); B95.2 Enterococcus as the cause of diseases classified elsewhere
CPT/HCPCS: J3370

== ENCOUNTER → 2017-03-12 | Outpatient (CLI) | payer MEDICARE ==
[~2017-03-12] VITALS: Ht 165.1 cm; Wt 79.4 kg
[2017-03-12 09:50] VITALS: BP 115/66
[2017-03-12 12:05] VITALS: BP 138/71
== END ==
LOC: COP 09:34
DX: N39.0 Urinary tract infection, site not specified (principal); B95.2 Enterococcus as the cause of diseases classified elsewhere
CPT/HCPCS: J3370

== ENCOUNTER → 2017-03-13 | Outpatient (CLI) | payer MEDICARE ==
[2017-03-13 10:00] VITALS: BP 102/52
[2017-03-13 10:30] VITALS: BP 103/50
[2017-03-13 11:00] VITALS: BP 105/55
[2017-03-13 11:30] VITALS: BP 105/66
[2017-03-13 12:00] VITALS: BP 105/55
[2017-03-13 12:30] VITALS: BP 105/52
== END ==
LOC: COP 10:00
DX: N39.0 Urinary tract infection, site not specified (principal); B95.2 Enterococcus as the cause of diseases classified elsewhere
CPT/HCPCS: J3370

== ENCOUNTER → 2017-05-02 | Outpatient (CLI) | payer MEDICARE ==
[2017-05-02 12:19] LABS: BUN 42 mg/dL (7-18)
[2017-05-02 12:23] LABS: GFR (ESTIMATED) 30 ML/MIN (59-)
[2017-05-02 12:26] LABS: HEMOGLOBIN 11.2 g/dL (12.2-16.2); LYMPH # 2.4 K/mm3 (0.7-4.5); LYMPH % 35.3 % (10-50.0)
== END ==
LOC: LAB 10:17
PROVIDERS: Internal Medicine
DX: E11.42 Type 2 diabetes mellitus with diabetic polyneuropathy (principal); E11.65 Type 2 diabetes mellitus with hyperglycemia; E78.5 Hyperlipidemia, unspecified; E03.9 Hypothyroidism, unspecified; I10 Essential (primary) hypertension; M54.41 Lumbago with sciatica, right side

== ENCOUNTER 2017-05-27 13:06 | Emergency (ER) | payer MEDICARE ==
[~2017-05-27] VITALS: Ht 165.1 cm; Wt 80.7 kg
--- OUTSIDE RECORDS SUMMARY | 2017-05-27 13:20 | External Medical Summary Rpt | CCD ---
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 [[place] uss] M62.82 Rhabdomyoly 11-09-2016 sis N17.9 Acute 11-09-2016 kidney failure, unspecified N39.0 Urinary 11-09-2016 tract infection, site not specified S36.409A Unspecified 11-09-2016 injury of unspecified part of small intestine, initial encounter S36.509A Unspecified 11-09-2016 injury of unspecified part of colon, initial encounter Z86.73 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), and cerebral infarction without residual deficits Z93.1 Gastrostomy 11-09-2016 status Z95.0 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 K56.69 Other 10-30-2016 intestinal obstruction [id number] Asthma [facility] 250.60 Diabetic [place] peripheral [facility] [id number] Migraine [facility] [id number] Osteoarthri [facility] 401.9 Essential [place] hypertensio [facility] 427.31 Atrial [place] fibrillatio [facility] 427.81 Sick sinus [facility] [id number] Diabetes [place] mellitus [facility] type 2 [facility] 447.6 Vasculitis [facility] 10543125 Rheumatoid [place] arthritis [facility] [id number] Chronic [facility] E11.9 TYPE 2 DIABETES MELLITUS WITHOUT COMPLICATIO NS E86.0 DEHYDRATION G89.4 CHRONIC PAIN SYNDROME I20.0 UNSTABLE ANGINA I48.91 UNSPECIFIED ATRIAL FIBRILLATIO N I63.9 CEREBRAL INFARCTION, UNSPECIFIED I95.1 ORTHOSTATIC HYPOTENSION K56.60 UNSPECIFIED INTESTINAL OBSTRUCTION K57.92 DVTRCLI OF INTEST, PART UNSP, W/O PERF OR ABSCESS W/O BLEED K62.5 HEMORRHAGE OF ANUS AND RECTUM M35.00 SICCA SYNDROME, UNSPECIFIED M51.16 INTERVERTEB RAL DISC DISORDERS W RADICULOPAT HY, LUMBAR REGION N28.9 DISORDER OF KIDNEY AND URETER, UNSPECIFIED R07.9 CHEST PAIN, UNSPECIFIED R10.9 UNSPECIFIED ABDOMINAL PAIN R33.8 OTHER RETENTION OF URINE R41.0 DISORIENTAT ION, UNSPECIFIED R47.1 DYSARTHRIA AND ANARTHRIA R53.1 WEAKNESS R55 SYNCOPE AND COLLAPSE S00.03XA CONTUSION OF SCALP, INITIAL ENCOUNTER S39.012A STRAIN OF MUSCLE, FASCIA AND TENDON OF LOWER BACK, INIT S70.01XA CONTUSION OF RIGHT HIP, INITIAL ENCOUNTER S92.911A UNSP FRACTURE OF RIGHT TOE(S), INIT FOR CLOS FX T14.8 OTHER INJURY OF UNSPECIFIED BODY REGION W19.XXXA UNSPECIFIED FALL, INITIAL ENCOUNTER Allergies, Adverse Reactions, Alerts Type Allergy to [...] Ac /5 ti ML ve Vi al AP 00 12 0 No AP 40 -2 /H 60 4- Lo YD 36 20 ng RO 56 13 er CO 2 DO Ac NE ti ve 32 5 MG -5 MG FS 12 0 No -2 BL 4- [...] 00 12 0 No SO 18 -2 GA 50 4- Lo OL 77 20 ng [...] Ac /5 ti ML ve Vi al AP 00 12 0 No AP 40 -2 /H 60 4- Lo YD 36 20 ng RO 56 13 er CO 2 DO Ac NE ti ve 32 5 MG -5 MG Al 68 12 0 No pr 08 [...] Ac /5 ti ML ve Vi al AP 00 12 0 No AP 40 -2 /H 60 4- Lo YD 36 20 ng RO 56 13 er CO 2 DO Ac NE ti ve 32 5 MG -5 MG Al 68 12 0 No pr 08 [...] ti 4 ve MG /2 ML AL GA 00 05 0 No OM 64 -0 [...] Order Detail nces retati t Range on Hemoglobin A1c measurement (05-02-2017 10:23) Hemoglo 12.7 % 0.0-7.0 complet bin A1c 017 ed 10:23 CBC w auto diff (05-02-2017 10:23) Automat = 3.3 % 0.1-12. complet ed 017 0 ed blood 10:23 eosinop hils/10 0 leukocy t Automat = 0.2 0.0-0.4 complet ed 017 K/mm3 ed blood 10:23 eosinop hil count Baso % = 0.3 % 0.1-2.0 complet 017 ed 10:23 Automat = 0.0 0-0.2 complet ed 017 K/MM3 ed blood 10:23 basophi l count (count/ vo Blood = 6.7 4.8-10. complet leukocy 017 K/MM3 8 ed xavier 10:23 count (number /volume ) Automat = 13.4 11.5-17 complet ed 017 % .5 ed erythro 10:23 cyte distrib ution width Red = 3.69 4.2-5.4 complet blood 017 M/mm3 ed cell 10:23 count Blood = 157 142-424 complet platele 017 K/mm3 ed t count 10:23 Automat = 8.8 7.4-10. complet ed 017 fl 4 ed blood 10:23 platele t mean volume timothy [place] % = 4.3 % 1.7-9.3 complet 017 ed 10:23 Absolut = 0.3 0.1-1.0 complet e 017 K/mm3 ed monocyt 10:23 e count Automat = 100.3 82.2-97 complet ed 017 fl .8 ed erythro 10:23 cyte mean corpusc ular v Automat = 30.2 31.8-35 complet ed 017 g/dl .4 ed erythro 10:23 cyte mean corpusc ular h Mean = 30.3 27-31.2 complet corpusc 017 pg ed ular 10:23 hemoglo bin (MCH) determ Lymphoc = 35.3 10-50.0 complet yte 017 % ed count, 10:23 blood, automat ed Absolut = 2.4 0.7-4.5 complet e 017 K/mm3 ed lymphoc 10:23 yte count Blood = 11.2 12.2-16 complet hemoglo 017 g/dL .2 ed bin 10:23 measure ment (mass/v olum Blood = 37.0 37.0-47 complet hematoc 017 % .0 ed rit 10:23 (volume fractio n) Granulo = 56.9 37.0-80 complet cyte 017 % .0 ed percent 10:23 age Blood = 3.8 1.8-7.8 complet granulo 017 K/mm3 ed cytes 10:23 automat ed count (numb Serum or plasma thyroid stimulating horm (05-02-2017 10:23) Serum = 4.59 0.358-3 complet or 017 uIU/ml .740 ed plasma 10:23 thyroid stimula ting horm Lipid profile (05-02-2017 10:23) Total = 137 < 200 complet cholest 017 mg/dL ed janine 10:23 measure ment Serum = 43.6 0-40 complet or 017 ed plasma 10:23 cholest janine in VLDL christine Serum = 218 30-200 complet or 017 mg/dL ed plasma 10:23 triglyc eride measure ment Serum = 42.4 0-130 complet or 017 mg/dL ed plasma 10:23 cholest janine in LDL measu Serum = 51.0 40-60 complet or 017 MG/DL ed plasma 10:23 cholest janine in HDL measu Comprehensive metabolic panel (05-02-2017 10:23) Protein = 6.3 6.4-8.2 complet total 017 gm/dL ed ser/she 10:23 s ALT = 17 12-78 complet (SGPT) 017 U/L ed ser/she 10:23 s Serum = 10 15-37 complet or 017 U/L ed plasma 10:23 asparta te aminotr ansfera Serum = 130 136-145 complet sodium 017 mmoL/L ed measure 10:23 ment Serum = 5.5 3.5-5.1 complet potassi 017 mmoL/L ed um 10:23 measure ment Serum = 589 74-106 complet or 017 mg/dL ed plasma 10:23 glucose measure ment (mas Serum = 2.9 1.3-3.2 complet globuli 017 gm/dL ed n 10:23 measure ment (mass/v olume) Estimat = 30 59- complet ed 017 ML/MIN ed glomeru 10:23 lar filtrat ion rate (GF Serum = 1.7 0.55-1. complet or 017 mg/dL 02 ed plasma 10:23 creatin ine measure ment ( Carbon = 26 21.0-32 complet dioxide 017 mmoL/L .0 ed 10:23 measure ment Serum = 97 98-107 complet or 017 mmoL/L ed plasma 10:23 chlorid e measure ment (mo Serum = 8.8 8.5-10. complet or 017 mg/dL 1 ed plasma 10:23 calcium measure ment (mas Serum = 42 7-18 complet or 017 mg/dL ed plasma 10:23 urea nitroge n measure men Serum = 0.3 0.2-1.0 complet or 017 mg/dL ed plasma 10:23 total bilirub in measure m Serum = 166 46-116 complet or 017 U/L ed plasma 10:23 alkalin e phospha tase timothy Serum = 3.4 3.4-5.0 complet or 017 gm/dL ed plasma 10:23 albumin measure ment (mas Serum = 1.2 1.1-1.8 complet or 017 ed plasma 10:23 albumin /globul in mass ra Chloride Bld-sCnc (10-31-2016 17:00) Chlorid 114 101-108 [...] c Bacteria Ur Cult (10-30-2016 00:25) Bacteri [id number] complet a XXX 017 5 yeast ed [...] 10:37 Fungus Tiss Cult (08-01-2016 16:33) Bacteri [id number] complet a XXX 017 03 ed Anaerob 16:33 sample: e+Aerob fungus e Cult not isolate d (findin g) SCT NF21 NO FUNGAL GROWTH AT 3 WEEKS L Bacteri [id number] complet a XXX 017 03 ed Anaerob 16:33 sample: e+Aerob fungus e Cult not isolate d (findin g) SCT NF42 NO FUNGAL GROWTH AT 6 WEEKS L Mycobacterium XXX Ql Cult (08-01-2016 16:33) Bacteri [id number] complet a XXX 017 00 not ed Anaerob 16:33 isolate e+Aerob d e Cult (qualif ier value) SCT NM21 NO ACID FAST BACILLI ISOLATE D AT 3 WEEKS L Bacteri [id number] complet a XXX 017 00 not ed Anaerob 16:33 isolate e+Aerob d e Cult (qualif ier value) SCT NM42 NO ACID FAST BACILLI ISOLATE D AT 6 WEEKS L PT BldC (04-27-2016 08:40) PT PPP 14.3 12.8-15 complet 016 seconds .2 ed 08:40 INR PPP 1.2 0.8-1.2 complet 016 ed 08:40 Comment: Serial Number: [id number] Nuclear Physics Teacher: [id number] Bas Metab 2000 Pnl SerPl (04-27-2016 08:23) Comment: Meter: [id number] Nuclear Physics Teacher: [id number] Sami Haddad Glucose 163 70-130 complet BldC [...] /Glob 014 ed SerPl-m 11:25 Rto Bilirub 18-2 0.4 0.2-1.0 complet 014 mg/dL ed SerPl-m [...] Bld 014 .0 ed 11:25 MCV RBC 18-2 96.5 fl 82.2-97 complet 014 .8 ed 11:25 MCH RBC 18-2 31.3 pg 27-31.2 complet Qn 014 ed Auto 11:25 MEAN 18-2 32.5 31.8-35 complet CORPUSC 014 g/dl .4 ed ULAR 11:25 HGB CONC RDW RBC -18-2 15.1 % 11.5-17 complet Auto 014 .5 [...] YELLOW complet COLOR 014 ed 10:53 URINE -18-2 CLOUDY CLEAR complet APPEARA 014 ed NCE 10:53 URINE -18-2 3+ NEG complet GLUCOSE 014 ed - 10:53 DIPSTIC K URINE 01-18-2 NEGATIV NEG complet BILIRUB 014 E ed IN - 10:53 DIPSTIC K URINE 01-18-2 NEGATIV NEG complet KETONE 014 E mg/dL ed 10:53 URINE 01-18-2 1.020 1.005-1 complet SPECIFI 014 UNK .030 ed C 10:53 GRAVITY URINE -18-2 NEGATIV NEG complet BLOOD 014 E ed 10:53 URINE 01-18-2 5.5 UNK 5.0-8.5 complet PH 014 ed 10:53 URINE -18-2 NEGATIV NEG complet PROTEIN 014 E mg/dL ed - 10:53 DIPSTIC K URINE 0.2 NEG complet UROBILI 014 E.U./dL ed NOGEN - 10:53 DIPSTIC K URINE NEGATIV NEG complet NITRATE 014 E ed - 10:53 DIPSTIC K URINE 07-06-2 TRACE NEG complet LEUK 014 ed ESTERAS [...] ed ULAR 05:55 HGB CONC RDW RBC 14.9 % 11.5-17 complet Auto 014 .5 [...] 014 K/mm3 ed Bld 05:55 Auto Eosinop 01-13-2 0.2 0.0-0.4 complet hil # 014 K/mm3 ed Bld 05:55 Auto Basophi 01-13-2 0.0 0-0.2 complet ls # 014 K/MM3 ed Bld 05:[address] [facility] Glucomtr-[facility] (06-11-2013 11:48) Glucose 06-11-2 395 70-110 High complet BldC 013 mg/dl alert ed Glucomt 11:48 [facility] Glucose dC Glucomtr-[facility] (06-11-2013 06:28) Glucose 06-11-2 235 70-110 complet BldC 013 mg/dl ed Glucomt 06:28 [facility] COMPREHENSIVE METABOLIC PANEL (06-11-2013 01:05) Glucose 06-11-2 351 74-106 complet 013 mg/dL ed Bld-n 01:05 c BUN 06-11-2 17 7-18 complet Bld-n 013 mg/dL ed c 01:05 Creat 06-11-2 1.0 0.6-1.0 complet SerPl-m 013 mg/dL ed [...] ed Cnc 01:05 PROTIME/INR (06-11-2013 01:05) PROTHRO 06-11- 16.9 9.9-11. complet MBIN 013 SECONDS 6 ed TIME 01:05 INR Bld 12-24-2 1.57 0.9-1.1 complet 013 UNK ed 01:05 CBC with AUTO DIFF (06-11-2013 01:05) WBC # 12-24-2 10.4 4.8-10. complet Bld 013 K/MM3 8 ed Auto 01:05 RBC # 12-24-2 4.24 4.2-5.4 complet Bld 013 M/mm3 ed Auto 01:05 Hgb 12-24-2 13.5 12.2-16 complet Bld-mCn 013 g/dL .2 ed c 01:05 Hct Fr 12-24-2 40.7 % 37.0-47 complet Bld 013 .0 ed 01:05 MCV RBC 24-2 95.9 fl 82.2-97 complet 013 .8 ed 01:05 MCH RBC 24-2 31.8 pg 27-31.2 complet Qn 013 ed Auto 01:05 MEAN 12-24-2 33.2 31.8-35 complet CORPUSC 013 g/dl .4 ed ULAR 01:05 HGB CONC RDW RBC -24-2 15.3 % 11.5-17 complet Auto 013 .5 ed 01:05 Platele 12-24-2 194 142-424 complet t Bld 013 K/mm3 [...] 013 K/mm3 ed Bld 01:05 Auto Monocyt 06-11-2 0.4 0.1-1.0 complet es # 013 K/mm3 [...] 013 mg/dL ed SerPl-m 11:05 Cnc AST 04-09- 16 U/L 15-37 complet SerPl-c 013 ed [...] with AUTO DIFF (04-09-2013 11:05) WBC # 04-09-2 5.7 4.8-10. complet Bld 013 K/MM3 8 [...] % 10-50.0 complet 013 ed 11:05 Monocyt 22-2 4.1 % 1.7-9.3 complet es Fr 013 ed Bld 11:05 Auto Eosinop 22-2 2.8 % 0.1-12. complet hil Fr 013 [...] 013 K/mm3 ed Bld 11:05 Auto Basophi 22-2 0.0 0-0.2 complet ls # 013 K/MM3 ed Bld 11:05 Auto COMPREHENSIVE METABOLIC PANEL (03-21-2013 15:00) Glucose 324 74-106 complet 013 mg/dL ed Bld-mCn 15:00 c BUN 18 7-18 complet Bld-mCn 013 mg/dL ed c 15:00 Creat 1.0 0.6-1.0 complet SerPl-m 013 mg/dL ed Cnc 15:00 GFR 55 59- complet (ESTIMA 013 ML/MIN ed ALLYSNO) 15:00 Sodium 139 136-145 complet SerPl-s 013 [...] K/MM3 8 ed Auto 15:00 RBC # 03-21- 3.95 4.2-5.4 complet Bld 013 M/mm3 ed [...] 013 0 ed Bld 15:00 Auto Basophi 2 0.4 % 0.1-2.0 complet ls Fr 013 ed Bld 15:00 Auto Granulo 2 2.9 1.8-7.8 complet cytes # 013 K/mm3 ed Bld 15:00 Auto Lymphoc 2 3.4 0.7-4.5 complet ytes Fr 013 K/mm3 [...] K/MM3 8 ed Auto 10:00 RBC # 05-09-2 4.28 4.2-5.4 complet Bld 013 M/mm3 ed [...] ed ULAR 10:00 HGB CONC RDW RBC 10-25- 15.3 % 11.5-17 complet Auto 013 .5 ed 10:00 Platele 223 142-424 complet t Bld 013 K/mm3 ed Ql 10:00 Manual MEAN 7.6 fl 7.4-10. complet PLATELE 013 4 ed T 10:00 VOLUME Granulo --2 71.1 % 37.0-80 complet cytes 013 .0 ed Fr Bld 10:00 Auto LYMPH % -09-2 24.7 % 10-50.0 complet 013 ed 10:00 Monocyt --2 2.6 % 1.7-9.3 complet es Fr 013 ed Bld 10:00 Auto Eosinop --2 1.4 % 0.1-12. complet hil Fr 013 0 ed Bld 10:00 Auto Basophi -09-2 0.2 % 0.1-2.0 complet ls Fr 013 ed Bld 10:00 Auto Granulo -09-2 5.4 1.8-7.8 complet cytes # 013 K/mm3 ed Bld 10:00 Auto Lymphoc -09-2 1.9 0.7-4.5 complet ytes Fr 013 K/mm3 ed Bld 10:00 Auto Monocyt -09-2 0.2 0.1-1.0 complet es # 013 K/mm3 ed Bld 10:00 Auto Eosinop 10-25-2 0.1 0.0-0.4 complet hil # 013 K/mm3 ed Bld 10:00 Auto Basophi 10-25-2 0.0 0-0.2 complet ls # 013 K/MM3 ed Bld 10:00 Auto COMPREHENSIVE METABOLIC PANEL (09-07-2012 13:20) Glucose 09-07- 338 74-106 complet 013 mg/dL ed Bld-mCn 13:20 c BUN 09-07- 11 7-18 complet Bld-mCn 013 mg/dL ed c 13:20 Creat 1.0 0.6-1.0 complet SerPl-m 013 mg/dL ed Cnc 13:20 GFR 55 59- complet (ESTIMA 013 ML/MIN ed ALLYSON) 13:20 Sodium 137 136-145 complet SerPl-s 013 mmoL/L ed Cnc 13:20 Potassi 3.5 3.5-5.1 complet um 013 mmoL/L ed SerPl-s 13:20 Cnc Chlorid 102 98-107 complet e 013 mmoL/L ed SerPl-s 13:20 Cnc CO2 23 21.0-32 complet SerPl-s 013 mmoL/L .0 ed Cnc 13:20 Calcium 8.5 8.5-10. complet 013 mg/dL 1 ed SerPl-m 13:20 Cnc Prot 09-07-2 6.9 6.4-8.2 complet SerPl-m 013 gm/dL ed Cnc 13:20 Albumin 09-07- 3.3 3.4-5.0 complet 013 gm/dL ed SerPl-m 13:20 Cnc Globuli 09-07-2 3.6 1.3-3.2 complet n 013 gm/dL ed Ser-mCn 13:20 c Albumin 2 0.9 UNK 1.1-1.8 complet /Glob 013 ed SerPl-m 13:20 Rto Bilirub 09-07-2 0.2 0.2-1.0 complet 013 mg/dL ed SerPl-m 13:20 Cnc AST 25 U/L 15-37 complet SerPl-c 013 ed Cnc 13:20 ALT 22-2 42 U/L 30-65 complet SerPl-c 013 ed Cnc 13:20 ALP 09-07-2 157 U/L 50-136 complet SerPl-c 013 ed [...] Bld 013 .0 ed 13:20 MCV RBC 09-07-2 94.5 fl 82.2-97 complet 013 .8 ed 13:20 MCH RBC 09-07-2 31.2 pg 27-31.2 complet Qn 013 ed Auto 13:20 MEAN 09-07-2 33.0 31.8-35 complet CORPUSC 013 g/dl .4 ed ULAR 13:20 HGB CONC RDW RBC 22-2 14.3 % 11.5-17 complet Auto 013 .5 ed 13:20 Platele 09-07-2 216 142-424 complet t Bld 013 K/mm3 ed Ql 13:20 Manual MEAN 09-07-2 7.7 fl 7.4-10. complet PLATELE 013 4 ed T 13:20 VOLUME Granulo 22-2 56.1 % 37.0-80 complet cytes 013 .0 ed Fr Bld 13:20 Auto LYMPH % -22-2 38.1 % 10-50.0 complet 013 ed 13:20 Monocyt -22-2 3.1 % 1.7-9.3 complet es Fr 013 ed Bld 13:20 Auto Eosinop -22-2 2.5 % 0.1-12. complet hil Fr 013 0 ed Bld 13:20 Auto Basophi 03-22-2 0.3 % 0.1-2.0 complet ls Fr 013 ed Bld 13:20 Auto Granulo -22-2 4.7 1.8-7.8 complet cytes # 013 K/mm3 ed Bld 13:20 Auto Lymphoc 22-2 3.2 0.7-4.5 complet ytes Fr 013 K/mm3 ed Bld 13:20 Auto Monocyt 22-2 0.3 0.1-1.0 complet es # 013 K/mm3 ed Bld 13:20 Auto Eosinop 22-2 0.2 0.0-0.4 complet hil # 013 K/mm3 ed Bld 13:20 Auto Basophi 09-07-2 0.0 0-0.2 complet ls # 013 K/MM3 ed Bld 13:20 Auto Encounters Encounter Start End Date Code Location Performer Type Date Emergency ANGELINA MATHIS MD (ER) 4 10:37 4 12:58 [facility] Emergency ANGELINA Webster (ER) 4 05:33 4 11:02 [facility] E. Inpatient DENG Ballesteros MD (IN) 3 00:52 3 03:03 [facility] Emergency ANGELINA Ward MD (ER) 3 10:19 3 12:32 [facility] Emergency ANGELINA MATHIS MD (ER) 3 13:59 3 15:36 [facility] Emergency ANGELINA Ward MD (ER) 3 15:47 3 18:22 [facility] Emergency ANGELINA Webster (ER) 3 10:13 3 12:44 [facility] Manny E. Emergency ANGELINA DIOP MD (ER) 3 14:00 3 16:40 [facility]
--- OUTSIDE RECORDS SUMMARY | 2017-05-27 13:20 | External Medical Summary Rpt | CCD ---
Author Author , SAEID Organization SAEID Address Unknown Phone [email or web address] Care Team Providers Care Fleet Service Clerk Name Role Phone Lj Ballesteros MD, Unavailable [...] shoulder joint K56.69 Other 10-30-2016 intestinal obstruction [id number] Asthma [facility] 250.60 Diabetic [place] peripheral [facility] [id number] Migraine [facility] [id number] Osteoarthri [facility] 401.9 Essential [place] hypertensio [facility] 427.31 Atrial [place] fibrillatio [facility] 427.81 Sick sinus [facility] [id number] Diabetes [place] mellitus [facility] type 2 [facility] 447.6 Vasculitis [facility] [id number] Rheumatoid [place] arthritis [facility] [id number] Chronic [facility] E11.9 TYPE 2 DIABETES MELLITUS WITHOUT [...] 00 12 0 No SO 18 -2 SD 50 4- Lo OL 77 20 ng [...] ti 4 ve MG /2 ML AL SD 00 05 0 No OM 64 -0 [...] blood 10:23 platele t mean volume timothy Hughes % = 4.3 % 1.7-9.3 complet 017 [...] c Bacteria Ur Cult (10-30-2016 00:25) Bacteri [id number] complet a XXX 017 5 yeast ed [...] 10:37 Fungus Tiss Cult (08-01-2016 16:33) Bacteri [id number] complet a XXX 017 03 ed Anaerob 16:33 sample: e+Aerob fungus e Cult not isolate d (findin g) SCT NF21 NO FUNGAL GROWTH AT 3 WEEKS L Bacteri [id number] complet a XXX 017 03 ed Anaerob 16:33 sample: e+Aerob fungus e Cult not isolate d (findin g) SCT NF42 NO FUNGAL GROWTH AT 6 WEEKS L Mycobacterium XXX Ql Cult (08-01-2016 16:33) Bacteri [id number] complet a XXX 017 00 not ed Anaerob 16:33 isolate e+Aerob d e Cult (qualif ier value) SCT NM21 NO ACID FAST BACILLI ISOLATE D AT 3 WEEKS L Bacteri [id number] complet a XXX 017 00 not ed Anaerob 16:33 isolate e+Aerob d e Cult (qualif ier value) SCT NM42 NO ACID FAST BACILLI ISOLATE D AT 6 WEEKS L PT BldC (04-27-2016 08:40) PT PPP 14.3 12.8-15 complet 016 seconds .2 ed 08:40 INR PPP 1.2 0.8-1.2 complet 016 ed 08:40 Comment: Serial Number: [id number] Steel Fixer: [id number] Bas Metab 2000 Pnl SerPl (04-27-2016 08:23) Comment: Meter: [id number] Steel Fixer: [id number] Sami Haddad Glucose 163 70-130 complet BldC [...] 014 K/MM3 ed Bld 05:55 Auto Glucose [facility] Glucomtr-[facility] (06-11-2013 11:48) Glucose 06-11-2 395 70-110 High complet BldC 013 mg/dl alert ed Glucomt 11:48 [facility] Glucose dC Glucomtr-[facility] (06-11-2013 06:28) Glucose 06-11-2 235 70-110 complet BldC 013 mg/dl ed Glucomt 06:28 [facility] COMPREHENSIVE METABOLIC PANEL (06-11-2013 01:05) Glucose [...] MATHIS MD (ER) 4 10:37 4 12:58 [facility] Emergency ANGELINA Webster (ER) 4 05:33 4 11:02 [facility] E. Inpatient DENG Ballesteros MD (IN) 3 00:52 3 03:03 [facility] Emergency ANGELINA Ward MD (ER) 3 10:19 3 12:32 [facility] Emergency ANGELINA MATHIS MD (ER) 3 13:59 3 15:36 [facility] Emergency ANGELINA Ward MD (ER) 3 15:47 3 18:22 [facility] Emergency ANGELINA Webster (ER) 3 10:13 3 12:44 [facility] Emergency ANGELINA DIOP MD (ER) 3 14:00 3 16:40 [facility]
--- OUTSIDE RECORDS SUMMARY | 2017-05-27 13:21 | External Medical Summary Rpt | CCD ---
Demographics Preferred Language Moroccan Marital Status Unknown Jewish Affiliation Unknown Race Unknown Ethnic Group Unknown Author Author , SAEID BREAUX Address Unknown Phone Immunization No patient found.
--- OUTSIDE RECORDS SUMMARY | 2017-05-27 13:21 | External Medical Summary Rpt | CCD ---
Demographics Preferred Language Brazilian Marital Status Unknown Denominational Affiliation Unknown Race Unknown Ethnic Group Unknown Author Author , SAEID BREAUX Address Unknown Phone Immunization No patient found.
--- NOTE | 2017-05-27 14:30 | Urgent Treatment Center Report ---
History of Present Issue Date/Time Seen by Provider 05/27/17 9246 Visit Reason Pt arrived:Wheelchair Presenting Problem:PT ADVISES SHE FELL LAST NIGHT AND IS C/O LEFT KNEE AND ANKLE PAIN Location if Accident: Onset of symptoms date/time:/ or onset unknown for:MEDICAL HX UNKNOWN Have you (or family members/close friends) recently traveled outside the [place]? N If Yes, where/when: Have you had exposure to infectious disease within the past month? TB? Other? Specify: Source patient, RN notes reviewed, family Exam Limitations no limitations Comment 72-year-old female presents for LEFT hip and knee and RIGHT foot pain. Patient states last night around 5:00 she was walking with her walker wheel got caught on the baby gate and landing on hip and knee and small abrasion to RIGHT great and middle toe. Patient states she put ice on it last night but now is unable to walk due to pain. ALLERGIES Coded Allergies: amitriptyline (From Elavil) (Severe, C-[id number]-UZLF/THROAT; SEIZURES 07/30/15) chlorpromazine (From Thorazine) (Severe, SEIZURES 07/30/15) dichloralphenazone (From Midrin) (Severe, M-AHOYXJ-TDGB/THROAT 07/30/15) isometheptene (From Midrin) (Severe, A-VLSEHY-ORCM/THROAT 07/30/15) prochlorperazine (From Compazine) (Severe, SEIZURES 07/30/15) acetaminophen (From MIDRIN) (Intermediate, 10/14/16) adhesive tape (Intermediate, I-RASH 07/30/15) aspirin (Intermediate, "COLD SWEATS", N/V 07/30/15) Iodinated Contrast- Oral and IV Dye (IODINATED CONTRAST MEDIA - ORAL AND) (10/29) Sulfa (Sulfonamide Antibiotics) ("CONTRAINDICATED WITH ASTHMA" 07/30/15) cyclobenzaprine (From FLEXERIL) (10/29/16) duloxetine (10/29/16) trimethoprim (10/29/16) Beta-Blockers (Beta-Adrenergic Bloc (Severe, "MAKES ASTHMA WORSE" 07/30/15) caffeine (From Cafergot) (Mild, NA-NAUSEA 07/30/15) ergotamine (From Cafergot) (Mild, NA-NAUSEA 07/30/15) pregabalin (From Lyrica) (Mild, "TOO SEDATED" 07/30/15) Home Medications Reported Medications INSULIN ASPART (Novolog) 0 SC ACHS Fentanyl (Fentanyl 50MCG Patch) 50 MCG TD Q72H OXYCODONE HCL (Roxicodone) 10 MG PO Q4HP PRN PAIN Bisoprolol Fumarate 10 MG PO DAILY #90 TAB LISINOPRIL (Lisinopril) 10 MG PO DAILY POTASSIUM CHL (Potassium Chloride) 20 MEQ PO BID ALPRAZOLAM (Alprazolam 0.25MG) 0.25 MG PO QID Gabapentin (Neurontin) 800 MG PO QID Polyethylene Glycol 3350 (Miralax) 17 GM PO DAILY PRN CONSTIPATION Apixaban (Eliquis) 5 MG PO BID Atorvastatin Calcium (Atorvastatin) 40 MG PO DAILY MELATONIN (Melatin) 1 TAB PO QHS Miconazole Nitrate (Miconazole 2% Cream 45GM) 1 WANDER TP BID Pantoprazole Sodium (Protonix 40MG TAB) 40 MG PO DAILY Furosemide 40 MG PO PRN PRN FLUID #30 History Medical History General CAD? No Angina: Yes [place]: No Hypertension? Yes Hyperlipidemia? Yes CHF? No DVT? No PE? No COPD? Yes Asthma? Yes Anemia? No GERD? No Gastric ulcers? No GI Bleed? Yes Hernia? No Thyroid Problems? No Hypothyroidism? No CVA? Yes Seizures? No Diabetes? Yes Insulin Dependent: Yes Insulin Pump: No Home FSBS? Yes Renal Insuffiency? Yes UTI? No Stones? Yes BPH? No GB Disease: Yes Nephritic Syndrome? No Asplenia? No Hepatitis? No Sickle Cell Disease? No Arthritis? Yes Migraines? No Cataracts? No Glaucoma? No MRSA? Yes HIV? No TB? Yes Anxiety? Yes Depression? Yes Cancer? No More? Yes Additional hx: MULTIPLE STROKES CHURG/MEETA ANEURYSM Immunization HX DT/Tetanus 5-10 YRS Flu 2013-FSN Pneumonia Received In Past Surgical Hx Previous Surgery?Y APPY; CHRISTINE ABD CYST/TUMOR REMOVAL Renal R SHOULDER RECONSTRUCTION LAP ABAD Orthopedic CERVICAL DISC LOWER BACK SURGERY PACEMAKER SCHURG- EDGARDO VASCULITIS BACK SURGERY CARDIAC ABLATION COLONOSCOPY COLON RESECTION LEFT EYE Family History Family HX Diabetes Yes CAD Yes Hypertension Yes Hyperlipidemia Yes Cancer Yes TB Yes Social History Smoking Hx Smoker: Never Smoker Tobacco: No Packs/day N/A Alcohol Alcohol: No Review of Systems All Other Systems Reviewed and Negative Musculoskeletal see HPI, joint pain, muscle pain Physical Exam Vital Signs Vital Signs Date Time Temp Pulse Resp B/P Pulse O2 O2 Flow FiO2 Ox Delivery Rate 05/27 1412 98.1 70 16 103/49 98 05/27 1309 98.1 70 16 103/49 98 - WBC >12,000 or <4,000 or 10% bands? 2 or more SIRS Criteria Met? B/P:103/ MAP:67 Creatinine >2.0? UA output<0.5ml/kg/hr for 2 hrs? Platelet count >100,000? Lactate >2.0mmol/1? INR >1.2 or PTT > than 60 sec? Evidence of Organ Dysfunction? Provider documented clinical suspician of infection? Sepsis Criteria Count: 0 Sepsis Risk: General Appearance normal appearance, no apparent distress Ear, Nose, Throat hearing grossly normal Neck normal inspection, full range of motion Respiratory Status Yes: trachea midline, chest symmetrical, non tender chest. No: respiratory distress. Lung Sounds bilateral: normal breath sounds, lungs clear. Cardiovascular normal exam, regular rate/rhythm Back normal inspection, no CVA tenderness, no vertebral tenderness, bowel/ bladder continent Extremities limited range of motion, LEFT knee tender to palpate. No swelling or bruising noted to hip or knee. Small abrasion noted to RIGHT great and second toe with bruising noted Neurologic alert, normal exam, oriented x 3 Medical Decision Making LABS/Meds/Orders Pt receiving controlled substance in ED? No Results/Orders Orders Procedure Date/time Status FOOT-RT-3 VIEWS 05/27 1351 Active Consult MD Physician Consult Consult/PCP renteria Time Called 1430 Reason Pt. Condition Comments Review of x-ray Departure Departure Time of Disposition 1510 Disposition DC Home or Self Care(routine) Clinical Impression Primary Impression: Muscle strain Condition STABLE Referrals Lj Ballesteros MD Patient Instructions DI for Muscle Strain, Muscle Strain Additional Instructions Ice 20 minutes they repeat Follow-up primary care this week Symptoms worsen or do not improve return to be seen in the ER Discussed fall with home physical therapy for exercises to help with pain Discharge Counseling Counseled pt/family regarding diagnosis, test results, medications/RX, home care, follow up needs at [phone]
--- NOTE | 2017-05-27 14:42 | RADIOLOGY REPORT PS360 ---
HIP LT 2-3V W/PELVIS IF PERFOR COMPARISON: AP pelvis 02/17/2017 HISTORY: Left hip pain after a fall TECHNIQUE: AP pelvis, cone-down AP and frog-leg views left hip FINDINGS: The iliac bones and pubic bones appear intact. Both hips are normally articulated with no fracture seen. There are mild degenerative changes of both hips. The SI joints and symphysis pubis per normal. There are metallic brackets and pedicle screws fusing L3 and L4. IMPRESSION: AP pelvis and left hip negative for fracture
--- NOTE | 2017-05-27 14:43 | RADIOLOGY REPORT PS360 ---
KNEE-3 VIEWS-LT COMPARISON: Left knee 01/17/2015 HISTORY: Left knee pain after a fall TECHNIQUE: AP lateral and oblique views FINDINGS: There is prominent spurring the tibial spines. There is narrowing of patellofemoral space with spurring of the superior and inferior borders of the patella. The medial lateral joint space appear normal. There is no effusion. IMPRESSION: Degenerative changes with prominent narrowing of patellofemoral space, no acute fracture seen
--- NOTE | 2017-05-27 15:13 | RADIOLOGY REPORT PS360 ---
FOOT-RT-3 VIEWS COMPARISON: Left foot 01/26/2015 HISTORY: Right foot pain after a fall TECHNIQUE: AP lateral and oblique views FINDINGS: The tarsal bones metatarsals and phalanges appear intact with no evidence of acute fracture. There is an accessory navicular bone a normal variation. The plantar arch is normal. There are prominent spurs of the calcaneus at insertion of Achilles tendon and plantar tendon. There is mild osteoarthritic change of the MP joints great toe. IMPRESSION: Prominent calcaneal spurs, right foot negative for acute fracture
[2017-05-27 15:19] VITALS: BP 103/49
[2017-06-03] MEDS ORDERED: ZOFRAN ODT4 MG PO (19:30)
[2017-06-08] MEDS ORDERED: ZOFRAN ODT4 MG PO (11:29)
== END 2017-05-27 15:19 | disposition home or self-care (01) ==
LOC: ER 13:06 → UTC 13:13 → ER 13:13 → UTC 15:19
DX: S73.102A Unspecified sprain of left hip, initial encounter (principal); S76.012A Strain of muscle, fascia and tendon of left hip, initial encounter; W01.0XXA Fall on same level from slipping, tripping and stumbling without subsequent striking against object, initial encounter; Y92.019 Unspecified place in single-family (private) house as the place of occurrence of the external cause; S90.411A Abrasion, right great toe, initial encounter; M25.562 Pain in left knee

== ENCOUNTER → 2017-05-30 | Outpatient (CLI) | payer MEDICARE ==
[~2017-05-30] MED LIST changes: +ZOFRAN ODT4 MG PO
== END ==
LOC: LAB 18:02
DX: N39.0 Urinary tract infection, site not specified (principal)

== ENCOUNTER 2017-06-02 10:42 | Outpatient (CLI) | payer MEDICARE ==
[~2017-06-02 10:42] MED LIST changes: -ZOFRAN ODT4 MG PO
[2017-06-02 11:14] LABS: URINE BILIRUBIN - DIPSTICK NEGATIVE (NEG); URINE BLOOD NEGATIVE (NEG)
[2017-06-03] MEDS ORDERED: ZOFRAN ODT4 MG PO (19:30)
[2017-06-08] MEDS ORDERED: ZOFRAN ODT4 MG PO (11:29)
== END 2017-06-02 11:20 | disposition home or self-care (01) ==
LOC: COP 10:42
PROVIDERS: Internal Medicine
DX: N39.0 Urinary tract infection, site not specified (principal); N31.9 Neuromuscular dysfunction of bladder, unspecified
CPT/HCPCS: G0463